=== PATIENT | female | born 1940 | race Caucasian/White ===

== ENCOUNTER → 2023-04-07 07:33 | Outpatient (REF) | payer OTHER, SELFPAY | LOC: RCS 07:33 | PROVIDERS: ATTENDING PHYSICIAN Specialist; FAMILY PHYSICIAN Family Medicine | DX: R94.01 Abnormal electroencephalogram [EEG] (principal) | CPT/HCPCS: 95816 ==

== ENCOUNTER 2023-06-08 13:21 | Emergency (ER) | payer OTHER, SELFPAY ==
[2023-06-08 13:26] VITALS: BP 196/108
--- NOTE | 2023-06-08 14:18 | ED.GENMED ---
History of Present Illness
General
Chief Complaint: Fainting/Passed Out
Source: patient and records
Exam Limitations: none
Time Seen by Provider: 06/08/23 14:00
Travel History
Have you had any contact with someone who has COVID-19?: No
Do you have any symptoms of coronavirus? Fever > 100 degrees, chills, cough, shortness of breath, sore throat, loss of taste or smell, muscle aches, or headache?: No
History of Present Illness
History of Present Illness:
82-year-old female with a past medical history of dementia, COPD, hypertension, unspecified brain lesion presenting emergency department today with dizziness preceding a syncopal episode along with head trauma. Patient reports that she was on the
phone with her friend today when she started to feel dizzy and subsequently fell. She is unsure if she lost consciousness or not. No one witnessed this fall. Patient states that she injured a small abrasion to the right side of her forehead along
with soft tissue swelling, patient denies any other injuries. Patient has any neck pain, extremity pain, abdominal pain. Patient feels well currently, denies any remaining dizziness. Denies chest pain, shortness of breath.
Past History
Past History
ED Past Medical History: Cancer (Lung), COPD and HTN
Social History
Tobacco: Former smoker
Review of Systems
Review of Systems
All Other Systems: ROS reviewed and negative except as documented in HPI and ROS
Phy Exam
Physical Exam
Physical Exam:
Vitals: Patient is hypertensive
General: Patient is well-appearing in no acute distress
Skin: There is a small abrasion to the right forehead with associated hematoma.
Head: See above. No facial ecchymosis, no bony deformities. Negative Hebert sign, negative raccoon sign.
Eyes: Extraocular eye movements intact. No entrapment.
Ears: No hemotympanum bilaterally.
Cardiac: Regular rate and rhythm, no murmurs
Pulm: Normal respiratory effort
Abdomen: No abdominal tenderness
Musculoskeletal: No tenderness palpation of cervical spine. Full range of motion cervical spine.
Neuro: AAOx3. Cranial nerves II through XII intact. No focal neurologic deficits. Heel to green, finger to nose testing intact. Patient at times will loose track of her thoughts, I called her memory care unit and they report that this is patient's
baseline.
Course
Orders/Labs/Results
Orders:
Orders
06/08/23 14:01
Electrocardiogram (*1) Urgent
Reason for Study: Syncope
EKG- Treatment ONCE
06/08/23 14:17
CT Head W/o Iv Contrast Urgent
Comment:
Reason For Exam: dizziness, head trauma
06/08/23 14:25
Complete Blood Count/With Diff Urgent
Comprehensive Metabolic Panel Urgent
06/08/23 17:50
Urinalysis Reflex To Culture Urgent
Date Specimen was Collected: 06/08/23
Time Specimen was Collected: 17:49
Abnormal Lab Results
06/08/23
14:25
WBC 14.5 H 10^3/uL
(4.8-10.8)
Abs Immat Gran (auto) 0.1 H 10^3/uL
(0-0.05)
Absolute Neuts (auto) 12.9 H 10^3/uL
(1.4-6.5)
Absolute Lymphs (auto) 0.8 L 10^3/uL
(1.2-3.4)
Absolute Monos (auto) 0.8 H 10^3/uL
(0.1-0.6)
Immature Gran % 0.6 H %
(0-0.5)
Neutrophils % 88.5 H %
(42.2-75.2)
Lymphocytes % 5.2 L %
(20.5-51.1)
Carbon Dioxide 31 H mmol/L
(22-30)
BUN 19 H mg/dl
(7-17)
Glucose 135 H mg/dl
(70-99)
AST 50 H U/L
(14-36)
ALT 51 H U/L
(0-35)
06/08/23 14:25
06/08/23 14:25
Vital Signs
Initial and Last Documented VS:
Initial Vital Signs
Temp Pulse Resp BP Pulse Ox
97.6 F 75 20 196/108 96
06/08/23 13:26 06/08/23 13:26 06/08/23 13:26 06/08/23 13:26 06/08/23 13:26
Last Documented Vital Signs
Temp Pulse Resp BP Pulse Ox
97.6 F 74 22 191/96 96
06/08/23 13:26 06/08/23 17:15 06/08/23 17:15 06/08/23 17:00 06/08/23 17:15
MDM/Problems Addressed
Differential Diagnosis Includes:
ddx vasovagal syncope, orthostatic hypotension, heart block, urinary tract infection epidural hematoma, intraparenchymal hemorrhage
MDM/Problems Addressed:
dizziness and syncope
Chronic conditions affecting care: HTN, Neurological disorder and Psychiatric illness
Acute Exacerbation and/or Progression of Chronic Illness: HTN, Neurological disorder and Psychiatric illness
*Pulse Oximetry
Patient hypoxic: no
*Critical Care Note
Total Time (30-74mins, 75-104mins- exclusive of procedures): Not Applicable
Data Reviewed
Review of Other/Old Records Reveals: Records (Reviewed ER physician documentation from 02/13/2023) and Discharge Summary (no discharge summaries in [facility] to review)
Source: patient and records
Patient Management
Escalation/DeEscalation of care consider admission/obs:
82-year-old female with a past medical history of dementia, COPD, hypertension, unspecified brain lesion presenting emergency department today with dizziness and a fall. She believes she passed out, but she is not entirely sure. I called patient's
memory care unit who reports that patient exited room to notify the nurses that she had fallen. No one witnessed the fall. Currently, she has no further dizziness and no headaches. She feels well. She denies neck pain. She denies any chest pain
or shortness of breath. Here in the emergency department, her CT of the head demonstrated chronic brain lesion but no new hemorrhages or fractures. Her CBC did demonstrate a leukocytosis likely reactive, CMP unremarkable. Considering patient's
history of dementia and her leukocytosis, urinalysis is done which was negative for infection. Patient is stable for discharge at this time. Plan was discussed with my attending Dr. Campos who is in agreement with plan.
Patient was also noted to have a high blood pressure upon arrival. Patient does have a history of hypertension, she does take metoprolol daily. No indication for acute lowering of her blood pressure at this time. I advised patient follow-up with
her primary care provider on this issue. I called her memory care unit and advised that they make sure she follows up on this issue and initiate daily blood pressure checks. Nurse at unit in agreement with this plan and will initiate. Patient
stable for discharge. All patient's questions answered.
Update Note
Update Note:
3:37 pm--I spoke to patient's nurse at her memory care facility who states that patient is confused at baseline but she is alert and oriented x 3 at baseline. Nurse reports that patient exited her room and reported to the nurses that she fell.
Patient had a small abrasion on her forehead and swelling to the right side of her forehead upon exit of the room. At this time, she was sent to the emergency department. No one witnessed the fall.
ED Attending Note
-
Portions of this chart may have been created with voice recognition software.� Occasional wrong word or��sound alike� substitutions may have occurred due to the inherent limitations of voice recognition software.
Discharge Plan
Departure
Patient Disposition: Home (Routine Discharge)
Date of Disposition: 06/08/23
Time of Disposition: 18:12
Patient with high blood pressure during this ER visit?: Yes
Condition: Good
Discharge Problem:
Syncope
Instructions: Syncope (Fainting) (DC), Dizziness, Nonvertigo, (DC), BLOOD PRESSURE
Prescriptions:
No Action
metoprolol succinate 25 mg tablet extended release 24 hr
25 mg PO DAILY Qty: 20 1RF
Referrals:
Stanislaw Alonso MD [Family Provider] -
Activity Restrictions/Additional Instructions:
Your blood pressure was elevated today. Please continue to take your blood pressure medication daily and please follow up with your primary care provider regarding this.
Please return emergency department should you experience CHEST PAIN, SHORTNESS OF BREATH, FURTHER SYNCOPAL EPISODES, PALPITATIONS, HEADACHE, DIFFICULTY SPEAKING, CONFUSION, FACIAL DROOP, OR OTHER CONCERNING SIGNS OR SYMPTOMS.
Interventions
Interventions:
*Risk Screen - Suicide Last Done: 06/08/23 15:59
*General Assessment Last Done: 06/08/23 15:59
*Neglect/Abuse Screening Last Done: 06/08/23 15:59
ED- Fall Risk Assessment Last Done: 06/08/23 15:59
*ED COVID-19 Vaccine History Last Done: 06/08/23 13:26
*Nursing Disposition Last Done: 06/08/23 18:23
ED- Cardiac Assessment Last Done: 06/08/23 15:59
ED- Neurological Assessment Last Done: 06/08/23 15:59
Discharge Date and Time
Discharge Date/Time: 06/08/23 18:23
Print Language: WOLOF
[2023-06-08 14:19] VITALS: BP 189/86
[2023-06-08 14:25] VITALS: BMI 19.9
[2023-06-08 14:44] LABS: % Basophils 0.4 % (0-2); % Eosinophils 0.1 % (0-6); % Immature Granulocytes 0.6 % (0-0.5); % Lymphocytes 5.2 % (20.5-51.1); % Monocytes 5.2 % (1.7-9.3); % Neutrophils 88.5 % (42.2-75.2); Absolute Basophils 0.1 10^3/uL (0-0.2); Absolute Immature Granulocytes 0.1 10^3/uL (0-0.05); Absolute Lymphocytes 0.8 10^3/uL (1.2-3.4); Absolute Monocytes 0.8 10^3/uL (0.1-0.6); Absolute Neutrophils 12.9 10^3/uL (1.4-6.5); Hematocrit 40.1 % (37.0-47.0); Hemoglobin 13.3 g/dL (12.0-16.0); Mean Corp Hgb Conc. 33.2 g/dL (33.0-37.0); Mean Corpuscular Hgb 30.9 pg (27.0-31.0); Mean Corpuscular Volume 93.3 fL (81.0-99.0); Mean Platelet Volume 10.1 fL (7.4-10.4); Nucleated Red Blood Cells % 0 %; Platelet Count 263 10^3/uL (130-400); Red Cell Dist. Width 14.2 % (11.5-14.5); White Blood Cell Count 14.5 10^3/uL (4.8-10.8)
[2023-06-08 15:00] LABS: ALT (SGPT) 51 U/L (0-35); AST (SGOT) 50 U/L (14-36); Alkaline Phosphatase 94 U/L (38-126); Blood Urea Nitrogen 19 mg/dl (7-17); Calcium 9.7 mg/dl (8.4-10.2); Carbon Dioxide 31 mmol/L (22-30); Chloride 100 mmol/L (98-107); Estimated Creatinine Clearance 53 ml/min; Glucose 135 mg/dl (70-99); Potassium 3.5 mmol/L (3.5-5.1); Sodium 139 mmol/L (135-145); Total Bilirubin 0.5 mg/dl (0.2-1.3); Total Protein 6.9 g/dl (6.3-8.2); eGFR > 60.00
[2023-06-08 15:44] VITALS: BP 190/86
[2023-06-08 16:00] VITALS: BP 188/105
[2023-06-08 16:34] VITALS: BP 197/103
[2023-06-08 17:00] VITALS: BP 191/96
[2023-06-08 18:01] LABS: Urine Albumin Negative (Neg - Trace); Urine Bilirubin Negative (Negative); Urine Character Clear (Clear); Urine Color Yellow; Urine Glucose Negative (Negative); Urine Ketone Negative (Negative); Urine Leukocyte Negative (Negative); Urine Nitrite Negative (Negative); Urine Occult Blood Negative (Negative); Urine Specific Gravity 1.015 (<1.030); Urine Urobilinogen Negative (Neg - 1+)
== END 2023-06-08 18:23 | disposition home or self-care (01) ==
LOC: EMR 13:21
PROVIDERS: Physician Assistant; EMERGENCY PHYSICIAN Emergency Medicine; FAMILY PHYSICIAN Family Medicine
DX: R55 Syncope and collapse (principal); S00.81XA Abrasion of other part of head, initial encounter; W19.XXXA Unspecified fall, initial encounter; I10 Essential (primary) hypertension; F03.90 Unspecified dementia, unspecified severity, without behavioral disturbance, psychotic disturbance, mood disturbance, and anxiety; Z87.891 Personal history of nicotine dependence
CPT/HCPCS: 99285; 70450; 80053; 81003; 85025; 93005

== ENCOUNTER 2023-07-14 12:55 | Emergency (ER) | payer OTHER, SELFPAY ==
[2023-07-14] VITALS (14 sets, daily range): BP systolic 143–203; BP diastolic 70–154
[2023-07-14] MEDS: ATIVAN 0.5 MG IV (13:03)
--- NOTE | 2023-07-14 13:09 | ED.GENMED ---
History of Present Illness
General
Chief Complaint: Seizure
Source: patient
Exam Limitations: none
Time Seen by Provider: 07/14/23 12:59
Nursing documentation reviewed up to this point in time: agreed with
Travel History
Have you had any contact with someone who has COVID-19?: Unable to Answer
Do you have any symptoms of coronavirus? Fever > 100 degrees, chills, cough, shortness of breath, sore throat, loss of taste or smell, muscle aches, or headache?: Unable to Answer
History of Present Illness
History of Present Illness:
Patient with history of dementia, presents to ED [facility] and [facility], secondary to witnessed seizure lasting 1 to 2 minutes, while eating lunch. Per paramedics, when initially arrived at scene, patient was not awake, but shortly
afterwards started to become more responsive. Upon arrival to ED, patient is alert and awake, but not following any commands. Unable to obtain any further information at this time.
Past History
Past History
ED Past Medical History: Cancer (Lung), COPD and HTN
Social History
Tobacco: Former smoker
Review of Systems
Review of Systems
Unable to obtain full review of systems at this time due to: dementia
All Other Systems: Not applicable
Phy Exam
Physical Exam
Physical Exam:
Physical Exam
General: no apparent distress, not acutely ill. afebrile
Head: nc/at. eomi
Neck: supple. no meningeal signs.
Heart: s1/s2 regular rate and rhythm, no murmur. equal radial pulses.
Lungs: no acute respiratory distress. clear bilaterally
Abdomen: normal bowel sounds. not tender.
Neuro: alert and awake. no focal neurological deficits. not following commands
Skin: no rash
Extremities: no edema. no calf tenderness.
Course
Orders/Labs/Results
Orders:
Orders
07/14/23 13:00
Lorazepam [Ativan] 0.5 mg IV NOW STA
07/14/23 13:07
Levetiracetam Injectable [Keppra] 1,000 mg IV NOW STA
07/14/23 13:11
Complete Blood Count/With Diff Urgent
Comprehensive Metabolic Panel Urgent
Magnesium Urgent
TSH Urgent
Urinalysis Reflex To Culture Urgent
Date Specimen was Collected: 07/14/23
Time Specimen was Collected: 13:10
Urine Microscopic Reflex Cult Urgent
07/14/23 13:17
Electrocardiogram (*1) Stat
Comment: ALREADY DONE IN ED
07/14/23 13:23
CT Head W/o Iv Contrast Urgent
Comment:
Reason For Exam: new onset seizure
07/14/23 14:08
Lorazepam [Ativan] 2 mg .ROUTE .STK-MED ONE
Abnormal Lab Results
07/14/23
13:11
MCHC 32.9 L g/dL
(33.0-37.0)
Abs Immat Gran (auto) 0.2 H 10^3/uL
(0-0.05)
Absolute Monos (auto) 0.7 H 10^3/uL
(0.1-0.6)
Immature Gran % 2.2 H %
(0-0.5)
Monocytes % 9.5 H %
(1.7-9.3)
Glucose 104 H mg/dl
(70-99)
AST 43 H U/L
(14-36)
ALT 36 H U/L
(0-35)
TSH 7.04 H uIU/ml
(0.47-4.68)
Ur Occult Blood Reflex Trace A
(Negative)
Urine Bacteria (Reflex) Few A
(Negative)
Urine Albumin (Reflex) 1+ A
(Neg - Trace)
07/14/23 13:11
07/14/23 13:11
Vital Signs
Initial and Last Documented VS:
Initial Vital Signs
BP
203/110
07/14/23 13:01
Last Documented Vital Signs
Temp Pulse Resp BP Pulse Ox
98.1 F 69 18 176/74 95
07/14/23 13:18 07/14/23 19:06 07/14/23 19:06 07/14/23 19:06 07/14/23 19:06
MDM/Problems Addressed
MDM/Problems Addressed:
History and exam concerning for new onset seizure. Discussed with on-call neurologist, Dr. Crespo. 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
Does recommend obtaining CT head, to make sure there is no bleed or any other significant changes. If unchanged, will start on Keppra 500 mg twice daily and [facility] to [facility] for [facility].
Discussed with patient's power of senior attorney at bedside, who agrees with treatment plan.
*Critical Care Note
Total Time (30-74mins, 75-104mins- exclusive of procedures): Not Applicable
ED Attending Note
-
Portions of this chart may have been created with voice recognition software.� Occasional wrong word or��sound alike� substitutions may have occurred due to the inherent limitations of voice recognition software.
Discharge Plan
Departure
Patient Disposition: [facility]
Date of Disposition: 07/14/23
Time of Disposition: 15:20
Discharge Problem:
Seizure
Instructions: Seizures, Adult (DC)
Prescriptions:
New
levetiracetam [Keppra] 500 mg tablet
500 mg PO BID Qty: 60 0RF
No Action
cetirizine 10 mg Tablet
10 mg PO DAILY
losartan 25 mg Tablet
25 mg PO DAILY
sertraline 25 mg Tablet
25 mg PO DAILY
metoprolol succinate [Toprol XL] 25 mg Tablet Extended Release 24 Hr
25 mg PO BID
fluticasone propionate [Flonase] 50 mcg/actuation [place],Suspension
1 spray INTRANASAL DAILY
memantine 10 mg Tablet
10 mg PO HS
budesonide-formoterol [Breyna] 160-4.5 mcg/actuation Hfa Aerosol Inhaler
2 inh INHALATION R BID
guaifenesin [Mucinex] 600 mg Tablet Extended Release 12hr
600 mg PO BIDPRN PRN (Reason: COUGH)
Referrals:
UNKNOWN - PT DOES,NOT KNOW [Family Provider] -
Activity Restrictions/Additional Instructions:
As discussed, [facility] are [facility] for [facility].
Interventions
Interventions:
*Risk Screen - Suicide Last Done: 07/14/23 13:18
*Neglect/Abuse Screening Last Done: 07/14/23 13:18
*ED COVID-19 Vaccine History Last Done: 07/14/23 13:18
ED- Cardiac Assessment Last Done: 07/14/23 13:18
ED- Neurological Assessment Last Done: 07/14/23 13:18
ED- Pulmonary Assessment Last Done: 07/14/23 13:18
Discharge Date and Time
Print Language: BRAZILIAN
[2023-07-14] MEDS: KEPPRA 1000 MG IV (13:17)
[2023-07-14 13:24] LABS: % Basophils 0.9 % (0-2); % Eosinophils 1.6 % (0-6); % Immature Granulocytes 2.2 % (0-0.5); % Lymphocytes 24.6 % (20.5-51.1); % Monocytes 9.5 % (1.7-9.3); % Neutrophils 61.2 % (42.2-75.2); Absolute Basophils 0.1 10^3/uL (0-0.2); Absolute Eosinophils 0.1 10^3/uL (0-0.7); Absolute Immature Granulocytes 0.2 10^3/uL (0-0.05); Absolute Lymphocytes 1.9 10^3/uL (1.2-3.4); Absolute Monocytes 0.7 10^3/uL (0.1-0.6); Absolute Neutrophils 4.7 10^3/uL (1.4-6.5); Hematocrit 40.1 % (37.0-47.0); Hemoglobin 13.2 g/dL (12.0-16.0); Mean Corp Hgb Conc. 32.9 g/dL (33.0-37.0); Mean Corpuscular Hgb 30.6 pg (27.0-31.0); Mean Platelet Volume 9.7 fL (7.4-10.4); Nucleated Red Blood Cells % 0 %; Platelet Count 229 10^3/uL (130-400); Red Blood Cell Count 4.31 10^6/uL (4.20-5.40); Red Cell Dist. Width 13.8 % (11.5-14.5); White Blood Cell Count 7.7 10^3/uL (4.8-10.8)
[2023-07-14 13:47] LABS: Urine Albumin 1+ (Neg - Trace); Urine Bilirubin Negative (Negative); Urine Character Clear (Clear); Urine Color Straw; Urine Glucose Negative (Negative); Urine Ketone Negative (Negative); Urine Leukocyte Negative (Negative); Urine Nitrite Negative (Negative); Urine Occult Blood Trace (Negative); Urine Specific Gravity 1.015 (<1.030); Urine Urobilinogen Negative (Neg - 1+)
[2023-07-14 14:06] LABS: ALT (SGPT) 36 U/L (0-35); AST (SGOT) 43 U/L (14-36); Albumin 4.2 g/dl (3.5-5.0); Alkaline Phosphatase 71 U/L (38-126); Blood Urea Nitrogen 16 mg/dl (7-17); Calcium 8.9 mg/dl (8.4-10.2); Carbon Dioxide 23 mmol/L (22-30); Chloride 106 mmol/L (98-107); Glucose 104 mg/dl (70-99); Sodium 141 mmol/L (135-145); Total Bilirubin 0.6 mg/dl (0.2-1.3); Total Protein 7.3 g/dl (6.3-8.2); eGFR > 60.00
[2023-07-14 14:09] LABS: Urine Bacteria Few (Negative); Urine Red Blood Cell 0-2 /HPF (0-2); Urine Squamous Cell 0-2 /LPF (Few); Urine White Cell 0-2 /HPF (0-5)
[2023-07-14 14:19] LABS: TSH 7.04 uIU/ml (0.47-4.68)
== END 2023-07-14 21:01 ==
LOC: EMR 12:55
PROVIDERS: EMERGENCY PHYSICIAN Emergency Medicine
DX: R56.9 Unspecified convulsions (principal); I67.89 Other cerebrovascular disease; F03.90 Unspecified dementia, unspecified severity, without behavioral disturbance, psychotic disturbance, mood disturbance, and anxiety
CPT/HCPCS: 99285; 96374; 96375; 70450; 80053; 81003; 81015; 83735; 84443; 85025; 93005

== ENCOUNTER 2023-12-09 09:28 | Emergency (ER) | payer OTHER, SELFPAY ==
[2023-12-09 09:38] VITALS: BMI 23.5
[2023-12-09 09:40] VITALS: BP 179/87
[2023-12-09 10:00] VITALS: BP 195/75
--- NOTE | 2023-12-09 10:47 | ED.GENMED ---
History of Present Illness
General
Chief Complaint: Headache
Source: patient, ambulance crew and detention
Exam Limitations: none
Time Seen by Provider: 12/09/23 09:42
Nursing documentation reviewed up to this point in time: agreed with
History of Present Illness
History of Present Illness:
82-year-old female with a past medical history of dementia, seizures, COPD, lung cancer with brain metastasis who presents to the emergency room from [facility] where she lives in personal-care; she presents via EMS for evaluation of
dizziness, headache, confusion. Patient is a very limited historian due to her dementia; she is oriented x 2, she says that she is here for dizziness and she thinks it started this morning but she is not completely confident of the timeline. She
thinks she may have had a headache earlier but again she is somewhat unreliable and inconsistent with her history. I spoke with the detention staff at [facility] directly to obtain collateral history: They report that this morning when they
were giving her her morning meds she was complaining of some lightheadedness and she appeared to be somewhat disoriented (they say that she was doing some repetitive questioning). She was complaining of a bit of a headache yesterday and they
noticed a runny nose�they attributed this to mild virus or allergy symptoms however with dizziness this morning they sent her to the ER to be evaluated. When asked the patient directly if she is having headache she denies it at present. She denies
having any chest pain or shortness of breath at present. She is not sure whether she has had a cough but does not appear to be coughing today. She denies abdominal pain or nausea.
Past History
Past History
ED Past Medical History: Cancer (Lung), COPD and HTN
Social History
Tobacco: Former smoker
Review of Systems
Review of Systems
Unable to obtain full review of systems at this time due to: dementia (Dementia somewhat limits review of systems)
Constitutional: Denies fever
EENT: Reports runny nose
Respiratory: Denies cough or trouble breathing
Cardiac: Denies chest pain
ABD/GI: Denies abdominal pain, nausea or vomiting
: Denies flank pain
Musculoskeletal: Denies neck pain or back pain
Neurological: Reports dizzy and headache
Phy Exam
Physical Exam
Physical Exam:
General: Awake, alert, oriented x2; no acute distress
Head: Normocephalic, atraumatic
Eyes: Conjunctiva normal, EOMI without nystagmus, pupils equal round and reactive to light bilaterally
Throat: Airway intact, handling secretions
Neck: Trachea midline, supple without meningismus
Lungs: Clear to auscultation bilaterally, no wheezing, rales, rhonchi
Heart: Regular rate and rhythm, faint systolic murmur
Abd: Soft, non distended, nontender
Neuro: Cranial nerves intact, following commands consistently, speech fluid no dysarthria, motor and sensory function intact upper and lower extremities, no limb ataxia
Extremities: No edema in extremities, warm and well-perfused
Scores
Heart Failure Risk
Heart Failure Risk Score: Not Applicable
Heart Score for Chest Pain Patients
STEMI patient?: Not applicable
Withdrawal Assessment of Alcohol
Withdrawal Assessment Completed?: Not applicable
Course
Orders/Labs/Results
Orders:
Orders
12/09/23 10:30
CT Head W/o Iv Contrast Urgent
Comment:
Reason For Exam: headache, confused
12/09/23 10:31
Electrocardiogram (*1) Urgent
Reason for Study: Fatigue / Weakness
EKG- Treatment ONCE
12/09/23 10:54
CR Chest - 2 Views Urgent
Comment:
Reason For Exam: weakness, confusion--eval for pna
12/09/23 10:56
COVID-19 Antigen Urgent
Source: Nasal Swab
Complete Blood Count/With Diff Urgent
Comprehensive Metabolic Panel Urgent
Urinalysis Reflex To Culture Urgent
Date Specimen was Collected: 12/09/23
Time Specimen was Collected: 10:32
Influenza A+B Rapid Molecular Urgent
NEREYDA Source: Nasal Swab
Specimen Description:
12/09/23 12:23
Dexamethasone Sod Phosphate [Decadron] 10 mg IV NOW STA
Levetiracetam Injectable [Keppra] 1,000 mg IV NOW STA
Abnormal Lab Results
12/09/23
10:56
Monocytes % 9.8 H %
(1.7-9.3)
12/09/23 10:56
12/09/23 10:56
Vital Signs
Initial and Last Documented VS:
Initial Vital Signs
Temp Pulse Resp Pulse Ox
36.7 C 62 20 95
12/09/23 09:38 12/09/23 09:38 12/09/23 09:38 12/09/23 09:38
Last Documented Vital Signs
Temp Pulse Resp BP Pulse Ox
36.7 C 58 21 195/75 96
12/09/23 09:38 12/09/23 11:00 12/09/23 11:00 12/09/23 10:00 12/09/23 11:00
MDM/Problems Addressed
Differential Diagnosis Includes:
Viral infection, stroke/hemorrhage, UTI or pneumonia, migraine headache, focal seizure
MDM/Problems Addressed:
82-year-old female with history as documented presents for evaluation of dizziness/lightheadedness and mild confusion this morning in the setting of recent mild headaches and rhinorrhea over the past 24 hours. Vitals significant for hypertension
otherwise normal. Physical exam as above. Will check labs including a CBC and a CMP. Check urinalysis. Swab for COVID and flu. Check chest x-ray. Check an EKG. Will check CT head. Monitor closely reassess after the above.
Labs reviewed: CBC and CMP unremarkable. COVID-negative. Chest x-ray no acute disease. Awaiting results of CT head.
CT head shows new severe vasogenic edema throughout the right temporal and parietal as well as the right frontal lobe, extends into the internal and external capsules with mass effect and mild medial temporal lobe uncal herniation. Significantly
progressed from June. I spoke with the patient and her sister who was at the bedside. She has been receiving care for small brain lesions (metastatic lung cancer) with radiation oncology through [facility] (Dr. Kim Quiroz). I called Dr. Quiroz to
review results�mary anne did have a MRI in September which did not show any vasogenic edema only small brain lesions. There had been discussions about whole brain radiation treatment but given that her lesions were small and that she had baseline cognitive
dysfunction there was concern about aggressive whole brain radiation significantly worsening her already significant cognitive dysfunction and so after initial treatment with radiation in August 2022 no further radiation treatments recently. Given
symptoms and significant progression today will need admission and neurosurgical consultation. Given that all of her care has been through the [facility] system, will discuss with neurosurgery team at [facility] for transfer.
Case discussed with transfer center at [facility], neurosurgery requesting ER to ER transfer they will evaluate the ER there. Patient accepted for transfer by ER physician Dr. Gardner. In the meantime we will treat with IV Keppra, IV steroid.
Monitor pending transport.
Chronic conditions affecting care:
Dementia
Acute Exacerbation and/or Progression of Chronic Illness:
Acutely hypertensive
Acute Exacerbation and/or Progression of Chronic Illness: HTN
*Radiology
Radiology exam reviewed: radiology read reviewed
*Pulse Oximetry
Patient hypoxic: no
*Critical Care Note
Total Time (30-74mins, 75-104mins- exclusive of procedures): Not Applicable
Data Reviewed
Review of Other/Old Records Reveals: Labs and Records
Source: patient, records, ambulance crew, detention and detention records
Patient Management
Discussion with other providers: PCP (Discussed with primary treating oncologist), Steeple Jack (Discussed with neurosurgery at [facility]) and shelter staff (Spoke directly with nursing staff)
Escalation/DeEscalation of care consider admission/obs:
Admission indicated�transfer
ED Attending Note
-
Portions of this chart may have been created with voice recognition software.� Occasional wrong word or��sound alike� substitutions may have occurred due to the inherent limitations of voice recognition software.
Discharge Plan
Departure
Patient Disposition: Acute Care Hospital
Date of Disposition: 12/09/23
Time of Disposition: 12:10
Discharge Problem:
Brain mass
Prescriptions:
No Action
cetirizine 10 mg Tablet
10 mg PO DAILY
losartan 25 mg Tablet
25 mg PO DAILY
sertraline 25 mg Tablet
25 mg PO DAILY
metoprolol succinate [Toprol XL] 25 mg Tablet Extended Release 24 Hr
25 mg PO BID
fluticasone propionate [Flonase] 50 mcg/actuation [place],Suspension
1 spray INTRANASAL DAILY
memantine 10 mg Tablet
10 mg PO HS
budesonide-formoterol [Breyna] 160-4.5 mcg/actuation Hfa Aerosol Inhaler
2 inh INHALATION R BID
guaifenesin [Mucinex] 600 mg Tablet Extended Release 12hr
600 mg PO BIDPRN PRN (Reason: COUGH)
levetiracetam [Keppra] 500 mg tablet
500 mg PO BID Qty: 60 0RF
Referrals:
PRIVATE,PHYSICIAN [Family Provider] -
Hospital Transfer
Other hospital: [facility]
I certify that the patient requires transfer: Yes
Discussed case with accepting physician: Kendra
Reason for transfer: specialties available and continuity of care PCP
Interventions
Interventions:
*Risk Screen - Suicide Last Done: 12/09/23 09:38
*General Assessment Last Done: 12/09/23 09:38
*Neglect/Abuse Screening Last Done: 12/09/23 09:38
ED- Neurological Assessment Last Done: 12/09/23 09:38
Discharge Date and Time
Print Language: SWAZI
[2023-12-09 11:14] LABS: % Basophils 1.1 % (0-2); % Eosinophils 2.6 % (0-6); % Immature Granulocytes 0.2 % (0-0.5); % Monocytes 9.8 % (1.7-9.3); % Neutrophils 64.3 % (42.2-75.2); Absolute Basophils 0.1 10^3/uL (0-0.2); Absolute Eosinophils 0.2 10^3/uL (0-0.7); Absolute Lymphocytes 1.3 10^3/uL (1.2-3.4); Absolute Monocytes 0.6 10^3/uL (0.1-0.6); Absolute Neutrophils 3.9 10^3/uL (1.4-6.5); Hematocrit 38.6 % (37.0-47.0); Hemoglobin 13.1 g/dL (12.0-16.0); Mean Corp Hgb Conc. 33.9 g/dL (33.0-37.0); Mean Corpuscular Hgb 29.9 pg (27.0-31.0); Mean Corpuscular Volume 88.1 fL (81.0-99.0); Nucleated Red Blood Cells % 0 %; Red Blood Cell Count 4.38 10^6/uL (4.20-5.40); Red Cell Dist. Width 13.3 % (11.5-14.5); White Blood Cell Count 6.1 10^3/uL (4.8-10.8)
[2023-12-09 11:19] LABS: ALT (SGPT) 21 U/L (0-35); AST (SGOT) 27 U/L (14-36); Albumin 3.9 g/dl (3.5-5.0); Alkaline Phosphatase 80 U/L (38-126); Blood Urea Nitrogen 14 mg/dl (7-17); Calcium 9.5 mg/dl (8.4-10.2); Carbon Dioxide 30 mmol/L (22-30); Chloride 104 mmol/L (98-107); Estimated Creatinine Clearance 42 ml/min; Glucose 91 mg/dl (70-99); Sodium 141 mmol/L (135-145); Total Bilirubin 0.8 mg/dl (0.2-1.3); Total Protein 6.7 g/dl (6.3-8.2); eGFR > 60.00
[2023-12-09 11:22] LABS: COVID-19 Antigen Negative (Negative)
[2023-12-09 11:52] LABS: Platelet Count 219 10^3/uL (130-400)
[2023-12-09] MEDS: DECADRON 10 MG IV (12:30)
[2023-12-09] MEDS: KEPPRA 1000 MG IV (12:30)
[2023-12-09 13:00] VITALS: BP 160/80
[2023-12-09 13:17] VITALS: BP 160/80
[2023-12-09 14:47] LABS: Urine Albumin Negative (Neg - Trace); Urine Bilirubin Negative (Negative); Urine Character Clear (Clear); Urine Color Yellow; Urine Glucose Negative (Negative); Urine Ketone Negative (Negative); Urine Leukocyte Negative (Negative); Urine Nitrite Negative (Negative); Urine Occult Blood Negative (Negative); Urine Specific Gravity 1.015 (<1.030); Urine Urobilinogen Negative (Neg - 1+)
== END 2023-12-09 13:55 | disposition short-term general hospital (02) ==
LOC: EMR 09:28
PROVIDERS: EMERGENCY PHYSICIAN Emergency Medicine
DX: G93.9 Disorder of brain, unspecified (principal); C34.90 Malignant neoplasm of unspecified part of unspecified bronchus or lung; C79.31 Secondary malignant neoplasm of brain; F03.90 Unspecified dementia, unspecified severity, without behavioral disturbance, psychotic disturbance, mood disturbance, and anxiety; I11.9 Hypertensive heart disease without heart failure; J44.9 Chronic obstructive pulmonary disease, unspecified; Z87.891 Personal history of nicotine dependence
CPT/HCPCS: 99284; 96374; 96375; 70450; 71046; 80053; 81003; 85025; 87502; 87811; 93005; 94640; 99283

== ENCOUNTER 2024-01-15 03:34 | Observation (INO) | payer OTHER, SELFPAY ==
[2024-01-14 21:17] VITALS: BP 161/77; BMI 20.2
[2024-01-14 21:21] VITALS: BP 161/77
[2024-01-14 22:00] VITALS: BP 176/70
--- NOTE | 2024-01-14 22:33 | ED.GENMED ---
History of Present Illness
General
Chief Complaint: Back Pain
Source: records
Exam Limitations: clinical condition
Time Seen by Provider: 01/14/24 22:03
History of Present Illness
History of Present Illness:
83-year-old female sent in for low back pain. No trauma. Appears positional in nature. No history of same. No other symptoms noted. No abdominal pain fever chills vomiting etc.
Past History
Past History
ED Past Medical History: Cancer (Lung), COPD and HTN
Social History
Tobacco: Former smoker
Review of Systems
Review of Systems
All Other Systems: Not applicable
Constitutional: Denies fever or chills
ABD/GI: Reports no symptoms
: Reports no symptoms
Phy Exam
Physical Exam
Physical Exam:
GENERAL: Alert no distress. Patient did state her pain started today.
EYE: Orbits normal.
NECK: Supple, no significant adenopathy.
ENT: Pharynx without erythema
CARDIAC: Regular rate and rhythm without any obvious murmurs.
LUNGS: Clear breath sounds,normal
ABDOMEN: Soft, without focal tenderness or distention
NEUROLOGICAL: Alert and oriented , grossly non-focal
SKIN: Warm and dry, no rash or lesion, no discoloration, skin intact.
MUSCULOSKELETAL: No edema,no deformity.Good color. Back pain appears very positional. She has some increased pain with right straight leg raising. No shooting pain down the legs. No weakness in the legs. Unable to sit up secondary to pain also
has significant pain with lateral rotation.
PSYCH: Normal and appropriate interaction.
Course
Orders/Labs/Results
Orders:
Orders
01/14/24 22:14
IV Insert/Care/Rem.- Treatment PRN
Iohexol [Omnipaque] See Protocol PO NOW STA
Ketorolac [Toradol] 15 mg IV NOW STA
01/14/24 22:45
Complete Blood Count/With Diff Urgent
Comprehensive Metabolic Panel Urgent
Lipase Urgent
01/14/24 23:29
0.9% Sodium Chloride 500 ml [Nss] 500 ml IV BOLUS
01/15/24 00:03
CT Abd/Pel (IV only)-DH only Urgent
Reason For Exam: back pain. lipase elev
Abnormal Lab Results
01/14/24
22:45
WBC 16.0 H 10^3/uL
(4.8-10.8)
Abs Immat Gran (auto) 0.2 H 10^3/uL
(0-0.05)
Absolute Neuts (auto) 13.4 H 10^3/uL
(1.4-6.5)
Absolute Monos (auto) 1.0 H 10^3/uL
(0.1-0.6)
Immature Gran % 1.5 H %
(0-0.5)
Neutrophils % 84.2 H %
(42.2-75.2)
Lymphocytes % 7.6 L %
(20.5-51.1)
Carbon Dioxide 34 H mmol/L
(22-30)
BUN 32 H mg/dl
(7-17)
AST 55 H U/L
(14-36)
ALT 219 H U/L
(0-35)
Total Protein 6.0 L g/dl
(6.3-8.2)
Lipase 3025 H* U/L
(23-300)
01/14/24 22:45
01/14/24 22:45
Vital Signs
Initial and Last Documented VS:
Initial Vital Signs
Temp Pulse Resp BP Pulse Ox
97.7 F 52 16 161/77 97
01/14/24 21:17 01/14/24 21:17 01/14/24 21:17 01/14/24 21:17 01/14/24 21:17
Last Documented Vital Signs
Temp Pulse Resp BP Pulse Ox
97.7 F 55 17 174/79 95
01/14/24 21:17 01/15/24 01:00 01/15/24 01:00 01/15/24 01:00 01/15/24 01:00
MDM/Problems Addressed
Differential Diagnosis Includes:
No trauma with back pain that clinically is very positional in nature. Will check labs. Plain CT of abdomen pelvis which should get a good view of the lumbar spine. Doubt nonorthopedic cause of patient's symptoms. Toradol for discomfort.
*Radiology
Radiology exam reviewed: radiology read reviewed (Lucency L2 larger than prior some cortical breakthrough with soft tissue expansion.)
*Pulse Oximetry
Patient hypoxic: no
*Critical Care Note
Total Time (30-74mins, 75-104mins- exclusive of procedures): Not Applicable
Data Reviewed
Review of Other/Old Records Reveals: Labs, Records and Testing
Update Note
Update Note:
Patient with a lesion at L2 with expansion. Possibly metastatic issue. Would more likely explain her pain but also has a lipase of 3000.
ED Attending Note
-
Portions of this chart may have been created with voice recognition software.� Occasional wrong word or��sound alike� substitutions may have occurred due to the inherent limitations of voice recognition software.
Discharge Plan
Departure
Patient Disposition: Admit
Date of Disposition: 01/15/24
Time of Disposition: 01:34
Presentation/result/management discussed w/ accepting MD/DO: Hospitalist
Discharge Problem:
Nontraumatic severe back pain, Suspect metastatic expansile lesion L2, Pancreatitis
Prescriptions:
No Action
cetirizine 10 mg Tablet
10 mg PO DAILY
losartan 25 mg Tablet
50 mg PO DAILY
sertraline 25 mg Tablet
50 mg PO DAILY
metoprolol succinate [Toprol XL] 25 mg Tablet Extended Release 24 Hr
25 mg PO BID
fluticasone propionate [Flonase] 50 mcg/actuation [place],Suspension
1 spray INTRANASAL DAILY
levetiracetam [Keppra] 500 mg tablet
500 mg PO BID Qty: 60 0RF
donepezil 5 mg Tablet
5 mg PO HS
amlodipine 5 mg Tablet
5 mg PO DAILY
acetaminophen 500 mg Tablet
1,000 mg PO Q6H PRN (Reason: pain)
dexamethasone 2 mg Tablet
2 mg PO BID
pantoprazole 40 mg Tablet,Delayed Release (Dr/Ec)
40 mg PO DAILY
Referrals:
Maury Mayfield MD [Family Provider] -
Interventions
Interventions:
*Risk Screen - Suicide Last Done: 01/14/24 21:17
*General Assessment Last Done: 01/14/24 21:17
*Neglect/Abuse Screening Last Done: 01/14/24 21:17
ED- Fall Risk Assessment Last Done: 01/14/24 21:28
*ED COVID-19 Vaccine History Last Done: 01/14/24 21:27
ED-Musculoskeletal Assessment Last Done: 01/14/24 21:28
Discharge Date and Time
Print Language: LATVIAN
[2024-01-14] MEDS: OMNIPAQUE 50 ML PO (22:51)
[2024-01-14] MEDS: TORADOL 15 MG IV (22:52)
[2024-01-14 22:54] LABS: % Basophils 0.1 % (0-2); % Eosinophils 0.1 % (0-6); % Immature Granulocytes 1.5 % (0-0.5); % Lymphocytes 7.6 % (20.5-51.1); % Monocytes 6.5 % (1.7-9.3); % Neutrophils 84.2 % (42.2-75.2); Absolute Immature Granulocytes 0.2 10^3/uL (0-0.05); Absolute Lymphocytes 1.2 10^3/uL (1.2-3.4); Absolute Neutrophils 13.4 10^3/uL (1.4-6.5); Hematocrit 45.2 % (37.0-47.0); Hemoglobin 15.3 g/dL (12.0-16.0); Mean Corp Hgb Conc. 33.8 g/dL (33.0-37.0); Mean Corpuscular Hgb 30.5 pg (27.0-31.0); Mean Corpuscular Volume 90.2 fL (81.0-99.0); Mean Platelet Volume 9.5 fL (7.4-10.4); Nucleated Red Blood Cells % 0 %; Platelet Count 191 10^3/uL (130-400); Red Blood Cell Count 5.01 10^6/uL (4.20-5.40); Red Cell Dist. Width 13.5 % (11.5-14.5)
[2024-01-14 23:00] VITALS: BP 181/81
[2024-01-14 23:11] LABS: ALT (SGPT) 219 U/L (0-35); AST (SGOT) 55 U/L (14-36); Albumin 3.5 g/dl (3.5-5.0); Alkaline Phosphatase 103 U/L (38-126); Blood Urea Nitrogen 32 mg/dl (7-17); Calcium 8.6 mg/dl (8.4-10.2); Carbon Dioxide 34 mmol/L (22-30); Chloride 100 mmol/L (98-107); Estimated Creatinine Clearance 52 ml/min; Glucose 94 mg/dl (70-99); Potassium 4.1 mmol/L (3.5-5.1); Sodium 140 mmol/L (135-145); Total Bilirubin 0.4 mg/dl (0.2-1.3); eGFR > 60.00
[2024-01-14 23:23] LABS: Lipase 3025 U/L (23-300)
[2024-01-14] MEDS: NSS 500 IV (23:54)
[2024-01-15] VITALS (11 sets, daily range): BP systolic 119–175; BP diastolic 56–97; BMI 18.2
--- NOTE | 2024-01-15 02:45 | HPS.HSE ---
Family Physician
-
Family Physician: Maury Mayfield
Chief Complaint
-
Back pain
History of Present Illness
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
department with episode of back pain.
When I saw the patient she was actually free of back pain. She reported that she came to the hospital because of severe back pain. No falls, no other trauma. Per staff at [facility] (dementia unit), she had just been standing with her friends she
she came back to them and complained of severe back pain. Denied any urinary symptoms. History is significantly limited due to the patient's mental status. No corroborating information available. Patient seems to be aware of her diagnosis of
malignancy but does not know any specified information and does not appear that she is under any treatment. She denies any abdominal pain. She denies any nausea or vomiting. She denies any urinary symptoms. When I saw her she was completely
comfortable and in no distress. Only next of kin on file is a sister will could not be reached.
In the emergency department she was afebrile, blood pressure was normal at 156/70 with a pulse in the 50s. She had a white count of 16,000 with normal hemoglobin and platelet counts. Electrolytes BUN/creatinine were mostly normal. She had mild
elevation in AST and ALT within normal bilirubin. Lipase was markedly elevated at over [address]
The [address] showed no fluid collection or definite fat stranding surrounding the pancreas. Lucency in the L2 vertebral body is chain saw mechanic than on prior with cortical breakthrough and some soft tissue expansion towards the right quadriceps muscle. Concern
for neoplastic metastatic process and likely etiology of back pain. Increased size of lytic lesion in the sacral radha compared to prior. Heterogeneity and additional lumbar vertebrae and the pelvis could also be metastasis. There is
diverticulosis without inflammation.
Medical History
Past Medical History
Past Medical History: Reports Cancer (Lungs Ca, brain mets), Dementia, GERD, HTN and Hypercholesterolemia
Past Surgical History: Reports Gynocological (Tubal ligation) and Tonsilectomy
Social History
Unable to obtain full social history at this time due to: Dementia
Alcohol: None
Drug: None
Personal: Single
Living: Assisted Living
Employment: Retired
Family History
Family History: Unable to Obtain
Allergies / Home Medications
Allergies reflects when Allergies were last updated in [employer].
Home Medications with original date entered in [employer]
Allergy/Medication List:
Allergies
Allergy/AdvReac Type Severity Reaction Status Date / Time
No Known Allergies Allergy Unverified 12/09/23 09:45
Home Medications
cetirizine 10 mg tablet 10 mg PO DAILY 07/14/23
fluticasone propionate 50 mcg/actuation nasal spray,suspension 1 spray intranasal DAILY 07/14/23
levetiracetam 500 mg tablet (Keppra) 500 mg PO BID #60 tabs 07/14/23
losartan 25 mg tablet 50 mg PO DAILY 07/14/23
metoprolol succinate 25 mg tablet,extended release 24 hr (Toprol XL) 25 mg PO BID 07/14/23
sertraline 25 mg tablet 50 mg PO DAILY 07/14/23
acetaminophen 500 mg tablet 1,000 mg PO Q6H PRN pain 01/14/24
amlodipine 5 mg tablet 5 mg PO DAILY 01/14/24
dexamethasone 2 mg tablet 2 mg PO BID 01/14/24
donepezil 5 mg tablet 5 mg PO HS 01/14/24
pantoprazole 40 mg tablet,delayed release 40 mg PO DAILY 01/14/24
Review of Systems
-
History Source: Patient
Constitutional: Reports No Symptoms
EENT: Reports No Symptoms
Respiratory: Reports No Symptoms
Cardiac: Reports No Symptoms
Abdomen/GI: Reports No Symptoms
: Reports No Symptoms
Musculoskeletal: Reports Other (Back pain)
Skin: Reports No Symptoms
Neurological: Reports No Symptoms
Endocrine: Reports No Symptoms
Hematologic/Lymphatic: Reports No Symptoms
Psych: Reports No Symptoms
Physical Exam
Vital Signs
Vital Signs
Temp Pulse Resp BP Pulse Ox
97.7 F 52 16 156/72 95
01/14/24 21:17 01/15/24 02:00 01/15/24 02:00 01/15/24 02:00 01/15/24 02:00
Physical Exam
General: Well Developed, Well Nourished, No Apparent Distress and Comfortable
HEENT: NormoCephalic, Anicteric, Moist mucous membranes and Atraumatic
Respiratory: Clear
Cardiac: S1/S2 and Regular Rhythm
Breast: Deferred by me
GI: Soft, Non Tender, Non Distended and Normal Bowel Sounds
Genito-urinary: Deferred by me
Musculoskeletal: No Clubbing, No Cyanosis and No Edema
Skin: Warm and Dry
Neuro: Alert and Oriented (oriented to person, place and year.)
Hematologic/Lymphatic: No Lymphadenopathy
Psych: Calm
Laboratory Results
-
01/14/24 22:45
01/14/24 22:45
Laboratory Results
Total Bilirubin 0.4 mg/dl (0.2-1.3) 01/14/24 22:45
AST 55 U/L (14-36) H 01/14/24 22:45
ALT 219 U/L (0-35) H 01/14/24 22:45
Alkaline Phosphatase 103 U/L (38-126) 01/14/24 22:45
Lipase 3025 U/L (23-300) H* 01/14/24 22:45
Data Reviewed
-
CT Scan: Report Reviewed by me
Old Records: Reviewed
Impression/Plan
-
IMPRESSION:
Patient with history of metastatic neoplasm including lung cancer and brain mets who presents to the emergency department with episode of back pain and was found to have incidentally elevated lipase over 3001. CT of the abdomen and pelvis revealed
worsening metastatic disease involving the L2 vertebral body with concern on that is the likely etiology of the back pain. Appears to have worsening lytic lesions in the sacral radha compared to prior as well. The CT scan shows no significant
abnormalities in the pancreatic and periampullary region. No fluid collection or definite fat stranding surrounding the pancreas.
1. Back pain - Currently resolved. Appears to be on dexamethasone taper and received toradol in ED. No complaint of back pain. The etiology of the pain may be related to the metastatic lesion seen in L2 and other bony mets. Unfortunately I'm
unable to ascertain the history of her malignancy, progression and future plans given her dementia.
- admit to med/surg
- pain control
- ambulate and pt
- obtain records from Dr. Maury Mayfield (pmd, ) in am
- if patient has outpatient oncologist or a terminal plan per her PMD or family she may be discharged from the [facility]
2. Elevated lipase - Pancreatitis by labs but not by history, exam or imaging. No stones in GB, no biliary or pancreatic ductal anomaly. Mild LFT anomalies without elevated bilirubin. Not sure if on chemo. Her routine meds does nto appear
contributory.
- repeat lipase and lfts in am
- check calcium, lipid panel
- GI consultation for possible mri/mrcp
- no pain, nausea or vomiting. Will advance to clear liquid diet
3. HTN
- continue norvasc and losartan
4. Brain mets (some evidence of ongoing management but oncologist is not known by me currently)
- keppra for sz ppx
- takes dexamethasone 2mg bid on 01/14 then 2mg daily from 01/15 till 01/24
- Unclear whether the patient is on any chemotherapy/XRT
- contacted [employer] and directed to contact their director of valuation Citlali Medley ([phone]) in am
DVT PPX - lovenox sq
Code status - full code presumed pending clarity. (patient unclear and POA unavailable)
[2024-01-15] MEDS: PROTONIX 40 MG PO (08:09)
[2024-01-15] MEDS: KEPPRA 500 MG PO ×2 (08:09→20:14)
[2024-01-15] MEDS: ZYRTEC 10 MG PO (08:09)
[2024-01-15] MEDS: ZOLOFT 50 MG PO (08:09)
[2024-01-15] MEDS: NORVASC 5 MG PO (08:09)
[2024-01-15] MEDS: TOPROL XL 25 MG PO ×2 (08:10→20:14)
[2024-01-15] MEDS: COZAAR 50 MG PO (08:10)
[2024-01-15] MEDS: DECADRON 2 MG PO ×2 (08:10→20:14)
--- NOTE | 2024-01-15 12:09 | CON.GI ---
Consultation
-
Date/Time Consultation Requested: 01/15/2024 607
Date/Time Consultation Performed: 01/14/25 1200
Requesting Provider: Dr Sandoval
Performing Provider: Dr Fowler
Reason for Consultation: elevated lipase
Medical History
Chief Complaint / HPI
Chief Complaint: back pain
History of Present Illness:
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 GI consulted as lipase was over 3000. She denies abd pain or prior h/o pancreatic disease. Does not
drink ETOH beverages. Denies odynophagia, dysphagia, N/V, diarrhea or constipation. Appetite was good and per friends had chicken parm yesterday. She is not on any new meds but does get an injection every 4wks through her oncologist- name is not
known. Denies CP or SOB.
Past Medical History
Past Medical History: Other (carcinoid lung ca with brain mets, dementia, GERD, HTN HL)
Past Surgical History: Other (tubal ligation tonsillectomy)
Social History
Tobacco: Non-Smoker
Alcohol: None
Drug: None
Living: Assisted Living
Employment: Retired
Family History
Family History: Unable to Obtain
Allergies / Home Medications
Allergy/AdvReac Type Severity Reaction Status Date / Time
No Known Allergies Allergy Unverified 12/09/23 09:45
�Medication �Instructions �Recorded
cetirizine 10 mg tablet 10 mg PO DAILY 07/14/23
fluticasone propionate 50 1 spray intranasal DAILY 07/14/23
mcg/actuation nasal
spray,suspension
levetiracetam 500 mg tablet 500 mg PO BID #60 tabs 07/14/23
(Keppra)
losartan 25 mg tablet 50 mg PO DAILY 07/14/23
metoprolol succinate 25 mg 25 mg PO BID 07/14/23
tablet,extended release 24 hr
(Toprol XL)
sertraline 25 mg tablet 50 mg PO DAILY 07/14/23
acetaminophen 500 mg tablet 1,000 mg PO Q6H PRN pain 01/14/24
amlodipine 5 mg tablet 5 mg PO DAILY 01/14/24
dexamethasone 2 mg tablet 2 mg PO DAILY 01/14/24
donepezil 5 mg tablet 5 mg PO HS 01/14/24
pantoprazole 40 mg tablet,delayed 40 mg PO DAILY 01/14/24
release
dexamethasone 2 mg tablet See Rx Instructions .Route .COMPLEX 01/15/24
Review of Systems
-
Unable to obtain full review of systems at this time due to: Dementia
Vital Signs
Temp Pulse Resp BP Pulse Ox
97.4 F 62 20 168/95 97
01/15/24 07:15 01/15/24 07:15 01/15/24 07:15 01/15/24 07:15 01/15/24 07:15
Physical Exam
Exam
GEN: No acute distress, conversant, pleasant forgetful
HEENT: anicteric, extraocular movements intact, clear oropharynx without exudates
GI: soft, non-distended, not tender to palpation, normal active bowel sounds, no hepatosplenomegaly
EXT: warm, well perfused, trace edema bilaterally
NEURO: AAOx3, non-focal
Results
WBC 16.0 10^3/uL (4.8-10.8) H 01/14/24 22:45
Hgb 15.3 g/dL (12.0-16.0) 01/14/24 22:45
Hct 45.2 % (37.0-47.0) 01/14/24 22:45
MCV 90.2 fL (81.0-99.0) 01/14/24 22:45
Plt Count 191 10^3/uL (130-400) 01/14/24 22:45
Absolute Neuts (auto) 13.4 10^3/uL (1.4-6.5) H 01/14/24 22:45
Sodium 140 mmol/L (135-145) 01/14/24 22:45
Potassium 4.1 mmol/L (3.5-5.1) 01/14/24 22:45
Chloride 100 mmol/L (98-107) 01/14/24 22:45
Carbon Dioxide 34 mmol/L (22-30) H 01/14/24 22:45
BUN 32 mg/dl (7-17) H 01/14/24 22:45
Creatinine 0.6 mg/dL (0.6-1.0) 01/14/24 22:45
Calcium 8.6 mg/dl (8.4-10.2) 01/14/24 22:45
Total Bilirubin 0.4 mg/dl (0.2-1.3) 01/14/24 22:45
AST 55 U/L (14-36) H 01/14/24 22:45
ALT 219 U/L (0-35) H 01/14/24 22:45
Alkaline Phosphatase 103 U/L (38-126) 01/14/24 22:45
Lipase 3025 U/L (23-300) H* 01/14/24 22:45
Diagnostic Image Results:
CTAP IV contrast 1. No significant acute abnormality identified in the abdomen or pelvis, as described above.
2. Slight interval enlargement of osseous lesions within L2 and the upper sacrum, suspicious for progression of metastases.
Prior GI Procedures:
2013 EGD: Dr Cerna gastritis. recall 5yrs
Colonoscopy: not known if ever done.
Assessment / Plan
-
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 GI consulted for elevated lipase and LFTs. She is poor historian given dementia
Impression
- Chemical pancreatitis and elevated LFTs
Suspect passed gallstone
Other consideration is drug induced--she is on injection monthly through oncologist that she does not know name
- GERD
- Back pain now resolved
- Dementia
- Metastatic carcinoid lung ca
Recommendations
- Given resolution of back pain adv to low fat diet
- Serial LFTs if rises consider MRCP/MRI tomorrow. If normalizes and given no gallstones priscilla on CT anticipate d/c tomorrow
- Friends updated bedside
- Check IGG4 and lipid panel
- C/w PPI
Will follow with
Data Reviewed
-
CT Scan: Report Reviewed by me
-
-
Thank you for consultation and allowing me to participate in the patient's care. Please call the senior education specialist GI physician during the after hours with any questions or concerns.
--- NOTE | 2024-01-15 13:32 | W.PN.UPDATE ---
Addendum entered and electronically signed by Sea Carmona MD 01/15/24 16:23:
AVOID benzodiazepines
Original Note:
Update Note
Progress Note Update
After speaking to family, friends, agreed to hold off on discharge and monitor LFTs for additional day to ensure improvement in LFTs. Back pain has resolved, abdominal exam benign. Suspect passage of gallstone. Plan�follow LFTs and if continue to
rise, can get MRCP, MRI at that time. GI consulted. Requested records from outpatient primary care office.
--- NOTE | 2024-01-15 15:34 | CM ---
Alert awake confused patient who lives in memory care at [facility]. She is assisted in all activities of daily living.She uses a cane.She has had [facility] in past.Her Her friend Anna was visiting and provided information.Requested PT OT order
for pt.LM with MARITZA Vargas at [facility] regarding pts return . No call back
Pharmacy [facility]
PCP Maury Greenwood
PLAN Return to [facility] Will need PT OT evals
[2024-01-15] MEDS: LOVENOX 30 MG SC (17:11)
[2024-01-15] MEDS: ARICEPT 5 MG PO (20:15)
[2024-01-16 03:37] VITALS: BP 141/70
[2024-01-16 06:31] LABS: Hematocrit 41.9 % (37.0-47.0); Hemoglobin 14.1 g/dL (12.0-16.0); Mean Corp Hgb Conc. 33.7 g/dL (33.0-37.0); Mean Corpuscular Hgb 30.8 pg (27.0-31.0); Mean Corpuscular Volume 91.5 fL (81.0-99.0); Mean Platelet Volume 9.4 fL (7.4-10.4); Platelet Count 178 10^3/uL (130-400); Red Blood Cell Count 4.58 10^6/uL (4.20-5.40); Red Cell Dist. Width 13.2 % (11.5-14.5); White Blood Cell Count 13.4 10^3/uL (4.8-10.8)
[2024-01-16 06:57] LABS: ALT (SGPT) 139 U/L (0-35); AST (SGOT) 38 U/L (14-36); Albumin 2.9 g/dl (3.5-5.0); Alkaline Phosphatase 92 U/L (38-126); Blood Urea Nitrogen 23 mg/dl (7-17); Calcium 8.2 mg/dl (8.4-10.2); Carbon Dioxide 35 mmol/L (22-30); Chloride 100 mmol/L (98-107); Direct Bilirubin 0.1 mg/dl (0.0-0.4); Estimated Creatinine Clearance 48 ml/min; Glucose 123 mg/dl (70-99); HDL Cholesterol 108 mg/dl; LDL Cholesterol, Calculated 112 mg/dl; Lipase 325 U/L (23-300); Potassium 4.2 mmol/L (3.5-5.1); Sodium 139 mmol/L (135-145); Total Bilirubin 0.9 mg/dl (0.2-1.3); Total Cholesterol 239 mg/dl (50-199); Total Protein 5.3 g/dl (6.3-8.2); Triglyceride 97 mg/dl (10-149); Very Low Density Lipoprotein 19 mg/dl (0-30); eGFR > 60.00
[2024-01-16 08:17] VITALS: BP 133/93
[2024-01-16] MEDS: TOPROL XL 25 MG PO (08:26)
[2024-01-16] MEDS: PROTONIX 40 MG PO (08:26)
[2024-01-16] MEDS: NORVASC 5 MG PO (08:26)
[2024-01-16] MEDS: ZYRTEC 10 MG PO (08:26)
[2024-01-16] MEDS: ZOLOFT 50 MG PO (08:27)
[2024-01-16] MEDS: KEPPRA 500 MG PO (08:27)
[2024-01-16] MEDS: COZAAR 50 MG PO (08:27)
[2024-01-16] MEDS: DECADRON 2 MG PO (08:28)
--- NOTE | 2024-01-16 10:27 | CM ---
Patient for discharge back to [facility]. CM spoke with Johnna at [facility] and she requested report to be called to [phone] and . CM spoke with Anna hinds patient friend and she will transport patient to
personal care. Anna will be here soon after 12 and patient nursing aware. 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 Nursing requested [facility] referral and CM will send referral. CM will continue
to follow for discharge planning needs.
Plan; return to personal care see above phone numbers.
--- NOTE | 2024-01-16 11:37 | W.PN.HOSP.TC ---
Today's Communication/Plan
-
dc
Assessment / Plan
Assessment / Plan
83yo F from memory care unit, with PMHx of dementia and metastatic carcinoid tumor came with sudden abd pain radiating to back, found pancreatitis, most likely as per GI due to passed gallstone vs drug induced due to monthly injections done by
oncologist. LFT and lipase improved, tolerated diet well. CT abd showed no additional gallstones. Leukocytosis improved without Abx. Calcium WNL, no significant hypertrigliceridemia.
A/P:
#Transaminitis
#Acute Pancreattiis
most likely 2/2 passed stone
LFT improving
GI followed - no ambrose for additional studies.
Advanced diet
#Diverticulosis
High fiber diet
#Carcinoid tumor with known metastasis in brain, R sacrum and L2
Slightly enlarged as compared with 2022
Cont established Oncology follow up
COnt Keppra
#Mild leukocytosis
most likely 2/2 home doses of Dexa
No signs of infection such as fever, RUQ pain, gall bladder wall distension
#Dementia, unspecified
#Anxiety
#Essential HTN
cont home meds
DVT ppx lovenox
Full code
I have spent at least 38min reviewing chart, test results, communication with consultants and direct patient care
Anticipated Discharge: Today
Subjective/Interval History
-
Date of Service: January 16, 2024
Objective Data
-
Labs:
Laboratory Results
01/16/24
05:50
WBC 13.4 H
Hgb 14.1
Hct 41.9
Plt Count 178
Sodium 139
Potassium 4.2
Chloride 100
Carbon Dioxide 35 H
BUN 23 H
Creatinine 0.6
Glucose 123 H
Calcium 8.2 L
Total Bilirubin 0.9
AST 38 H
ALT 139 H
Alkaline Phosphatase 92
Vital Signs:
Vital Signs
Temp Pulse Resp BP Pulse Ox
97.7 F 83 18 133/93 96
01/16/24 08:17 01/16/24 08:17 01/16/24 08:17 01/16/24 08:17 01/16/24 08:17
I&O
01/15/24 01/16/24 01/17/24
06:59 06:59 06:59
Intake Total 920 / 920
Balance 920 / 920
Review of Systems
-
Unable to obtain full review of systems at this time due to: Dementia
History Source: Patient
Physical Exam
-
Respiratory: Clear to Auscultation
Cardiac: Regular Rhythm
GI: Soft, Nontender and Nondistended
Neuro: Awake, Alert and Oriented (to herself)
Psych: Apparent Dementia
[2024-01-16 12:12] VITALS: BP 95/65
--- NOTE | 2024-01-16 12:12 | W.DCSUMMARY ---
Addendum entered and electronically signed by Jakob Pineda MD 01/16/24 15:16:
#Underweight with BMI 18.2
Advise to increase calorie intake
Original Note:
Discharge Summary
Discharge Data
Date of Admission: 01/15/24
Date of Discharge: 01/16/24
-
Pending Results: Yes
Additional Pending Results:
IGG4
Hospital Course
83yo F from memory care unit, with PMHx of dementia and metastatic carcinoid tumor came with sudden abd pain radiating to back, found pancreatitis, most likely as per GI due to passed gallstone vs drug induced due to monthly injections done by
oncologist. LFT and lipase improved, tolerated diet well. CT abd showed no additional gallstones. Leukocytosis improved without Abx. Calcium WNL, no significant hypertrigliceridemia. Results of CT discuassed with sister and she will follow up with
Oncologist in [place] due to increasing size of the sacral metastatic lesion. Medically stable for D/C and sister verbalized understanding of the instructions
I have spent at least 38min reviewing chart, test results, communication with consultants and direct patient care
Patient was managed for:
#Transaminitis
#Acute Pancreatitis
#Diverticulosis
#Carcinoid tumor with known metastasis in brain, R sacrum and L2
#Mild leukocytosis
#Dementia, unspecified
#Anxiety
#Essential HTN
Discharge Plan
-
Patient Disposition: Other
Discharge Diagnosis/Procedures: Memory care
Diet: Low Fat
Activity: As tolerated
Referrals:
Maury Mayfield MD [Family Provider] -
Prescriptions:
Continued
cetirizine 10 mg Tablet
10 mg PO DAILY
losartan 25 mg Tablet
50 mg PO DAILY
sertraline 25 mg Tablet
50 mg PO DAILY
metoprolol succinate [Toprol XL] 25 mg Tablet Extended Release 24 Hr
25 mg PO BID
fluticasone propionate 50 mcg/actuation [place],Suspension
1 spray INTRANASAL DAILY
levetiracetam [Keppra] 500 mg tablet
500 mg PO BID Qty: 60 0RF
donepezil 5 mg Tablet
5 mg PO HS
amlodipine 5 mg Tablet
5 mg PO DAILY
acetaminophen 500 mg Tablet
1,000 mg PO Q6H PRN (Reason: pain)
dexamethasone 2 mg Tablet
2 mg PO DAILY
Rx Instructions:
until 01/25/2024
pantoprazole 40 mg Tablet,Delayed Release (Dr/Ec)
40 mg PO DAILY
dexamethasone 2 mg Tablet
See Rx Instructions .ROUTE .COMPLEX
Rx Instructions:
2 mg orally. q2 days until 02/04/2024
Discharge Orders:
Discharge Patient (As Directed); Ordered 01/16/24
Ordered By: aJkob Pineda
Discharge Date and Time
Print Language: SPANISH
--- NOTE | 2024-01-16 14:40 | PN.CDI ---
CDI
- -
CDI:
Physician Documentation Request
Admit Date: 01/15/24 03:34
Dear Doctor Edwin,
Please review the following and provide your response in the progress notes.
Clinical Indicators:
Height: 5'
Weight: 93lbs
BMI: 18.2
If possible, please provide an associated diagnosis related to the abnormal BMI, such as:
Underweight
Cachectic
Other (please specify)
Use of terms such as suspected, likely, concern for, or probable (associated with a specific diagnosis that is being evaluated, monitored, or treated as if it exists) are acceptable and can be coded in the inpatient setting, when documented at the
time of discharge.
Thank you,
Violeta Cruz RN
CDI Specialist
Please use your independent medical judgment in providing your response.
[2024-01-18 03:50] LABS: IgG Subclass 4 8 mg/dL (1-123)
== END 2024-01-16 13:31 | disposition home health service (06) ==
LOC: 4 EAST ACU 03:34
PROVIDERS: Internal Medicine; ADMITTING PHYSICIAN Internal Medicine; ATTENDING PHYSICIAN Internal Medicine; CONSULT PHYSICIAN Internal Medicine Gastroenterology; EMERGENCY PHYSICIAN Emergency Medicine; FAMILY PHYSICIAN Family Medicine
DX: K85.90 Acute pancreatitis without necrosis or infection, unspecified (principal); M54.50 Low back pain, unspecified; J44.9 Chronic obstructive pulmonary disease, unspecified; I10 Essential (primary) hypertension; G30.9 Alzheimer's disease, unspecified; R74.8 Abnormal levels of other serum enzymes; R63.6 Underweight; F32.A Depression, unspecified; F02.83 Dementia in other diseases classified elsewhere, unspecified severity, with mood disturbance; F02.84 Dementia in other diseases classified elsewhere, unspecified severity, with anxiety; K21.9 Gastro-esophageal reflux disease without esophagitis; R79.89 Other specified abnormal findings of blood chemistry; M53.3 Sacrococcygeal disorders, not elsewhere classified; R74.01 Elevation of levels of liver transaminase levels; K57.30 Diverticulosis of large intestine without perforation or abscess without bleeding; C79.51 Secondary malignant neoplasm of bone; C79.31 Secondary malignant neoplasm of brain; Z87.891 Personal history of nicotine dependence; Z85.118 Personal history of other malignant neoplasm of bronchus and lung; Z79.52 Long term (current) use of systemic steroids; Z68.1 Body mass index [BMI] 19.9 or less, adult
CPT/HCPCS: 74177; 80053; 80061; 82248; 82787; 83690; 85025; 85027; 87070; 87147; 96374; 99285; G0378; Q9967

== ENCOUNTER 2024-01-24 04:15 | Inpatient (IN) | payer OTHER, SELFPAY ==
[2024-01-23 21:08] VITALS: BMI 19.6
[2024-01-23 21:10] VITALS: BP 156/80
--- NOTE | 2024-01-23 21:10 | ED.GENMED ---
ED Provider Triage
<Fly Moreau PA-C - Last Filed: 01/23/24 21:12>
-
Patient seen by provider in Triage?: Seen in Triage
Attestation: A medical screening examination has been initiated by a qualified medical provider. Based on the assessment performed at this time, it has been determined that an emergent medical condition may exist and the patient has been informed
that further medical evaluation and possible additional diagnostic testing may be needed.
HPI: Patient presenting the ER via EMS from [facility] for evaluation of right-sided lower back pain. States she did not fall but does have a history of dementia. History is otherwise somewhat limited.
GENERAL: Alert , appears uncomfortable
EYE: No visual abnormalities.
NECK: Trachea midline
ENT: No visible abnormalities.
LUNGS: No acute respiratory distress
NEUROLOGICAL: Alert and oriented
SKIN: Skin intact. No visible changes.
MUSCULOSKELETAL: Moving extremities normally
PSYCH: Normal and appropriate interaction.
This is a medical evaluation conducted in person to initiate diagnostic evaluation and provide initial therapeutics. Please see further documentation by the treating clinician.
History of Present Illness
<Fly Moreau PA-C - Last Filed: 01/23/24 21:12>
General
Chief Complaint: Back Pain
Time Seen by Provider: 01/23/24 23:28
<Betzaida Marcial DO - Last Filed: 01/24/24 07:19>
General
Source: patient, family (Family friend who is at bedside.) and previous hospital records (Recent hospitalization January 14 to January 15 for very similar complaints/presentation. Found to have acute pancreatitis thought to be related to recent
gallstone passage versus chemotherapy related.)
Exam Limitations: dementia
Nursing documentation reviewed up to this point in time: agreed with
History of Present Illness
History of Present Illness:
This is an 83-year-old woman who has history of dementia, resides in a memory care facility. 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
She follows with oncologist at [facility] and was recently resumed on monthly chemotherapy injection 1 month ago. She is due for her second infusion January 30.
She was acutely hospitalized overnight here last week when she presented with similar complaints of acute right-sided atraumatic back pain. Found to have elevated LFTs and elevated lipase as well as mildly elevated white blood cell count. Pain
promptly resolved without return and LFTs normalized. She was evaluated by GI who thought that patient may had passed a gallstone versus mild pancreatitis related to chemotherapy.
She had been feeling well since discharge January 15 and had unremarkable follow-up with her primary care physician this morning.
This evening however she returns to the ED via EMS with complaints of somewhat abrupt onset of severe right-sided back pain, similar complaint noted last week. She denies fall or injury. Back pain was mildly improved with lying supine on the floor.
Upon my initial evaluation she now notes some right upper quadrant pain as well as right upper back/scapular pain. She denies nausea nor vomiting, no diarrhea or constipation. No dysuria and urgency and or hematuria.
She has not had a fever nor chills.
Past History
<Fly Moreau PA-C - Last Filed: 01/23/24 21:12>
Past History
ED Past Medical History: Cancer (Lung), COPD and HTN
Social History
Tobacco: Former smoker
<DO Sylvia Jones Last Filed: 01/24/24 07:19>
Past History
ED Past Medical History: Cancer (Malignant carcinoid of lung with mets to brain, sacrum, lumbar spine), Psychiatric (Depression, anxiety) and Other (Dementia)
Social History
Personal:
Living: assisted living (Memory care unit)
Family History
Family History: Other (Noncontributory)
Phy Exam
<Betzaida Marcial DO - Last Filed: 01/24/24 07:19>
Physical Exam
Physical Exam:
GENERAL: 83-year-old woman appears her stated age, awake and alert, mildly anxious, mildly confused, cooperative, overall appears in no acute distress. Family friend is accompanying.
EYE: anicteric
NECK: Supple, nontender, no meningismus, no significant adenopathy.
ENT: oral mucosa is moist. No rhinorrhea.
CARDIAC: Regular rate and rhythm. no murmur.
LUNGS: Clear breath sounds bilaterally, no acute respiratory distress, no wheezes/rales/rhonchi
ABDOMEN: Soft, nondistended, mild tenderness right upper quadrant as well as mild tenderness epigastric region, no r/g, no cvat. normoactive BS.
BACK: No midline bony tenderness. Mild tenderness right lower lumbar region. Straight leg raising is negative bilaterally.
NEUROLOGICAL: Alert and oriented x2, no focal neuro deficits. Gait is steady.
SKIN: Warm and dry, normal color, skin intact. No rash.
MUSCULOSKELETAL: No C/C/E. peripheral pulses are full and equal b/l. No palpable tenderness.
PSYCH: Mildly anxious. Mildly confused. Easily communicative and cooperative.
Course
<Fly Moreau PA-C - Last Filed: 01/23/24 21:12>
Orders/Labs/Results
Orders:
Orders
01/23/24 21:11
Urinalysis Reflex To Culture Urgent
Date Specimen was Collected: 01/24/24
Time Specimen was Collected: 01:37
CR Lumbar Spine Comp Min 4 Vw* Urgent
Comment:
Reason For Exam: right lower back pain
01/23/24 21:19
Complete Blood Count/With Diff Urgent
Comprehensive Metabolic Panel Urgent
Erythrocyte Sed Rate Urgent
Comment: ADD ON
Lipase Urgent
01/23/24 23:30
Add On- LAB Urgent
Tests Added?: LFT's, lipase
01/23/24 23:53
EKG- Treatment ONCE
Troponin I Urgent
0.9% Sodium Chloride 1000 ml [Nss] 1,000 ml IV BOLUS
Ketorolac [Toradol] 15 mg IV NOW STA
01/23/24 23:54
Lactic Acid Urgent
01/24/24 00:00
US Abdomen Complete/Upper Urgent
Reason For Exam: acute RUQ, R flank pain
01/24/24 00:45
Add On- LAB Urgent
Tests Added?: sed rate
01/24/24 02:08
CT Abd/pelvis W Iv Cont Urgent
Comment:
Reason For Exam: acute R back pain, RUQ pain, elevated LFT's
01/24/24 04:06
Admit/Transfer Patient As Directed
Co-Sign Provider:
Level of Care: Inpatient admission
Assign to:: Telemetry
Physician / Group: Naveed
Diagnosis: Pancreatitis
Reason for Telemetry: Chest Pain syndromes
Date to Stop Telemetry: 01/26/24
Time to Stop Telemetry: 11:00
Reason for Hospitalization: Pancreatitis
Expected length of stay greater than two midnights?: Yes
ELOS- Estimated Length of Stay in days: 3
I certify the patient meets the requirements for IP care: Yes
PRN Pain Medication Management As Directed
May give lesser potent ordered pain med per pt: Yes
preference::
Protocol:: Medication orders for pain may be administered in a
manner that supports deferring to patient preference
when the pt is:
- Requesting an ordered lesser potent pain medication.
Least to most potent pain medications are defined
as: acetaminophen < NSAID < tramadol < opioids
(morphine, oxycodone, hydromorphone).
- Requesting a lesser dose of the same medication IF
ORDERED.
- Requesting a less intrusive route of administration
if both routes are prescribed by the provider (PO <
IV).
01/24/24 04:08
Code Status As Directed
Resuscitation Status: Full Code
01/24/24 05:12
Troponin I Q6H
Acetaminophen [Tylenol] 650 mg PO Q4HPRN PRN
Dexamethasone [Decadron] 2 mg PO Q48H
HYDROmorphone [Dilaudid] 0.5 mg IV Q4HPRN PRN
Lactated Ringers [Lr] 1,000 ml IV 100 mls/hr
Ondansetron Injectable [Zofran] 4 mg IV Q6HPRN PRN
01/24/24 05:12
Consult Notification Routine
Specialty to Notify: Gastroenterology
GASTROINTESTINAL CONSULT Routine
Consulting Provider: Teofilo Mei
Was physician already notified: No
Reason for consult: Pancreatitis
Activity As Directed
Activity Level: Ambulate
With Assistance
EKG with chest pain [ECG as needed] As Directed
ECG as needed for:: Chest Pain
I/O [Intake/ Output] As Directed
Frequency: Per unit guidelines
Pneumatic Compression Sleeves As Directed
Type: Knee high
Vital Signs As Directed
Frequency: Per unit guidelines
Oxygen Therapy [O2 Therapy] [RESP] Routine
Titrate/Wean O2 to maintain O2 sat greater than (%): 94
Ot Eval And Treat Routine
PT Consult [Pt Eval And Treat] Routine
Activity Level: Ambulate
With Assistance
DX Deep Vein Thrombosis Video Routine
01/24/24 06:00
EKG [Electrocardiogram (*1)] IN AM
Reason for Study: Chest Pain
NPO
Allow oral meds: Yes
Allow clear liquids: Sips of Clears
Basic Metabolic Panel IN AM
Complete Blood Count/No Diff IN AM
LFT [Aymrq-Lmxp-Psarprs] IN AM
MRI Abdomen [MR Abdomen W/o & W Contrast] IN AM
Comment: MRCP
Reason For Exam: Abd Pain / pancreatitis
Recent pill cam endoscopy?: No
01/24/24 08:00
Amlodipine [Norvasc] 5 mg PO DAILY
Aspirin Chewable [Low Strength Aspirin] 81 mg PO DAILY
Dexamethasone [Decadron] 2 mg PO DAILY
Levetiracetam [Keppra] 500 mg PO BID
Losartan [Cozaar] 50 mg PO DAILY
Metoprolol Xl [Toprol Xl] 25 mg PO BID
Pantoprazole [Protonix] 40 mg PO DAILY
Sertraline HCl [Zoloft] 50 mg PO DAILY
01/24/24 11:12
Troponin I Q6H
01/24/24 17:12
Troponin I Q6H
01/24/24 22:00
Donepezil [Aricept] 5 mg PO HS
01/26/24 11:00
DC Protocol for Telemetry ONCE
Abnormal Lab Results
01/23/24 01/24/24
21:19 00:30
WBC 19.0 H 10^3/uL
(4.8-10.8)
MCH 31.3 H pg
(27.0-31.0)
Abs Immat Gran (auto) 0.5 H 10^3/uL
(0-0.05)
Absolute Neuts (auto) 16.3 H 10^3/uL
(1.4-6.5)
Absolute Lymphs (auto) 1.1 L 10^3/uL
(1.2-3.4)
Absolute Monos (auto) 1.1 H 10^3/uL
(0.1-0.6)
Immature Gran % 2.4 H %
(0-0.5)
Neutrophils % 85.7 H %
(42.2-75.2)
Lymphocytes % 6.0 L %
(20.5-51.1)
Potassium 3.4 L mmol/L
(3.5-5.1)
Carbon Dioxide 32 H mmol/L
(22-30)
BUN 26 H mg/dl
(7-17)
Glucose 169 H mg/dl
(70-99)
AST 143 H U/L
(14-36)
ALT 662 H* U/L
(0-35)
Alkaline Phosphatase 194 H U/L
(38-126)
Troponin I 0.184 H* ng/ml
Total Protein 5.8 L g/dl
(6.3-8.2)
Albumin 3.4 L g/dl
(3.5-5.0)
Lipase 1627 H* U/L
(23-300)
01/23/24 21:19
01/23/24 21:19
Vital Signs
Initial and Last Documented VS:
Initial Vital Signs
Temp Pulse Resp BP Pulse Ox
97.8 F 76 17 156/80 97
01/23/24 21:10 01/23/24 21:10 01/23/24 21:10 01/23/24 21:10 01/23/24 21:10
Last Documented Vital Signs
Temp Pulse Resp BP Pulse Ox
98.0 F 61 16 163/91 95
01/24/24 05:44 01/24/24 00:19 01/24/24 00:19 01/24/24 04:04 01/24/24 04:15
<Betzaida aMrcial, DO - Last Filed: 01/24/24 07:19>
Orders/Labs/Results
Orders:
Orders
01/23/24 21:11
Urinalysis Reflex To Culture Urgent
Date Specimen was Collected: 01/24/24
Time Specimen was Collected: 01:37
CR Lumbar Spine Comp Min 4 Vw* Urgent
Comment:
Reason For Exam: right lower back pain
01/23/24 21:19
Complete Blood Count/With Diff Urgent
Comprehensive Metabolic Panel Urgent
Erythrocyte Sed Rate Urgent
Comment: ADD ON
Lipase Urgent
01/23/24 23:30
Add On- LAB Urgent
Tests Added?: LFT's, lipase
01/23/24 23:53
EKG- Treatment ONCE
Troponin I Urgent
0.9% Sodium Chloride 1000 ml [Nss] 1,000 ml IV BOLUS
Ketorolac [Toradol] 15 mg IV NOW STA
01/23/24 23:54
Lactic Acid Urgent
01/24/24 00:00
US Abdomen Complete/Upper Urgent
Reason For Exam: acute RUQ, R flank pain
01/24/24 00:45
Add On- LAB Urgent
Tests Added?: sed rate
01/24/24 02:08
CT Abd/pelvis W Iv Cont Urgent
Comment:
Reason For Exam: acute R back pain, RUQ pain, elevated LFT's
01/24/24 04:06
Admit/Transfer Patient As Directed
Co-Sign Provider:
Level of Care: Inpatient admission
Assign to:: Telemetry
Physician / Group: Naveed
Diagnosis: Pancreatitis
Reason for Telemetry: Chest Pain syndromes
Date to Stop Telemetry: 01/26/24
Time to Stop Telemetry: 11:00
Reason for Hospitalization: Pancreatitis
Expected length of stay greater than two midnights?: Yes
ELOS- Estimated Length of Stay in days: 3
I certify the patient meets the requirements for IP care: Yes
PRN Pain Medication Management As Directed
May give lesser potent ordered pain med per pt: Yes
preference::
Protocol:: Medication orders for pain may be administered in a
manner that supports deferring to patient preference
when the pt is:
- Requesting an ordered lesser potent pain medication.
Least to most potent pain medications are defined
as: acetaminophen < NSAID < tramadol < opioids
(morphine, oxycodone, hydromorphone).
- Requesting a lesser dose of the same medication IF
ORDERED.
- Requesting a less intrusive route of administration
if both routes are prescribed by the provider (PO <
IV).
01/24/24 04:08
Code Status As Directed
Resuscitation Status: Full Code
01/24/24 05:12
Troponin I Q6H
Acetaminophen [Tylenol] 650 mg PO Q4HPRN PRN
Dexamethasone [Decadron] 2 mg PO Q48H
HYDROmorphone [Dilaudid] 0.5 mg IV Q4HPRN PRN
Lactated Ringers [Lr] 1,000 ml IV 100 mls/hr
Ondansetron Injectable [Zofran] 4 mg IV Q6HPRN PRN
01/24/24 05:12
Consult Notification Routine
Specialty to Notify: Gastroenterology
GASTROINTESTINAL CONSULT Routine
Consulting Provider: Teofilo Mei
Was physician already notified: No
Reason for consult: Pancreatitis
Activity As Directed
Activity Level: Ambulate
With Assistance
EKG with chest pain [ECG as needed] As Directed
ECG as needed for:: Chest Pain
I/O [Intake/ Output] As Directed
Frequency: Per unit guidelines
Pneumatic Compression Sleeves As Directed
Type: Knee high
Vital Signs As Directed
Frequency: Per unit guidelines
Oxygen Therapy [O2 Therapy] [RESP] Routine
Titrate/Wean O2 to maintain O2 sat greater than (%): 94
Ot Eval And Treat Routine
PT Consult [Pt Eval And Treat] Routine
Activity Level: Ambulate
With Assistance
DX Deep Vein Thrombosis Video Routine
01/24/24 06:00
EKG [Electrocardiogram (*1)] IN AM
Reason for Study: Chest Pain
NPO
Allow oral meds: Yes
Allow clear liquids: Sips of Clears
Basic Metabolic Panel IN AM
Complete Blood Count/No Diff IN AM
LFT [Wmsli-Vmcl-Vtmpnyn] IN AM
MRI Abdomen [MR Abdomen W/o & W Contrast] IN AM
Comment: MRCP
Reason For Exam: Abd Pain / pancreatitis
Recent pill cam endoscopy?: No
01/24/24 08:00
Amlodipine [Norvasc] 5 mg PO DAILY
Aspirin Chewable [Low Strength Aspirin] 81 mg PO DAILY
Dexamethasone [Decadron] 2 mg PO DAILY
Levetiracetam [Keppra] 500 mg PO BID
Losartan [Cozaar] 50 mg PO DAILY
Metoprolol Xl [Toprol Xl] 25 mg PO BID
Pantoprazole [Protonix] 40 mg PO DAILY
Sertraline HCl [Zoloft] 50 mg PO DAILY
01/24/24 11:12
Troponin I Q6H
01/24/24 17:12
Troponin I Q6H
01/24/24 22:00
Donepezil [Aricept] 5 mg PO HS
01/26/24 11:00
DC Protocol for Telemetry ONCE
Abnormal Lab Results
01/23/24 01/24/24
21:19 00:30
WBC 19.0 H 10^3/uL
(4.8-10.8)
MCH 31.3 H pg
(27.0-31.0)
Abs Immat Gran (auto) 0.5 H 10^3/uL
(0-0.05)
Absolute Neuts (auto) 16.3 H 10^3/uL
(1.4-6.5)
Absolute Lymphs (auto) 1.1 L 10^3/uL
(1.2-3.4)
Absolute Monos (auto) 1.1 H 10^3/uL
(0.1-0.6)
Immature Gran % 2.4 H %
(0-0.5)
Neutrophils % 85.7 H %
(42.2-75.2)
Lymphocytes % 6.0 L %
(20.5-51.1)
Potassium 3.4 L mmol/L
(3.5-5.1)
Carbon Dioxide 32 H mmol/L
(22-30)
BUN 26 H mg/dl
(7-17)
Glucose 169 H mg/dl
(70-99)
AST 143 H U/L
(14-36)
ALT 662 H* U/L
(0-35)
Alkaline Phosphatase 194 H U/L
(38-126)
Troponin I 0.184 H* ng/ml
Total Protein 5.8 L g/dl
(6.3-8.2)
Albumin 3.4 L g/dl
(3.5-5.0)
Lipase 1627 H* U/L
(23-300)
01/23/24 21:19
01/23/24 21:19
Vital Signs
Initial and Last Documented VS:
Initial Vital Signs
Temp Pulse Resp BP Pulse Ox
97.8 F 76 17 156/80 97
01/23/24 21:10 01/23/24 21:10 01/23/24 21:10 01/23/24 21:10 01/23/24 21:10
Last Documented Vital Signs
Temp Pulse Resp BP Pulse Ox
98.0 F 61 16 163/91 95
01/24/24 05:44 01/24/24 00:19 01/24/24 00:19 01/24/24 04:04 01/24/24 04:15
Joeylt;Betzaida Marcial, DO - Last Filed: 01/24/24 07:19>
MDM/Problems Addressed
Differential Diagnosis Includes:
Concern for cholecystitis, recurrent pancreatitis, ureteric stone, pyelonephritis, exacerbation of bony metastatic disease.
With complaints of right upper quadrant pain, right scapular pain must consider ACS as well as progression of carcinoid malignancy.
Will check LFTs, lipase, EKG, troponin. Will give an IV dose of Toradol and will check abdominal ultrasound.
Chronic conditions affecting care: COPD, Psychiatric illness and Cancer
<Betzaida Marcial DO - Last Filed: 01/24/24 07:19>
*Radiology
Radiology exam reviewed: radiology read reviewed (Abdominal ultrasound shows no evidence of cholelithiasis nor acute cholecystitis. Common bile duct measuring 5 mm. Unremarkable kidney and unremarkable visualized pancreas.)
*Pulse Oximetry
Patient hypoxic: no
*Critical Care Note
Total Time (30-74mins, 75-104mins- exclusive of procedures): Not Applicable
ED Attending Note
<Fly Moreau PA-C - Last Filed: 01/23/24 21:12>
-
Portions of this chart may have been created with voice recognition software.� Occasional wrong word or��sound alike� substitutions may have occurred due to the inherent limitations of voice recognition software.
Discharge Plan
Departure
Patient Disposition: Admit
Date of Disposition: 01/24/24
Time of Disposition: 03:25
Admit to: Telemetry
Admit to doctor: Naveed
Presentation/result/management discussed w/ accepting MD/DO: Hospitalist
Condition: Serious
Discharge Problem:
Acute recurrent pancreatitis, Elevated troponin, Closed compression fracture of first lumbar vertebra
Interventions
Interventions:
*Risk Screen - Suicide Last Done: 01/23/24 21:10
*General Assessment Last Done: 01/23/24 21:10
*Neglect/Abuse Screening Last Done: 01/23/24 21:10
ED- Fall Risk Assessment Last Done: 01/24/24 00:30
*ED COVID-19 Vaccine History Last Done: 01/24/24 01:50
ED-Musculoskeletal Assessment Last Done: 01/24/24 00:30
[2024-01-23 21:36] LABS: % Basophils 0.3 % (0-2); % Eosinophils 0.1 % (0-6); % Immature Granulocytes 2.4 % (0-0.5); % Monocytes 5.5 % (1.7-9.3); % Neutrophils 85.7 % (42.2-75.2); Absolute Basophils 0.1 10^3/uL (0-0.2); Absolute Immature Granulocytes 0.5 10^3/uL (0-0.05); Absolute Lymphocytes 1.1 10^3/uL (1.2-3.4); Absolute Monocytes 1.1 10^3/uL (0.1-0.6); Absolute Neutrophils 16.3 10^3/uL (1.4-6.5); Hematocrit 43.1 % (37.0-47.0); Mean Corp Hgb Conc. 34.8 g/dL (33.0-37.0); Mean Corpuscular Hgb 31.3 pg (27.0-31.0); Mean Corpuscular Volume 89.8 fL (81.0-99.0); Mean Platelet Volume 9.3 fL (7.4-10.4); Nucleated Red Blood Cells % 0 %; Platelet Count 197 10^3/uL (130-400); Red Cell Dist. Width 13.5 % (11.5-14.5)
[2024-01-23 21:50] LABS: Blood Urea Nitrogen 26 mg/dl (7-17); Calcium 8.4 mg/dl (8.4-10.2); Carbon Dioxide 32 mmol/L (22-30); Chloride 100 mmol/L (98-107); Glucose 169 mg/dl (70-99); Potassium 3.4 mmol/L (3.5-5.1); Sodium 139 mmol/L (135-145); eGFR > 60.00
[2024-01-24] VITALS (21 sets, daily range): BP systolic 118–172; BP diastolic 60–94; PULSE 74; O2SAT 96; BMI 17.8
[2024-01-24] MEDS: NSS 1000 IV (00:19)
[2024-01-24] MEDS: TORADOL 15 MG IV (00:20)
[2024-01-24 00:33] LABS: ALT (SGPT) 662 U/L (0-35); AST (SGOT) 143 U/L (14-36); Albumin 3.4 g/dl (3.5-5.0); Alkaline Phosphatase 194 U/L (38-126); Lipase 1627 U/L (23-300); Total Bilirubin 0.4 mg/dl (0.2-1.3); Total Protein 5.8 g/dl (6.3-8.2)
[2024-01-24 01:07] LABS: Troponin I 0.184 ng/ml
[2024-01-24 01:17] LABS: Lactic Acid 1.5 mmol/L (0.7-2.0)
[2024-01-24 01:32] LABS: Erythrocyte Sed Rate 12 mm/hour (0-20)
[2024-01-24 02:06] LABS: Urine Albumin Negative (Neg - Trace); Urine Bilirubin Negative (Negative); Urine Character Clear (Clear); Urine Color Yellow; Urine Glucose Negative (Negative); Urine Ketone Negative (Negative); Urine Leukocyte Negative (Negative); Urine Nitrite Negative (Negative); Urine Occult Blood Negative (Negative); Urine Urobilinogen Negative (Neg - 1+)
--- NOTE | 2024-01-24 04:11 | HPS.HSE ---
Family Physician
-
Family Physician: Stanislaw Alonso
Chief Complaint
-
Abd Pain / Back Pain
History of Present Illness
Patient is an 83y F with PMH significant for metastatic carcinoid tumor, hypertension and dementia who presents to ED complaining of back pain and abdominal pain. Patient was admitted to from 01/14 - 01/15 with similar symptoms. She was
treated for pancreatitis at that time - presumed passed gallstone v medication induced. Patient returns with recurrent symptoms this evening of severe R flank pain. This time accompanied by RUQ pain and R scapula pain as well.
Patient with no N/V, fevers / chills, etc.
Medical History
Past Medical History
Past Medical History: Reports Cancer (Lungs Ca, brain mets), Dementia, GERD, HTN and Hypercholesterolemia
Past Surgical History: Reports Gynocological (Tubal ligation) and Tonsilectomy
Social History
Unable to obtain full social history at this time due to: Dementia
Alcohol: None
Drug: None
Personal: Single
Living: Assisted Living
Employment: Retired
Family History
Family History: Unable to Obtain
Allergies / Home Medications
Allergies reflects when Allergies were last updated in [facility].
Home Medications with original date entered in [facility]
Allergy/Medication List:
Allergies
Allergy/AdvReac Type Severity Reaction Status Date / Time
No Known Allergies Allergy Unverified 12/09/23 09:45
Home Medications
cetirizine 10 mg tablet 10 mg PO DAILY Allergies 07/14/23
fluticasone propionate 50 mcg/actuation nasal spray,suspension 1 spray intranasal DAILY Allergies 07/14/23
levetiracetam 500 mg tablet (Keppra) 500 mg PO BID #60 tabs 07/14/23
losartan 25 mg tablet 50 mg PO DAILY Blood Pressure 07/14/23
metoprolol succinate 25 mg tablet,extended release 24 hr (Toprol XL) 25 mg PO BID Blood Pressure 07/14/23
sertraline 25 mg tablet 50 mg PO DAILY Depression 07/14/23
acetaminophen 500 mg tablet 1,000 mg PO Q6H PRN pain 01/14/24
amlodipine 5 mg tablet 5 mg PO DAILY Blood Pressure 01/14/24
dexamethasone 2 mg tablet 2 mg PO DAILY Anti-Inflammatory 01/14/24
donepezil 5 mg tablet 5 mg PO HS Alzheimer's 01/14/24
pantoprazole 40 mg tablet,delayed release 40 mg PO DAILY Gastrointestinal Issue 01/14/24
dexamethasone 2 mg tablet 2 mg PO Q48H Anti-Inflammatory 01/15/24
OR record also lists 'Patient own med. Bascvellia 1.2g capsules. Take two capsules twice daily.'
Review of Systems
-
History Source: Patient
A 12 point ROS was completed and negative except as noted: Yes
Constitutional: Reports Fatigue; Denies Fever or Chills
Respiratory: Denies Cough or Trouble Breathing
Cardiac: Denies Chest Pain
Abdomen/GI: Reports Abdominal Pain; Denies Nausea or Vomiting
: Denies Dysuria or Frequency
Musculoskeletal: Reports Other (Back pain / R shoulder blade pain.)
Neurological: Denies Dizzy or Headache
Psych: Reports Anxiety; Denies Depression
Physical Exam
Vital Signs
Vital Signs
Temp Pulse Resp BP Pulse Ox
97.8 F 61 16 157/83 97
01/23/24 21:10 01/24/24 00:19 01/24/24 00:19 01/24/24 02:00 01/24/24 02:01
Physical Exam
General: Other (83y F in mild distress due to discomfort and anxiety.)
HEENT: Moist mucous membranes and PERRLA
Respiratory: Clear; No Wheezes, Rales or Rhonchi
Cardiac: S1/S2 and Regular Rhythm
GI: Soft, Non Distended, Normal Bowel Sounds and Other (RUQ / epigastric tenderness without rebound / guarding.)
Musculoskeletal: No Clubbing, No Cyanosis and No Edema
Neuro: Awake, Alert and Oriented
Laboratory Results
-
01/23/24 21:19
01/23/24 21:19
Laboratory Results
Lactic Acid 1.5 mmol/L (0.7-2.0) 01/24/24 00:30
Total Bilirubin 0.4 mg/dl (0.2-1.3) 01/23/24 21:19
AST 143 U/L (14-36) H 01/23/24 21:19
ALT 662 U/L (0-35) H* 01/23/24 21:19
Alkaline Phosphatase 194 U/L (38-126) H 01/23/24 21:19
Troponin I 0.184 ng/ml H* 01/24/24 00:30
Lipase 1627 U/L (23-300) H* 01/23/24 21:19
Impression/Plan
-
A/P: Patient is an 83y F with PMH significant for metastatic carcinoid tumor on chemo, hypertension and mild dementia who presents to ED complaining of recurrent R flank / back pain.
Pancreatitis
- Admit for further evaluation and treatment.
- Patient now with recurrent / increased symptoms, more significant LFT abnormalities and recurrent lipase elevation c/w pancreatitis.
- Will check MRI / MRCP in the AM.
- ? med induced symptoms and note that patient is on 'Bascvellia' at the OR - which was obviously held during her hospital stay here.
- I can find no information on this med / supplement. Based on dose - ? if this is a branded Fish Oil or similar?
- Would hold / discontinue.
- Also possible pancreatitis / LFT abnormalities are secondary to chemo regimen - though she has received no additional chemo since her last visit here.
- GI evaluation for additional recommendations.
Abnormal Troponin
- Suspect non-ischemic myocardial injury.
- Follow troponin to peak. Monitor for changes in symptoms.
- Consider Cardiology evaluation if new chest pain, dyspnea or rising troponin.
Metastatic Carcinoid Tumor
- Absent her lipase and LFT elevations, patient does have evidence of bony metastases which may be contributing to her pain.
- Also with reported brain mets and on dexamethasone and Keppra. Continue.
- Follow-up with Oncologist at [place] after discharge.
Benign Hypertension
- Stable. Continue outpatient med regimen with holding parameters.
Anxiety / Depression
- Some acute anxiety regarding her current symptoms / pain.
- Continue current medications.
DVT Prophylaxis: SCDs
Code Status: Full
[2024-01-24] MEDS: DILAUDID 0.5 MG IV (05:27)
[2024-01-24] MEDS: LR 1000 IV ×2 (05:31→17:33)
[2024-01-24] MEDS: DECADRON 2 MG PO ×2 (06:34→07:48)
--- NOTE | 2024-01-24 07:10 | CON.GI ---
Addendum entered and electronically signed by Teofilo Mei MD 01/24/24 12:36:
Patient seen and examined, agree with nurse practitioner note. The patient is an 83-year-old female past medical history as noted who presents with recurrent abdominal pain. She was recently here with pancreatitis given labs and symptoms. At that
point workup was essentially markable including ultrasound and CT scan. She now represents with recurrent symptoms, which she describes as pain with radiation to the back and associated nausea. She is currently feeling much better and denies any
pain now. She has been receiving octreotide for her carcinoid. Her ultrasound did not show gallstones or dilated CBD. She has been on chronic steroids given history of brain metastasis. On exam she has minimal epigastric tenderness, no rebound.
CT scan report is currently pending. At this point again she has symptoms consistent with pancreatitis given pain and elevated lipase. Workup was negative for cholelithiasis CBD stone in the past, though will await repeat CT scan and MRI results.
Will continue IV fluids, antiemetics as needed and supportive care for now. While octreotide has rare incidence of pancreatitis, this would be considered much less likely source of her recurrent symptoms.
Original Note:
Consultation
-
Date/Time Consultation Requested: 01/24/24 0515
Date/Time Consultation Performed: 01/24/24 1000
Requesting Provider: Marek Lucio DO
Performing Provider: LASHANDA Nguyen, Dre Mei MD
Reason for Consultation: increased LFT's and lipase, abdominal pain
Medical History
Chief Complaint / HPI
Chief Complaint: back pain
History of Present Illness:
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
pancreatitis due to passed gallstone vs drug related with hx with monthly injection with oncology at [facility] . She now returns with similar right sided pain. On admission she is noted with WBC 19,000, bili 0.6, AST 96, ALT 476, and alk phos 149.
Troponin mild elevation with 0.184 on admission. In review with family carcinoid was first noted in Lung around August 2022. She then was noted with mets with injections through [facility] with Dr. Quiroz and Dr. Dawit Rm. She recently
received further injection but family was unaware of name of medication.
Pt currently with some confusion but states improved pain. In review with nursing staff improved with recent medication. Pt denies odynophagia, dysphagia, GERD, nausea, vomiting, diarrhea, constipation, blood or black in stools. CT completed
01/14 with no acute abdominal abnormlity and enlarging osseous lesions with progression of mets. US abdomen completed on admission with no cholelithiasis , GBWT or biliary dilatation. repeat CT from today along with MRI pending. Pt has also been
in chronic steroids with hx brain mets.
Past Medical History
Past Medical History: Other (carcinoid lung ca with brain mets, dementia, GERD, HTN HL, depression, anxiety )
Past Surgical History: Other (tubal ligation tonsillectomy)
Social History
Tobacco: Non-Smoker
Alcohol: None
Drug: None
Living: Assisted Living (memory care )
Employment: Retired
Family History
Family History: Unable to Obtain
Allergies / Home Medications
Allergy/AdvReac Type Severity Reaction Status Date / Time
No Known Allergies Allergy Unverified 12/09/23 09:45
�Medication �Instructions �Recorded
cetirizine 10 mg tablet 10 mg PO DAILY Allergies 07/14/23
fluticasone propionate 50 1 spray intranasal DAILY Allergies 07/14/23
mcg/actuation nasal
spray,suspension
levetiracetam 500 mg tablet 500 mg PO BID #60 tabs 07/14/23
(Keppra)
losartan 25 mg tablet 50 mg PO DAILY Blood Pressure 07/14/23
metoprolol succinate 25 mg 25 mg PO BID Blood Pressure 07/14/23
tablet,extended release 24 hr
(Toprol XL)
sertraline 25 mg tablet 50 mg PO DAILY Depression 07/14/23
acetaminophen 500 mg tablet 1,000 mg PO Q6H PRN pain 01/14/24
amlodipine 5 mg tablet 5 mg PO DAILY Blood Pressure 01/14/24
dexamethasone 2 mg tablet 2 mg PO DAILY Anti-Inflammatory 01/14/24
donepezil 5 mg tablet 5 mg PO HS Alzheimer's 01/14/24
pantoprazole 40 mg tablet,delayed 40 mg PO DAILY Gastrointestinal 01/14/24
release Issue
dexamethasone 2 mg tablet 2 mg PO Q48H Anti-Inflammatory 01/15/24
Review of Systems
-
Unable to obtain full review of systems at this time due to: Dementia and Other (confused)
History Source: Patient and Family
Constitutional: Reports No Symptoms
EENT: Reports No Symptoms
Respiratory: Reports No Symptoms
Abdomen/GI: Reports Abdominal Pain
: Reports No Symptoms
Musculoskeletal: Reports No Symptoms
Skin: Reports No Symptoms
Neurological: Reports Other (forgetful, confusion)
Endocrine: Reports No Symptoms
Hematologic/Lymphatic: Reports No Symptoms
Vital Signs
Temp Pulse Resp BP Pulse Ox
98.0 F 61 16 163/91 95
01/24/24 05:44 01/24/24 00:19 01/24/24 00:19 01/24/24 04:04 01/24/24 04:15
Physical Exam
Exam
General: Well Developed, Well Nourished and No Apparent Distress
HEENT: Normocephalic
Respiratory: Clear
Cardiac: Regular Rhythm and Peripheral Edema
GI: Soft, Non Distended and Tender (epigastric )
Musculoskeletal: No Clubbing and No Cyanosis
Skin: Warm and Dry
Neuro: Awake, Alert and AO x 3
Psych: Calm
Results
WBC 19.0 10^3/uL (4.8-10.8) H 01/23/24 21:19
Hgb 15.0 g/dL (12.0-16.0) 01/23/24 21:
Hct 43.1 % (37.0-47.0) 01/23/24 21:
MCV 89.8 fL (81.0-99.0) 01/23/24 21:19
Plt Count 197 10^3/uL (130-400) 01/23/24 21:
Absolute Neuts (auto) 16.3 10^3/uL (1.4-6.5) H 01/23/24 21:19
Sodium 139 mmol/L (135-145) 01/23/24 21:
Potassium 3.4 mmol/L (3.5-5.1) L 01/23/24 21:
Chloride 100 mmol/L (98-107) 01/23/24 21:
Carbon Dioxide 32 mmol/L (22-30) H 01/23/24 21:19
BUN 26 mg/dl (7-17) H 01/23/24 21:19
Creatinine 0.7 mg/dL (0.6-1.0) 01/23/24 21:
Calcium 8.4 mg/dl (8.4-10.2) 01/23/24 21:19
Total Bilirubin 0.4 mg/dl (0.2-1.3) 01/23/24 21:
AST 143 U/L (14-36) H 01/23/24 21:19
ALT 662 U/L (0-35) H* 01/23/24 21:19
Alkaline Phosphatase 194 U/L (38-126) H 01/23/24 21:
Lipase 1627 U/L (23-300) H* 01/23/24 21:19
Diagnostic Image Results:
01/15/24- CT A/p IV only
1. No significant acute abnormality identified in the abdomen or pelvis, as described above.
2. Slight interval enlargement of osseous lesions within L2 and the upper sacrum, suspicious for progression of metastases.
01/24/24 US abdomen
IMPRESSION: No evidence of cholelithiasis, gallbladder wall thickening or biliary tract dilatation.
Pancreas and spleen difficult to visualize.
01/24/24 CT A/p pending
01/24/24 MRI pending
Prior GI Procedures:
EGD: unknown
Colonoscopy: unknown
Assessment / Plan
-
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
pancreatitis due to passed gallstone vs drug related with hx with monthly injection with oncology at [facility]. She now returns with similar right sided pain. On admission she is noted with WBC 19,000, bili 0.6, AST 96, ALT 476, and alk phos 149.
Troponin mild elevation with 0.184 on admission. In review with family carcinoid was first noted in Lung around August 2022. She then was noted with mets with injections through [facility] with [facility] with Dr. Quiroz and Dr. Dawit Rm. She recently
received further injection but family was unaware of name of medication.
-epigastric abdominal pain
-increased LFT's and lipase
-leukocytosis
-elevated troponin
-hx metastatic carcinoid lung with mets to brain, sacrum and lumbar spine
other med problems:
-dementia
-anxiety/depression
-HTN
PLAN:
etiology of LFT and lipase elevation related to biliary source, recent oncologic treatment vs other
US with No evidence of cholelithiasis, gallbladder wall thickening or biliary tract dilatation
await repeat CT and MRI
I requested records from pt oncologist to confirm current treatment
cont pain management per hospitalist which is improving
Cont LR at 100ml/hr
NPO
trend labs
cont PPI with steroid use
I updated sister who was able to assist with history
-
-
Thank you for consultation and allowing me to participate in the patient's care. Please call the global compensation manager GI physician during the after hours with any questions or concerns.
[2024-01-24] MEDS: LOW STRENGTH ASPIRIN 81 MG PO (07:46)
[2024-01-24] MEDS: TOPROL XL 25 MG PO ×2 (07:46→20:58)
[2024-01-24] MEDS: PROTONIX 40 MG PO (07:46)
[2024-01-24] MEDS: KEPPRA 500 MG PO ×2 (07:46→20:58)
[2024-01-24] MEDS: NORVASC 5 MG PO (07:47)
[2024-01-24] MEDS: ZOLOFT 50 MG PO (07:47)
[2024-01-24 08:03] LABS: Troponin I 0.176 ng/ml
[2024-01-24 08:08] LABS: ALT (SGPT) 476 U/L (0-35); AST (SGOT) 96 U/L (14-36); Alkaline Phosphatase 149 U/L (38-126); Blood Urea Nitrogen 18 mg/dl (7-17); Calcium 7.9 mg/dl (8.4-10.2); Carbon Dioxide 36 mmol/L (22-30); Chloride 102 mmol/L (98-107); Direct Bilirubin 0.2 mg/dl (0.0-0.4); Estimated Creatinine Clearance 52 ml/min; Glucose 110 mg/dl (70-99); Sodium 141 mmol/L (135-145); Total Bilirubin 0.6 mg/dl (0.2-1.3); Total Protein 5.3 g/dl (6.3-8.2); eGFR > 60.00
[2024-01-24] MEDS: COZAAR 50 MG PO (08:25)
[2024-01-24 08:28] LABS: Hematocrit 41.6 % (37.0-47.0); Hemoglobin 13.7 g/dL (12.0-16.0); Mean Corp Hgb Conc. 32.9 g/dL (33.0-37.0); Mean Corpuscular Hgb 30.6 pg (27.0-31.0); Mean Corpuscular Volume 92.9 fL (81.0-99.0); Mean Platelet Volume 9.3 fL (7.4-10.4); Platelet Count 156 10^3/uL (130-400); Red Blood Cell Count 4.48 10^6/uL (4.20-5.40); Red Cell Dist. Width 13.6 % (11.5-14.5); White Blood Cell Count 7.2 10^3/uL (4.8-10.8)
--- NOTE | 2024-01-24 11:34 | CM ---
Addendum entered by Angie Francis 01/24/24 13:54:
Patient sister confirmed that [facility]; Patient has had multiple changes in last 8 months different facilities and needs.
Original Note:
Patient seen at bedside in ED. Patient documentation states that she is from [facility], Patient unable to clearly identify supports at [facility]. CM called to [facility] x2 attempting to reach nursing about patient care. CM called to patient
Sister and left message. Patient stated that her sister is the person to call but she could not recall where she was at this time. Per review of prior admission patient was assisted in all activities of daily living as of 01/15/24. Patient also had
[facility] in the past. CM will attempt to reach Alicia at [facility] again about patient needs. Patient PCP is Dr. Mayfield and Patient Pharmacy is [facility]. Patient did return to Memory Care on 01/15 with referral to [facility] and CM called to [facility] at
[phone], left. CM will continue to follow for discharge planning needs.
Plan; return to Personal care; Pending medical treatment plan, patient may benefit from PT/OT assessment.
Please call referral to [phone] and fax [phone].
--- NOTE | 2024-01-24 11:40 | W.PN.HOSP.TC ---
Today's Communication/Plan
-
cont IVF/NPO/PT/OT
Assessment / Plan
Assessment / Plan
pt is an 83 year old female
acute Pancreatitis--recurrent symptoms--cont NPO/IVF--await MRI/MRCP-- ? med induced symptoms and note that patient is on 'Bascvellia' at the [place] - which was obviously held during her hospital stay here--would stop at d/c--no chemo since last
visit--apprec GI
Abnormal Troponin-- Suspect non-ischemic myocardial injury-- Follow troponin to [facility]. Monitor for changes in symptoms-- Consider Cardiology evaluation if new chest pain, dyspnea or rising troponin.
Metastatic Carcinoid Tumor-- Absent her lipase and LFT elevations, patient does have evidence of bony metastases which may be contributing to her pain-- Also with reported brain mets and on dexamethasone and Keppra. Continue--- Follow-up with
Oncologist at [facility] after discharge.
Essential Hypertension - Stable. Continue outpatient med regimen with holding parameters.
Anxiety / Depression- Some acute anxiety regarding her current symptoms / pain - Continue current medications.
DVT Prophylaxis: SCDs
Code Status: Full
Anticipated Discharge: > 48 hours
Subjective/Interval History
-
Date of Service: January 24, 2024
pt with obvious dementia--does say she is feeling better
Objective Data
-
Labs:
Laboratory Results
01/23/24 01/24/24
21:19 07:25
WBC 7.2
Hgb 13.7
Hct 41.6
Plt Count 156 D
Sodium 139 141
Potassium 3.4 L 4.0
Chloride 100 102
Carbon Dioxide 32 H 36 H
BUN 26 H 18 H
Creatinine 0.7 0.5 L
Glucose 169 H 110 H
Calcium 8.4 7.9 L
Total Bilirubin 0.4 0.6
AST 143 H 96 H
ALT 662 H* 476 H
Alkaline Phosphatase 194 H 149 H
Vital Signs:
max temp for 24 hours
01/24/24
05:44
Temp 98.0 F
Vital Signs
Temp Pulse Resp BP Pulse Ox
98.0 F 70 16 160/78 93
01/24/24 05:44 01/24/24 09:45 01/24/24 09:45 01/24/24 09:00 01/24/24 09:45
Review of Systems
-
Unable to obtain full review of systems at this time due to: Dementia
All other systems: Reviewed and negative
Physical Exam
-
General: Well Developed, Well Nourished and No Apparent Distress
HEENT: Normocephalic and Atraumatic
Respiratory: Clear to Auscultation; Negative Wheezes or Rhonchi
Cardiac: Regular Rhythm and S1/S2; Negative Murmur
GI: Soft, Nondistended, Normal Bowel Sounds and Tender (mildly midepigastric--no guarding or rebound)
Musculoskeletal: No Clubbing, No Cyanosis and No Edema
Neuro: Awake
Psych: Calm
--- NOTE | 2024-01-24 20:34 | PTCARENOTE ---
Pt came up to unit via stretcher and was pulled over to bed with assistance from PCT. Pt assessed and VSS. Pt very tearful and anxious. Pt disoriented to time. This RN consoled pt and reoriented and repositioned her in bed to be comfortable. Care
ongoing.
[2024-01-24] MEDS: ARICEPT 5 MG PO (21:41)
[2024-01-24 21:47] LABS: Troponin I 0.101 ng/ml
[2024-01-25] VITALS (7 sets, daily range): BP systolic 101–145; BP diastolic 55–74; PULSE 67; O2SAT 95; BMI 17.8
--- NOTE | 2024-01-25 05:33 | PTCARENOTE ---
Pt placed on med sitter due to getting out of bed without ringing call [place]. Pt unsteady on her feet and needs at minimum a X1 assist to the commode.
[2024-01-25] MEDS: LR 1000 IV (05:56)
[2024-01-25 06:46] LABS: Hematocrit 38.4 % (37.0-47.0); Hemoglobin 13.1 g/dL (12.0-16.0); Mean Corp Hgb Conc. 34.1 g/dL (33.0-37.0); Mean Corpuscular Hgb 30.9 pg (27.0-31.0); Mean Corpuscular Volume 90.6 fL (81.0-99.0); Mean Platelet Volume 9.2 fL (7.4-10.4); Platelet Count 126 10^3/uL (130-400); Red Blood Cell Count 4.24 10^6/uL (4.20-5.40); Red Cell Dist. Width 13.8 % (11.5-14.5); White Blood Cell Count 14.3 10^3/uL (4.8-10.8)
[2024-01-25 07:04] LABS: ALT (SGPT) 298 U/L (0-35); AST (SGOT) 48 U/L (14-36); Albumin 2.6 g/dl (3.5-5.0); Alkaline Phosphatase 130 U/L (38-126); Blood Urea Nitrogen 14 mg/dl (7-17); Carbon Dioxide 30 mmol/L (22-30); Chloride 102 mmol/L (98-107); Estimated Creatinine Clearance 47 ml/min; Glucose 93 mg/dl (70-99); Lipase 111 U/L (23-300); Potassium 3.8 mmol/L (3.5-5.1); Sodium 134 mmol/L (135-145); Total Bilirubin 1.2 mg/dl (0.2-1.3); Total Protein 4.7 g/dl (6.3-8.2); eGFR > 60.00
[2024-01-25] MEDS: DECADRON 2 MG PO (07:39)
[2024-01-25] MEDS: PROTONIX 40 MG PO (07:40)
[2024-01-25] MEDS: ZOLOFT 50 MG PO (07:40)
[2024-01-25] MEDS: LOW STRENGTH ASPIRIN 81 MG PO (07:40)
[2024-01-25] MEDS: KEPPRA 500 MG PO ×2 (07:40→20:42)
[2024-01-25] MEDS: TOPROL XL 25 MG PO ×2 (07:40→20:42)
[2024-01-25] MEDS: NORVASC 5 MG PO (07:42)
[2024-01-25] MEDS: COZAAR 50 MG PO (07:42)
--- NOTE | 2024-01-25 09:31 | CM ---
Addendum entered by Angie Francis 01/25/24 14:11:
CM sent OT/PT therapy report faxed to Alicia at [facility]. Patient in memory care with closer supervision per Alicia SM[facility] at [facility].
Addendum entered by Angie Francis 01/25/24 10:45:
PT/OT to confirm recommendation of discharge. CM will continue to follow for discharge planning needs.
Original Note:
Patient seen at bedside with physician. Patient pleasant and on O2. CM will continue to reach out to [facility] for update regarding ability to return to personal care. CM will continue to follow for discharge planning needs.
Plan; return to [facility] vs SNF
--- NOTE | 2024-01-25 09:55 | W.PN.HOSP.TC ---
Today's Communication/Plan
-
advance diet
d/c planning
Assessment / Plan
Assessment / Plan
pt is an 83 year old female
acute Pancreatitis--recurrent symptoms--suspect due to chemo/medication related--low fat diet-- MRI/MRCP without evidence of pancreatitis-- ? med induced symptoms and note that patient is on 'Bascvellia' at the [place] - which was obviously held during
her hospital stay here--would stop at d/c--no chemo since last visit--apprec GI
Abnormal Troponin-- Suspect non-ischemic myocardial injury-- Follow troponin to [facility]. Monitor for changes in symptoms-- Consider Cardiology evaluation if new chest pain, dyspnea or rising troponin.
Metastatic Carcinoid Tumor-- Absent her lipase and LFT elevations, patient does have evidence of bony metastases which may be contributing to her pain-- Also with reported brain mets and on dexamethasone and Keppra. Continue--- Follow-up with
Oncologist at [facility] after discharge.
Essential Hypertension - Stable. Continue outpatient med regimen with holding parameters.
Anxiety / Depression- Some acute anxiety regarding her current symptoms / pain - Continue current medications.
DVT Prophylaxis: SCDs
Code Status: Full
Anticipated Discharge: Within 24 hours
Subjective/Interval History
-
Date of Service: January 25, 2024
pt hungry
Objective Data
-
Labs:
Laboratory Results
01/25/24
06:21
WBC 14.3 H
Hgb 13.1
Hct 38.4
Plt Count 126 L
Sodium 134 L
Potassium 3.8
Chloride 102
Carbon Dioxide 30
BUN 14
Creatinine 0.5 L
Glucose 93
Calcium 8.0 L
Total Bilirubin 1.2
AST 48 H
ALT 298 H
Alkaline Phosphatase 130 H
Vital Signs:
max temp for 24 hours
01/24/24
23:45
Temp 98.5 F
Vital Signs
Temp Pulse Resp BP Pulse Ox
97.7 F 66 16 131/62 94
01/25/24 07:49 01/25/24 07:49 01/25/24 07:49 01/25/24 07:49 01/25/24 07:49
Review of Systems
-
All other systems: Reviewed and negative
Physical Exam
-
General: Well Developed, Well Nourished and No Apparent Distress
HEENT: Normocephalic and Atraumatic
Respiratory: Clear to Auscultation; Negative Wheezes or Rhonchi
Cardiac: Regular Rhythm and S1/S2; Negative Murmur
GI: Soft, Nontender, Nondistended and Normal Bowel Sounds
Musculoskeletal: No Clubbing, No Cyanosis and No Edema
Neuro: Awake and Alert
Psych: Calm
--- NOTE | 2024-01-25 13:48 | W.PN.GI.CBS2 ---
Addendum entered and electronically signed by Teofilo Mei MD 01/25/24 15:50:
Patient seen and examined, agree with nurse practitioner note. Patient doing well today, no sign of abdominal pain, exam is benign, MRI without any significant pathology, labs overall improved including lipase that is markedly improved quickly. It
is hard to come up with a unifying diagnosis, still more consistent with a CBD stone that passed spontaneously, though would not account for her repeated symptoms. Is hard to blame all of her symptoms also on octreotide. At this point she is
tolerating diet, labs improved and exam is benign. Will hold on further GI workup for now. We will sign off for now, please go back with any further questions.
Original Note:
Today's Communication / Plan
-
etiology of LFT and lipase elevation related to biliary source ? passed stone, recent oncologic treatment vs other
US with No evidence of cholelithiasis, gallbladder wall thickening or biliary tract dilatation and MRI similar without GB pathology, stones or duct dilation
abd pain resolved
agree with low fat diet
trend labs
cont PPI with steroid use
I reviewed [facility] records-- pt receiving Lenreotide every 4 weeks
per up to date : side effects Gastrointestinal: Abdominal pain (7% to 34%), cholelithiasis (2% to 27%), diarrhea (31%), gallbladder sludge (<=0%), vomiting (5% to 19%)
I left message for Dr. Rm with update on [address] Chapman
I updated friend as per staff sister currently unable to reach as flying home from [place].
Assessment / Plan
-
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
pancreatitis due to passed gallstone vs drug related with hx with monthly injection with oncology at [facility]. She now returns with similar right sided pain. On admission she is noted with WBC 19,000, bili 0.6, AST 96, ALT 476, and alk phos 149.
Troponin mild elevation with 0.184 on admission. In review with family carcinoid was first noted in Lung around August 2022. She then was noted with mets with injections through [facility] with [facility] with Dr. Quiroz and Dr. Dawit Rm.
01/25/24 MR Abdomen W/o & W Contrast
Nodular focus of intermediate T2-weighted signal within the right lower lung, which appears stable from CT of the chest abdomen and pelvis of July 09, 2022. Patient has a reported history of carcinoid neoplasm.
No focal abnormality of the gallbladder. No evidence for biliary ductal dilation. No evidence for bile duct calculus.
Correlating with CT examination, 2 small foci of fat density within the superior pancreatic head, likely small lipomas.
There is no MR evidence for significant pancreatitis. No evidence for peripancreatic collection.
Bony metastatic lesions involving the right side of L2, the upper sacrum, and the right acetabulum.
-epigastric abdominal pain now resolved
-increased LFT's and lipase
-leukocytosis
-elevated troponin
-hx metastatic carcinoid lung with mets to brain, sacrum and lumbar spine
-small pancreatic lipoma per MRI
other med problems:
-dementia
-anxiety/depression
-HTN
PLAN:
etiology of LFT and lipase elevation related to biliary source ? passed stone, recent oncologic treatment vs other
US with No evidence of cholelithiasis, gallbladder wall thickening or biliary tract dilatation and MRI similar without GB pathology, stones or duct dilation
abd pain resolved
agree with low fat diet
trend labs
cont PPI with steroid use
I reviewed [facility] records-- pt receiving Lenreotide every 4 weeks
per up to date : side effects Gastrointestinal: Abdominal pain (7% to 34%), cholelithiasis (2% to 27%), diarrhea (31%), gallbladder sludge (<=0%), vomiting (5% to 19%)
I left message for Dr. Rm with update on [address] Chapman
I updated friend as per staff sister currently unable to reach as flying home from [place].
Subjective
Subjective
Date of Service: January 25, 2024
low fat diet, currently denies abdominal pain
Objective
Data Reviewed
Laboratory Data:
Laboratory Results
01/25/24 06:21
01/25/24 06:21
Laboratory Results
Total Bilirubin 1.2 mg/dl (0.2-1.3) 01/25/24 06:21
AST 48 U/L (14-36) H 01/25/24 06:21
ALT 298 U/L (0-35) H 01/25/24 06:21
Alkaline Phosphatase 130 U/L (38-126) H 01/25/24 06:21
Lipase 111 U/L (23-300) 01/25/24 06:21
Vital Signs and I&O:
Vital Signs
Temp Pulse Resp BP Pulse Ox
98.0 F 74 17 125/70 95
01/25/24 11:22 01/25/24 11:22 01/25/24 11:22 01/25/24 11:22 01/25/24 11:22
Physical Exam
Physical Exam
HEENT: Anicteric and Moist mucous membranes
Cardiology: Normal Sinus Rhythm
Pulmonary: Clear
GI: Soft, Non Distended and Non Tender
Extremities: No Edema
Neuro: Other (forgetful but awake and alert )
[2024-01-25] MEDS: ARICEPT 5 MG PO (21:55)
[2024-01-26 00:01] VITALS: BP 117/56
[2024-01-26 03:25] VITALS: BP 141/73
[2024-01-26] MEDS: DECADRON 2 MG PO ×2 (05:35→10:05)
[2024-01-26 07:23] VITALS: BP 147/83
[2024-01-26 07:44] LABS: Hemoglobin 12.5 g/dL (12.0-16.0); Mean Corp Hgb Conc. 32.9 g/dL (33.0-37.0); Mean Corpuscular Hgb 30.3 pg (27.0-31.0); Mean Platelet Volume 9.6 fL (7.4-10.4); Platelet Count 138 10^3/uL (130-400); Red Blood Cell Count 4.13 10^6/uL (4.20-5.40); Red Cell Dist. Width 13.8 % (11.5-14.5); White Blood Cell Count 13.4 10^3/uL (4.8-10.8)
[2024-01-26 08:06] LABS: ALT (SGPT) 227 U/L (0-35); AST (SGOT) 38 U/L (14-36); Albumin 2.6 g/dl (3.5-5.0); Alkaline Phosphatase 136 U/L (38-126); Blood Urea Nitrogen 15 mg/dl (7-17); Calcium 8.2 mg/dl (8.4-10.2); Carbon Dioxide 30 mmol/L (22-30); Chloride 102 mmol/L (98-107); Estimated Creatinine Clearance 47 ml/min; Glucose 130 mg/dl (70-99); Lipase 476 U/L (23-300); Potassium 3.7 mmol/L (3.5-5.1); Sodium 138 mmol/L (135-145); Total Bilirubin 0.7 mg/dl (0.2-1.3); Total Protein 4.8 g/dl (6.3-8.2); eGFR > 60.00
[2024-01-26] MEDS: COZAAR 50 MG PO (10:05)
[2024-01-26] MEDS: PROTONIX 40 MG PO (10:05)
[2024-01-26] MEDS: KEPPRA 500 MG PO (10:06)
[2024-01-26] MEDS: NORVASC 5 MG PO (10:06)
[2024-01-26] MEDS: TOPROL XL 25 MG PO (10:06)
[2024-01-26] MEDS: ZOLOFT 50 MG PO (10:07)
[2024-01-26] MEDS: LOW STRENGTH ASPIRIN 81 MG PO (10:07)
[2024-01-26 11:00] VITALS: BP 136/62
--- NOTE | 2024-01-26 11:44 | W.PN.HOSP.TC ---
Today's Communication/Plan
-
d/c
Assessment / Plan
Assessment / Plan
pt is an 83 year old female
acute Pancreatitis--recurrent symptoms--suspect due to chemo/medication related--low fat diet-- MRI/MRCP without evidence of pancreatitis, could have passed a stone I guess-- ? med induced symptoms and note that patient is on 'Bascvellia' at the [place]
- which was obviously held during her hospital stay here--would stop at d/c--no chemo since last visit--apprec GI
Abnormal Troponin-- Suspect non-ischemic myocardial injury-- Follow troponin to [facility]. Monitor for changes in symptoms-- Consider Cardiology evaluation if new chest pain, dyspnea or rising troponin.
Metastatic Carcinoid Tumor-- Absent her lipase and LFT elevations, patient does have evidence of bony metastases which may be contributing to her pain-- Also with reported brain mets and on dexamethasone and Keppra. Continue--- Follow-up with
Oncologist at [facility] after discharge.
Essential Hypertension - Stable. Continue outpatient med regimen with holding parameters.
Anxiety / Depression- Some acute anxiety regarding her current symptoms / pain - Continue current medications.
DVT Prophylaxis: SCDs
Code Status: Full
Anticipated Discharge: Today
Subjective/Interval History
-
Date of Service: January 26, 2024
pt is sitting in the chair saying she is scared
Objective Data
-
Labs:
Laboratory Results
01/26/24
07:19
WBC 13.4 H
Hgb 12.5
Hct 38.0
Plt Count 138
Sodium 138
Potassium 3.7
Chloride 102
Carbon Dioxide 30
BUN 15
Creatinine 0.5 L
Glucose 130 H
Calcium 8.2 L
Total Bilirubin 0.7
AST 38 H
ALT 227 H
Alkaline Phosphatase 136 H
Vital Signs:
max temp for 24 hours
01/26/24
03:25
Temp 98.1 F
Vital Signs
Temp Pulse Resp BP Pulse Ox
97.8 F 79 17 136/62 96
01/26/24 11:00 01/26/24 11:00 01/26/24 11:00 01/26/24 11:00 01/26/24 11:00
I&O
01/25/24 01/26/24 01/27/24
06:59 06:59 06:59
Intake Total 1680 / 1680
Balance 1680 / 1680
Review of Systems
-
All other systems: Reviewed and negative
Psych: Reports Other (scared)
Physical Exam
-
General: Well Developed, Well Nourished and No Apparent Distress
HEENT: Normocephalic and Atraumatic; Negative Oxygen
Respiratory: Clear to Auscultation; Negative Wheezes or Rhonchi
Cardiac: Regular Rhythm and S1/S2; Negative Murmur
GI: Soft, Nontender, Nondistended and Normal Bowel Sounds
Musculoskeletal: No Clubbing, No Cyanosis and No Edema
Neuro: Awake
Psych: Anxious (scared, tearful)
--- NOTE | 2024-01-26 11:58 | CM ---
Patient for discharge back to memory care. CM spoke with Taina from Memory care at [facility] and she requested patient return as soon as possible. CM spoke with patient sister Brielle who will cone picker patient to transport to Personal care. Please
call [phone]/fax [phone]. CM sent referral to [facility] via [facility] they requested CM call back in 12 hours. CM will update [facility] nursing to update [facility] referral. CM reviewed IMM with patient sister and she agreed to sign when she
arrives to transport. CM will continue to follow for discharge planning needs.
Plan; return to [facility] with [facility] rehab.
[2024-01-26 14:33] VITALS: BP 111/71
--- NOTE | 2024-01-26 16:06 | W.DCSUMMARY ---
Discharge Summary
Discharge Data
Date of Admission: 01/24/24
Date of Discharge: 01/26/24
-
Pending Results: No
Hospital Course
Primary care physician : Stanislaw Alonso
Principal Discharge diagnosis : Acute pancreatitis, abnormal troponin
Chronic Discharge diagnosis : Metastatic carcinoid tumor, essential hypertension, anxiety/depression, dementia
Hospital Course : Patient is an 83-year-old female with a history of metastatic carcinoid tumor and dementia who presented complaining of back pain and abdominal pain. Patient was admitted from 01 14-01 15 with similar symptoms. At that time, she
was treated with for pancreatitis. It was presumed that she passed a gallstone versus medication induced. Patient returned with same symptoms this time accompanied by right upper quadrant pain and right scapular pain. She was found to have
pancreatitis again and admitted.
Problem #1: Acute pancreatitis. Patient was made n.p.o. with IV fluids. She was seen in consultation by GI. MRI/MRCP was done which did not show any evidence of pancreatitis. Etiology still include a passed stone versus medication related.
Patient is on a medication which is a supplement at home ('Bascvellia') which was held the last admission and again this admission. Unfortunately, it was started at discharge from the last admission. It is unclear whether this is what is causing
the issue and I recommend stopping it altogether permanently as an outpatient. She is tolerating a low-fat diet and is stable for discharge.
Problem #2: Abnormal troponin. This was suspected to be nonischemic myocardial injury. No further workup was necessary.
Problem #3: All other medical issues. These include Metastatic carcinoid tumor, essential hypertension, anxiety/depression, dementia. These medical issues were stable during her hospitalization. Medications were continued as able.
Patient is stable for discharge at this time to return back to [facility]. If there are any questions regarding this dictation or her hospital stay, please and hesitate to call. Our office number is [phone].
Important imaging findings :
MRI/MRCP IMPRESSION: Nodular focus of intermediate T2-weighted signal within the right lower lung, which appears stable from CT of the chest abdomen and pelvis of July 09, 2022. Patient has a reported history of carcinoid neoplasm.
No focal abnormality of the gallbladder. No evidence for biliary ductal dilation. No evidence for bile duct calculus.
Correlating with CT examination, 2 small foci of fat density within the superior pancreatic head, likely small lipomas.
There is no MR evidence for significant pancreatitis. No evidence for peripancreatic collection.
Bony metastatic lesions involving the right side of L2, the upper sacrum, and the right acetabulum.
Discharge Plan
-
Patient Disposition: Assisted Living
Discharge Diagnosis/Procedures: Acute pancreatitis, nonischemic myocardial injury, metastatic carcinoid tumor, essential hypertension, anxiety/depression
Condition: Good
Diet: Low Fat
Activity: No restrictions
Driving Restrictions: No driving
Bathing Restrictions: None
Other Services: VN
Referrals:
Stanislaw Alonso MD [Family Provider] - in less than 1 week
Prescriptions:
New
dexamethasone 2 mg Tablet
2 mg PO Q48H Qty: 0 0RF
aspirin 81 mg Tablet,Chewable
81 mg PO DAILY Qty: 0 0RF
Continued
cetirizine 10 mg Tablet
10 mg PO DAILY
metoprolol succinate [Toprol XL] 25 mg Tablet Extended Release 24 Hr
25 mg PO BID
fluticasone propionate 50 mcg/actuation [place],Suspension
2 spray INTRANASAL DAILY
donepezil 5 mg Tablet
5 mg PO HS
amlodipine 5 mg Tablet
5 mg PO DAILY
acetaminophen 500 mg Tablet
1,000 mg PO Q6H PRN (Reason: mild pain)
dexamethasone 2 mg Tablet
2 mg PO UD
Rx Instructions:
take one tab po once daily in the morning for 10 days starting 01/15/24 then take one tablet po every other day until 02/04/24 then stop
pantoprazole 40 mg Tablet,Delayed Release (Dr/Ec)
40 mg PO DAILY
albuterol sulfate 90 mcg/actuation Hfa Aerosol Inhaler
2 puff INHALATION R Q4HPRN PRN (Reason: copd)
losartan 50 mg Tablet
50 mg PO DAILY
sertraline 50 mg Tablet
50 mg PO DAILY
Anti-Itch (menthol-camphor) 0.5-0.5 % Lotion
1 applic TOPICAL BID
levetiracetam [Keppra] 500 mg tablet
500 mg PO BID Qty: 60 0RF
Discontinued
Bascvellia
2.4 g PO BID
Discharge Orders:
Discharge Patient (As Directed); Ordered 01/26/24
Ordered By: Ani Chapman
Discharge Date and Time
Print Language: SURINAMESE
== END 2024-01-26 16:44 | disposition home or self-care (01) | DRG 439 ==
LOC: 3 WEST ACU 04:15
PROVIDERS: Nurse Practitioner Adult Health; Physician Assistant Medical; ADMITTING PHYSICIAN Hospitalist; ATTENDING PHYSICIAN Internal Medicine; CONSULT PHYSICIAN Internal Medicine Gastroenterology; EMERGENCY PHYSICIAN Emergency Medicine; FAMILY PHYSICIAN Family Medicine
DX: K85.90 Acute pancreatitis without necrosis or infection, unspecified (principal); C79.31 Secondary malignant neoplasm of brain; C79.51 Secondary malignant neoplasm of bone; C7A.090 Malignant carcinoid tumor of the bronchus and lung; I5A Non-ischemic myocardial injury (non-traumatic); F02.A3 Dementia in other diseases classified elsewhere, mild, with mood disturbance; F02.A4 Dementia in other diseases classified elsewhere, mild, with anxiety; M48.56XA Collapsed vertebra, not elsewhere classified, lumbar region, initial encounter for fracture; I10 Essential (primary) hypertension; K21.9 Gastro-esophageal reflux disease without esophagitis; E78.00 Pure hypercholesterolemia, unspecified; J44.9 Chronic obstructive pulmonary disease, unspecified; T45.1X5A Adverse effect of antineoplastic and immunosuppressive drugs, initial encounter; Z79.52 Long term (current) use of systemic steroids; Z79.82 Long term (current) use of aspirin; Z79.899 Other long term (current) drug therapy; Z87.891 Personal history of nicotine dependence
CPT/HCPCS: 72110; 74177; 74183; 76700; 80048; 80053; 80076; 81003; 83605; 83690; 84484; 85025; 85027; 85652; 93005; 96361; 96374; 97167; 97530; 97535; 99285; A9575; Q9967

== ENCOUNTER 2024-02-25 12:37 | Inpatient (IN) | payer OTHER, SELFPAY ==
[2024-02-25] VITALS (9 sets, daily range): BP systolic 109–151; BP diastolic 53–77; BMI 18.3; BMI 17.6
[2024-02-25 10:03] LABS: % Basophils 0.4 % (0-2); % Eosinophils 0.6 % (0-6); % Immature Granulocytes 1.2 % (0-0.5); % Lymphocytes 12.1 % (20.5-51.1); % Monocytes 4.6 % (1.7-9.3); % Neutrophils 81.1 % (42.2-75.2); Absolute Eosinophils 0.1 10^3/uL (0-0.7); Absolute Immature Granulocytes 0.1 10^3/uL (0-0.05); Absolute Lymphocytes 1.2 10^3/uL (1.2-3.4); Absolute Monocytes 0.4 10^3/uL (0.1-0.6); Absolute Neutrophils 7.7 10^3/uL (1.4-6.5); Hematocrit 36.1 % (37.0-47.0); Hemoglobin 11.8 g/dL (12.0-16.0); Mean Corp Hgb Conc. 32.7 g/dL (33.0-37.0); Mean Corpuscular Hgb 30.6 pg (27.0-31.0); Mean Corpuscular Volume 93.5 fL (81.0-99.0); Mean Platelet Volume 8.8 fL (7.4-10.4); Nucleated Red Blood Cells % 0 %; Platelet Count 290 10^3/uL (130-400); Red Blood Cell Count 3.86 10^6/uL (4.20-5.40); Red Cell Dist. Width 15.5 % (11.5-14.5); White Blood Cell Count 9.5 10^3/uL (4.8-10.8)
[2024-02-25 10:28] LABS: Lactic Acid 2.7 mmol/L (0.7-2.0)
[2024-02-25 10:29] LABS: ALT (SGPT) 18 U/L (0-35); AST (SGOT) 21 U/L (14-36); Albumin 2.7 g/dl (3.5-5.0); Alkaline Phosphatase 153 U/L (38-126); Blood Urea Nitrogen 17 mg/dl (7-17); Calcium 8.3 mg/dl (8.4-10.2); Carbon Dioxide 33 mmol/L (22-30); Chloride 101 mmol/L (98-107); Estimated Creatinine Clearance 48 ml/min; Glucose 199 mg/dl (70-99); Potassium 3.1 mmol/L (3.5-5.1); Sodium 140 mmol/L (135-145); Total Bilirubin 0.8 mg/dl (0.2-1.3); Total Protein 5.2 g/dl (6.3-8.2); eGFR > 60.00
[2024-02-25] MEDS: TYLENOL 650 MG PO (11:01)
[2024-02-25] MEDS: KCL 40 MEQ PO (11:01)
--- NOTE | 2024-02-25 11:17 | ED.GENMED ---
History of Present Illness
General
Chief Complaint: Skin Surface Trauma
Source: patient and ambulance crew
Exam Limitations: none
Time Seen by Provider: 02/25/24 09:52
History of Present Illness
History of Present Illness:
83yoF with a history of dementia, metastatic carcinoid tumor, COPD, hypertension, and epilepsy presenting via EMS from [facility] for evaluation of right ankle redness and swelling. Patient has a history of dementia and she is unsure how long her
wound has been there. She was started on Keflex twice daily 3 days ago without improvement. Per EMS reports, the nursing facility stated that her redness and swelling were worsening which prompted ER visit today. Patient denies any fevers or
chills. She denies any known trauma to the area.
Past History
Past History
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
Social History
Tobacco: Former smoker
Personal:
Living: assisted living (Memory care unit)
Family History
Family History: Other (Noncontributory)
Phy Exam
General Physical Exam
General Presentation: well appearing and no apparent distress
General age: appears stated age
General Skin: warm and dry
General Habitus: normal
General Mental: alert
ENT Exam
ENT Exam: normocephalic
Pulmonary Exam
Pulmonary Exam: no respiratory distress
Neurological Exam
Neurological Exam: alert
Skin Exam
Skin Exam: warm/dry and other (Erythema, warmth, and tenderness noted to the lateral R ankle. There is a large localized area of swelling noted that appears to be fluid-filled. There is also a small area of swelling superior to this which is
fluctuant. No crepitus or pain out of proportion. 2+ DP pulse.)
Psychiatric Exam
Psychiatric Exam: normal mood/affect
Course
Orders/Labs/Results
Orders:
Orders
02/25/24 Breakfast
Cholesterol Lowering
At Your Request: Limited Participation
Does patient need a safe tray?: No
Cholesterol Lowering: Sodium, 2 Gram
02/25/24 09:53
Complete Blood Count/With Diff Urgent
Comprehensive Metabolic Panel Urgent
Lactate Level [Lactic Acid] Urgent
02/25/24 10:00
Ankle, Right 3 view CR [CR Ankle - Right Min 3 Views *] Urgent
Comment:
Reason For Exam: wound
02/25/24 10:42
Acetaminophen [Tylenol] 650 mg PO NOW STA
Potassium Chloride [KCl] 40 meq PO NOW STA
02/25/24 10:50
Wound Culture [Wound/Abscess/Other Culture] Urgent
NEREYDA Source: Abscess
Specimen Description:
Date Specimen was Collected: 02/25/24
Time Specimen was Collected: 10:49
Comment: R ankle
02/25/24 11:18
Vancomycin 1 Gram/200 ml [Vancocin] 1 gram in 200 ml IV NOW
02/25/24 11:20
0.9% Sodium Chloride 500 ml [Nss] 500 ml IV BOLUS
02/25/24 11:22
Wound Culture [Wound/Abscess/Other Culture] Urgent
NEREYDA Source: Abscess
Specimen Description:
Date Specimen was Collected: 02/25/24
Time Specimen was Collected: 11:20
Comment: Superior R ankle abscess
02/25/24 12:17
Admit/Transfer Patient As Directed
Co-Sign Provider:
Level of Care: Inpatient admission
Assign to:: Medical/Surgical
Physician / Group: [email or web address]
Diagnosis: Rt distal Gomez cellulitis
Reason for Hospitalization: Rt ankle cellulitis
Expected length of stay greater than two midnights?: Yes
ELOS- Estimated Length of Stay in days: 2
I certify the patient meets the requirements for IP care: Yes
02/25/24 12:20
Code Status As Directed
Resuscitation Status: Full Code
02/25/24 14:00
Lactate Level [Lactic Acid] Routine
02/25/24 14:55
Acetaminophen [Tylenol] 1,000 mg PO Q6H PRN
Albuterol [ProAIR HFA INHALER] 2 puff INH R Q4HPRN PRN
Bisacodyl [Dulcolax] 10 mg RECTAL [id number] PRN
Docusate W/Senna [Senokot-S] 1 tablet PO BIDPRN PRN
Polyethylene Glycol Powder [Miralax] 17 grams PO DAILYPRN PRN
VANCOMYCIN Pharmacy to Dose [VANCOCIN Pharmacy to Dose] 1 each Pharmacy To Prepare [Call Pharmacy To Prepare] 0 ml IV PER PROTOCOL
02/25/24 14:55
DIETARY CONSULT Routine
Reason for Consult: hypaoalbuminemia , BMI 18
Activity As Directed
Activity Level: With Assistance
Vital Signs As Directed
Frequency: Per unit guidelines
DX Deep Vein Thrombosis Video Routine
02/25/24 18:00
Enoxaparin Sodium [Lovenox] 40 mg SC QPM
02/25/24 20:00
Levetiracetam [Keppra] 500 mg PO BID
Metoprolol Xl [Toprol Xl] 25 mg PO BID
Quetiapine Fumarate [Seroquel] 25 mg PO BID
02/25/24 22:00
Donepezil [Aricept] 5 mg PO HS
02/26/24 06:00
Basic Metabolic Panel IN AM
Complete Blood Count/No Diff IN AM
02/26/24 08:00
Amlodipine [Norvasc] 5 mg PO DAILY
Cetirizine HCl [Zyrtec] 10 mg PO DAILY
Losartan [Cozaar] 50 mg PO DAILY
Pantoprazole [Protonix] 40 mg PO DAILY
Sertraline HCl [Zoloft] 100 mg PO DAILY
fluticasone propionate 2 spray NASAL DAILY
Abnormal Lab Results
02/25/24
09:53
RBC 3.86 L 10^6/uL
(4.20-5.40)
Hgb 11.8 L g/dL
(12.0-16.0)
Hct 36.1 L %
(37.0-47.0)
MCHC 32.7 L g/dL
(33.0-37.0)
RDW 15.5 H %
(11.5-14.5)
Abs Immat Gran (auto) 0.1 H 10^3/uL
(0-0.05)
Absolute Neuts (auto) 7.7 H 10^3/uL
(1.4-6.5)
Immature Gran % 1.2 H %
(0-0.5)
Neutrophils % 81.1 H %
(42.2-75.2)
Lymphocytes % 12.1 L %
(20.5-51.1)
Potassium 3.1 L mmol/L
(3.5-5.1)
Carbon Dioxide 33 H mmol/L
(22-30)
Glucose 199 H mg/dl
(70-99)
Lactic Acid 2.7 H mmol/L
(0.7-2.0)
Calcium 8.3 L mg/dl
(8.4-10.2)
Alkaline Phosphatase 153 H U/L
(38-126)
Total Protein 5.2 L g/dl
(6.3-8.2)
Albumin 2.7 L g/dl
(3.5-5.0)
02/25/24 09:53
02/25/24 09:53
Vital Signs
Initial and Last Documented VS:
Initial Vital Signs
Temp Pulse Resp BP Pulse Ox
97.4 F 75 17 121/74 96
02/25/24 09:44 02/25/24 09:44 02/25/24 09:44 02/25/24 09:44 02/25/24 09:44
Last Documented Vital Signs
Temp Pulse Resp BP Pulse Ox
98.1 F 70 16 151/71 97
02/25/24 14:53 02/25/24 15:08 02/25/24 15:08 02/25/24 14:53 02/25/24 15:08
Procedures
Incision/Drainage/Joint Aspiration
Right Lateral Ankle:
Anethesia: 1% Lidocaine with Epi
Preparation: cleaned with Betadine
Type of procedure: incise and drain
Nature of site: abscess
Description of abscess: greater than 3cm
Loculations broken up: Yes
How much fluid was obtained?: large amount
Fluid description: purulent
Treatment: left open for drainage
MDM/Problems Addressed
Differential Diagnosis Includes:
83yoF here with R ankle redness/swelling that is not improving on Keflex. Hx of dementia and history is limited. She denies fevers and is afebrile on arrival. Remainder of vitals stable. She is non-toxic appearing. On exam, there is evidence of
cellulitis to the lateral ankle. There are also 2 areas of swelling and fluctuance consistent with abscesses. No crepitus or pain out of proportion. Differential diagnosis includes but is not limited to: Cellulitis, abscess, sepsis, no clinical
evidence of NSTI
Initial ED plan: Check CBC, CMP, lactate, and right ankle x-rays. Will perform I&D.
*Critical Care Note
Total Time (30-74mins, 75-104mins- exclusive of procedures): Not Applicable
Update Note
Update Note:
White count is normal although lactate is elevated at 2.7. X-rays are negative for acute osseous abnormality and there is no soft tissue gas. Both areas of fluctuance were incised with return of a large amount of purulence. Drainage from both of
the abscesses were sent for wound culture. Clinical concern for MRSA. IV vancomycin ordered and she was admitted for further management.
ED Attending Note
-
Portions of this chart may have been created with voice recognition software.� Occasional wrong word or��sound alike� substitutions may have occurred due to the inherent limitations of voice recognition software.
Discharge Plan
Departure
Patient Disposition: Admit
Date of Disposition: 02/25/24
Time of Disposition: 11:22
Presentation/result/management discussed w/ accepting MD/DO: Hospitalist
Discharge Problem:
Abscess or cellulitis of ankle
Interventions
Interventions:
*Risk Screen - Suicide Last Done: 02/25/24 14:54
*General Assessment Last Done: 02/25/24 09:48
*Neglect/Abuse Screening Last Done: 02/25/24 09:50
ED- Fall Risk Assessment Last Done: 02/25/24 09:49
*ED COVID-19 Vaccine History Last Done: 02/25/24 14:54
*Nursing Disposition Last Done: 02/25/24 14:36
ED-Skin Assessment Last Done: 02/25/24 09:49
Discharge Date and Time
Discharge Date/Time: 02/25/24 14:36
[2024-02-25] MEDS: VANCOCIN 200 IV (11:41)
[2024-02-25] MEDS: NSS 500 IV (11:41)
--- NOTE | 2024-02-25 12:13 | HPS.HSE ---
Family Physician
-
Family Physician: Stanislaw Alonso
Chief Complaint
-
right ankle redness and swelling.
History of Present Illness
I could not get any information from the patient has dementia
Information gathered by chart review and speaking with the ER staff.
HPI
83F with Dementia, Res of [facility] with HX metastatic carcinoid tumor, essential hypertension, anxiety/depression seen at ER;
- evaluation of right ankle redness and swelling.
- she is unsure how long her wound has been there.
- Per note, she was started on Keflex twice daily 3 days ago without improvement.
- Per EMS reports, the nursing facility stated that her redness and swelling were worsening which prompted ER visit today.
Medical History
Past Medical History
Past Medical History: Reports Cancer (Lungs Ca, brain mets), Dementia, GERD, HTN and Hypercholesterolemia
Past Surgical History: Reports Gynocological (Tubal ligation) and Tonsilectomy
Social History
Unable to obtain full social history at this time due to: Dementia
Alcohol: None
Drug: None
Personal: Single
Living: Assisted Living
Employment: Retired
Family History
Family History: Not pertinent and Unable to Obtain
Allergies / Home Medications
Allergies reflects when Allergies were last updated in [employer].
Home Medications with original date entered in [employer]
Allergy/Medication List:
Allergies
Allergy/AdvReac Type Severity Reaction Status Date / Time
No Known Allergies Allergy Unverified 12/09/23 09:45
Home Medications
cetirizine 10 mg tablet 10 mg PO DAILY Allergies 07/14/23
fluticasone propionate 50 mcg/actuation nasal spray,suspension 1 spray intranasal DAILY Allergies 07/14/23
levetiracetam 500 mg tablet (Keppra) 500 mg PO BID #60 tabs 07/14/23
losartan 25 mg tablet 50 mg PO DAILY Blood Pressure 07/14/23
metoprolol succinate 25 mg tablet,extended release 24 hr (Toprol XL) 25 mg PO BID Blood Pressure 07/14/23
sertraline 25 mg tablet 50 mg PO DAILY Depression 07/14/23
acetaminophen 500 mg tablet 1,000 mg PO Q6H PRN pain 01/14/24
amlodipine 5 mg tablet 5 mg PO DAILY Blood Pressure 01/14/24
dexamethasone 2 mg tablet 2 mg PO DAILY Anti-Inflammatory 01/14/24
donepezil 5 mg tablet 5 mg PO HS Alzheimer's 01/14/24
pantoprazole 40 mg tablet,delayed release 40 mg PO DAILY Gastrointestinal Issue 01/14/24
dexamethasone 2 mg tablet 2 mg PO Q48H Anti-Inflammatory 01/15/24
MD record also lists 'Patient own med. Bascvellia 1.2g capsules. Take two capsules twice daily.'
Review of Systems
-
Unable to obtain full review of systems at this time due to: Dementia
Physical Exam
Vital Signs
Vital Signs
Temp Pulse Resp BP Pulse Ox
97.4 F 57 16 122/62 96
02/25/24 09:44 02/25/24 12:00 02/25/24 12:00 02/25/24 12:00 02/25/24 12:00
Physical Exam
General: Well Developed, Well Nourished and No Apparent Distress
HEENT: NormoCephalic, Moist mucous membranes and Atraumatic
Respiratory: Clear
Cardiac: S1/S2 and Regular Rhythm; No Murmur or Rub
GI: Soft, Non Tender, Non Distended and Normal Bowel Sounds; No Organomegaly
Rectal: Deferred by Provider
Skin: Other (distal Rt ankle redness and swelling in are uncovered by bandage dressing )
Neuro: Nonfocal/grossly intact
Laboratory Results
-
02/25/24 09:53
02/25/24 09:53
Laboratory Results
Lactic Acid 2.7 mmol/L (0.7-2.0) H 02/25/24 09:53
Total Bilirubin 0.8 mg/dl (0.2-1.3) 02/25/24 09:53
AST 21 U/L (14-36) 02/25/24 09:53
ALT 18 U/L (0-35) 02/25/24 09:53
Alkaline Phosphatase 153 U/L (38-126) H 02/25/24 09:53
Data Reviewed
-
Diagnostic Radiology: Report Reviewed by me
Lab Data: Labs Reviewed by me
Old Records: Reviewed
Impression/Plan
-
Vital Signs
Temp Pulse Resp BP Pulse Ox
97.4 F 57 16 122/62 96
02/25/24 09:44 02/25/24 12:00 02/25/24 12:00 02/25/24 12:00 02/25/24 12:00
Laboratory Tests
01/26/24 02/25/24
07:19 09:53
WBC 9.5
Hgb 12.5 11.8 L
Potassium 3.1 L
Carbon Dioxide 30 33 H
Creatinine 0.6
eGFR > 60.00
Glucose 199 H
Lactic Acid 2.7 H
Calcium 8.3 L
Albumin 2.7 L
WD Cx sent
XR Rt Ankle
Soft tissue: There is moderate soft tissue swelling about the lateral malleolus. There is mild soft tissue swelling about the medial malleolus. No radiopaque foreign bodies are noted. There is lucency in the soft tissues about the distal fibula and
distal medial malleolus probably due to edematous soft tissue change. Subcutaneous emphysema cannot be completely excluded.
Last hospitalist admission: Date of Admission: 01/24/24 - Date of Discharge: 01/26/24
Principal Discharge diagnosis : Acute pancreatitis, abnormal troponin
Chronic Discharge diagnosis : Metastatic carcinoid tumor, essential hypertension, anxiety/depression, dementia
ASSESSMENT & PLAN
Rt distal Gomez cellulitis; inadequate response to OP Tx with Keflex
- Hi LA of uncertain clinical significance , afebrile, nl WCC
- 12/09/23 POS MRSA screen per micro data
- NEG XR for FB, just soft tissue swelling
- Agree with IV vanco and observe clinical rsaponse
- f/u WD cx
Hypokalemia s/p PO KCL 40 x1
- f/u K in AM
Under weight suspect protein carolee malnutrition ; tea and toast diet ?
Hypoalbuminemia suspect Nutritional
Corrected Ca 9.3 for Albumin 2.7
BMI 18
- certified low vision therapist consult
Metastatic Carcinoid Tumor HX
HX evidence of bony , brain mets
- on MAINTENANCE SPECIALIST Keppra
- Follow-up with Oncologist at [place] after discharge.
Benign Hypertension
- Stable.
- Continue outpatient med regimen; Losartan, metoprolol, amlodipine
Anxiety / Depression
- stable
- Continue current medications; Quetiapine, sertraline
Dementia
- cont. Donepezil
DVT Prophylaxis: SCDs
Code Status: Full
IP MS
--- NOTE | 2024-02-25 16:39 | PHA.VAN.IN ---
Assessment
- Assessment
Renal Function: Appears similar to baseline
Historical Micro: History of MRSA infection (01/17/24 08 Nose- MRSA confirmed)
AUC Dosing Plan
- Dosing Variables
Dosing Weight (kg): 45.5
Dosing CrCl (ml/min): 48
Vd coefficient (L/kg): 0.7
Patient weighs 39.5kg BMI<18.5, used IBW 45.5kg for dosing
- Empiric Dosing
Initial / Loading Dose: Vanco loading 1000mg at 02/25/24 1141
Maintenance Regimen: Vanco 750mg Q24H starting at 02/26/24 0600
Estimated AUC (mcg*h/mL): 544
Estimated Peak (mcg*h/mL): 36
Estimated Trough (mcg/ml): 13
Estimated Half Life (H): 15.67
- Monitoring
No levels ordered at this time: Consider in the next few days
Pharmacokinetics Vancomycin I
- -
Patient Age: 83
Patient Sex: Female
Vancomycin Day #: 1
Indication: Skin And Soft Tissue
Requesting Provider: Brittanie Osborne
Pertinent Antimicrobial Allergies:
No known abx allergies
Height / Weight:
Height 4 ft 11 in
Actual Weight 39.463 kg
IBW in k.5
Pertinent Past Medical History: Cancer
- Vital Signs / Lab Results
Temp Pulse Resp BP Pulse Ox
98.1 F 70 16 151/71 97
02/25/24 14:53 02/25/24 15:08 02/25/24 15:08 02/25/24 14:53 02/25/24 15:08
Lab Results - Hematology
02/25/24
09:53
WBC 9.5
Lab Results - Chemistry
02/25/24
09:53
BUN 17
Creatinine 0.6
Estimated Creat Clear 48
Albumin 2.7 L
02/25/24
09:53
Lactic Acid 2.7 H
Microbiology Results
02/25/24 11:22 Gram Stain - Preliminary
Abscess
02/25/24 10:50 Gram Stain - Preliminary
Abscess
[2024-02-25] MEDS: LOVENOX 30 MG SC (17:47)
[2024-02-25] MEDS: SEROQUEL 37.5 MG PO (19:25)
[2024-02-25] MEDS: KEPPRA 500 MG PO (19:25)
[2024-02-25] MEDS: TOPROL XL 25 MG PO (19:27)
[2024-02-25 20:47] LABS: Lactic Acid 2.1 mmol/L (0.7-2.0)
[2024-02-25] MEDS: ARICEPT 5 MG PO (21:15)
[2024-02-25] MEDS: TYLENOL 1000 MG PO (21:23)
[2024-02-26] MEDS: TYLENOL 1000 MG PO ×3 (04:17→20:23)
[2024-02-26 04:19] LABS: Hemoglobin 10.4 g/dL (12.0-16.0); Mean Corp Hgb Conc. 33.5 g/dL (33.0-37.0); Mean Corpuscular Volume 92.3 fL (81.0-99.0); Mean Platelet Volume 8.7 fL (7.4-10.4); Platelet Count 261 10^3/uL (130-400); Red Blood Cell Count 3.36 10^6/uL (4.20-5.40); Red Cell Dist. Width 15.6 % (11.5-14.5); White Blood Cell Count 9.4 10^3/uL (4.8-10.8)
[2024-02-26 04:38] LABS: Blood Urea Nitrogen 15 mg/dl (7-17); Calcium 8.1 mg/dl (8.4-10.2); Carbon Dioxide 31 mmol/L (22-30); Chloride 105 mmol/L (98-107); Estimated Creatinine Clearance 45 ml/min; Glucose 93 mg/dl (70-99); Lactic Acid 1.1 mmol/L (0.7-2.0); Potassium 3.5 mmol/L (3.5-5.1); Sodium 139 mmol/L (135-145); eGFR > 60.00
[2024-02-26] MEDS: VANCOCIN 150 IV (05:24)
[2024-02-26] MEDS: FLUSH (NSS) 2 FLUSH IV (05:25)
[2024-02-26 07:15] VITALS: BP 131/63
[2024-02-26] MEDS: ZYRTEC 10 MG PO (08:42)
[2024-02-26] MEDS: TOPROL XL 25 MG PO ×2 (08:42→20:21)
[2024-02-26] MEDS: SEROQUEL 37.5 MG PO ×2 (08:42→20:21)
[2024-02-26] MEDS: KEPPRA 500 MG PO ×2 (08:42→20:23)
[2024-02-26] MEDS: COZAAR 50 MG PO (08:42)
[2024-02-26] MEDS: PROTONIX 40 MG PO (08:42)
[2024-02-26] MEDS: ZOLOFT 100 MG PO (08:42)
[2024-02-26] MEDS: NORVASC 5 MG PO (08:44)
--- NOTE | 2024-02-26 10:09 | PHA.VAN.FU ---
Vancomycin Assessment / Plan
- Assessment
Renal Function: SCR Decreasing
WBC's are: Stable
In the past 24 hrs, patient has been: Afebrile
- Dosing Plan
Continue: Vanc 750mg IV q24H
- Monitoring Plan
No level(s) ordered at this time: Consider levels after 1/7 dose.
- Follow Up
Pharmacy will continue to follow.
Vancomycin Follow UP
- -
Patient Age: 83
Patient Sex: Female
Vancomycin Day #: 2
Indication: Skin And Soft Tissue
Requesting Provider: Brittanie Osborne
Pertinent Antimicrobial Allergies:
No known abx allergies
Height / Weight:
Height 4 ft 11 in
Actual Weight 39.463 kg
IBW in k.5
Pertinent Past Medical History: Cancer
- Vital Signs / Lab Results
Temp Pulse Resp BP Pulse Ox
98.2 F 62 22 131/63 96
02/26/24 07:15 02/26/24 07:15 02/26/24 07:15 02/26/24 07:15 02/26/24 07:15
Lab Results - Hematology
02/25/24 02/26/24
09:53 04:05
WBC 9.5 9.4
Lab Results - Chemistry
02/25/24 02/26/24
09:53 04:05
BUN 17 15
Creatinine 0.6 0.5 L
Estimated Creat Clear 48 45
Albumin 2.7 L
02/25/24 02/25/24 02/26/24
09:53 20:22 04:05
Lactic Acid 2.7 H 2.1 H 1.1
Microbiology Results
02/25/24 11:22 Wound Culture - Preliminary
Abscess Staphylococcus aureus
Gram Stain - Preliminary
02/25/24 10:50 Wound Culture - Preliminary
Abscess Staphylococcus aureus
Gram Stain - Preliminary
--- NOTE | 2024-02-26 12:08 | W.PN.HOSP.TC ---
Today's Communication/Plan
-
Monitor vital signs see plan
Continue with IV antibiotics
PT/OT
Dementia, monitor for behavioral changes
Wound care
Assessment / Plan
Assessment / Plan
General: Well Developed, Well Nourished and No Apparent Distress
HEENT: NormoCephalic, Moist mucous membranes and Atraumatic
Respiratory: Clear
Cardiac: S1/S2 and Regular Rhythm; No Murmur or Rub
GI: Soft, Non Tender, Non Distended and Normal Bowel Sounds; No Organomegaly
Rectal: Deferred by Provider
Skin: Other (distal Rt ankle redness and swelling in are uncovered by bandage dressing )
Neuro: Nonfocal/grossly intact
Rt distal Gomez cellulitis; inadequate response to OP Tx with Keflex
- Hi LA of uncertain clinical significance , afebrile, nl WCC
- 12/09/23 POS MRSA screen per micro data
ED did wound culture on admission growing staph
- NEG XR for FB, just soft tissue swelling
Continue with IV vanc
- f/u WD cx
Hypokalemia
Resolved
Under weight suspect protein carolee malnutrition
Hypoalbuminemia suspect Nutritional
Corrected Ca 9.3 for Albumin 2.7
BMI 18
- rubber compounder consult
Lactic acidosis
Resolved
Metastatic Carcinoid Tumor HX
HX evidence of bony , brain mets
- on PLUCK TRIMMER Keppra
- Follow-up with Oncologist at [place] after discharge.
Benign Hypertension
- Stable.
- Continue outpatient med regimen; Losartan, metoprolol, amlodipine
Anxiety / Depression
- stable
- Continue current medications; Quetiapine, sertraline
Dementia
Monitor for behavioral changes
- cont. Donepezil
DVT Prophylaxis: SCDs,heparin
Code Status: Full
Anticipated Discharge: 24 - 48 hours
Subjective/Interval History
-
Date of Service: February 26, 2024
Denies pain
Objective Data
-
Labs:
Laboratory Results
02/26/24
04:05
WBC 9.4
Hgb 10.4 L
Hct 31.0 L
Plt Count 261
Sodium 139
Potassium 3.5
Chloride 105
Carbon Dioxide 31 H
BUN 15
Creatinine 0.5 L
Glucose 93
Calcium 8.1 L
Vital Signs:
Vital Signs
Temp Pulse Resp BP Pulse Ox
98.2 F 62 22 131/63 96
02/26/24 07:15 02/26/24 07:15 02/26/24 07:15 02/26/24 07:15 02/26/24 08:00
I&O
02/25/24 02/26/24 02/27/24
06:59 06:59 06:59
Intake Total 150 / 150
Balance 150 / 150
[2024-02-26 15:00] VITALS: BP 117/68; PULSE 66
[2024-02-26 15:20] VITALS: BP 118/61
[2024-02-26] MEDS: HEPARIN 5000 UNITS SC ×2 (17:31→23:11)
[2024-02-26] MEDS: ARICEPT 5 MG PO (20:23)
[2024-02-26 23:23] VITALS: BP 108/51
[2024-02-27] MEDS: TYLENOL 1000 MG PO ×3 (03:43→19:54)
[2024-02-27] MEDS: VANCOCIN 150 IV (05:49)
[2024-02-27 07:22] LABS: % Basophils 0.9 % (0-2); % Eosinophils 1.9 % (0-6); % Immature Granulocytes 2.2 % (0-0.5); % Lymphocytes 23.2 % (20.5-51.1); % Monocytes 6.6 % (1.7-9.3); % Neutrophils 65.2 % (42.2-75.2); Absolute Basophils 0.1 10^3/uL (0-0.2); Absolute Eosinophils 0.1 10^3/uL (0-0.7); Absolute Immature Granulocytes 0.2 10^3/uL (0-0.05); Absolute Lymphocytes 1.6 10^3/uL (1.2-3.4); Absolute Monocytes 0.5 10^3/uL (0.1-0.6); Absolute Neutrophils 4.5 10^3/uL (1.4-6.5); Hematocrit 31.3 % (37.0-47.0); Hemoglobin 10.6 g/dL (12.0-16.0); Mean Corp Hgb Conc. 33.9 g/dL (33.0-37.0); Mean Corpuscular Hgb 31.2 pg (27.0-31.0); Mean Corpuscular Volume 92.1 fL (81.0-99.0); Mean Platelet Volume 9.2 fL (7.4-10.4); Nucleated Red Blood Cells % 0 %; Platelet Count 279 10^3/uL (130-400); Red Cell Dist. Width 15.2 % (11.5-14.5)
[2024-02-27 07:29] VITALS: BP 126/71
[2024-02-27 07:29] LABS: Blood Urea Nitrogen 12 mg/dl (7-17); Carbon Dioxide 33 mmol/L (22-30); Chloride 102 mmol/L (98-107); Estimated Creatinine Clearance 45 ml/min; Glucose 98 mg/dl (70-99); Potassium 3.6 mmol/L (3.5-5.1); Sodium 137 mmol/L (135-145); eGFR > 60.00
[2024-02-27] MEDS: ZYRTEC 10 MG PO (08:04)
[2024-02-27] MEDS: ZOLOFT 100 MG PO (08:04)
[2024-02-27] MEDS: HEPARIN 5000 UNITS SC ×2 (08:05→15:53)
[2024-02-27] MEDS: NORVASC 5 MG PO (08:05)
[2024-02-27] MEDS: PROTONIX 40 MG PO (08:05)
[2024-02-27] MEDS: KEPPRA 500 MG PO ×2 (08:05→19:54)
[2024-02-27] MEDS: SEROQUEL 37.5 MG PO ×2 (08:06→19:54)
[2024-02-27] MEDS: TOPROL XL 25 MG PO ×2 (08:06→19:51)
[2024-02-27] MEDS: COZAAR 50 MG PO (08:06)
[2024-02-27 09:35] VITALS: BP 125/61; PULSE 73; O2SAT 95
--- NOTE | 2024-02-27 10:53 | WOUNDNOTE ---
RIGHT LATERAL ANKLE
--- NOTE | 2024-02-27 10:54 | WOUNDNOTE ---
[facility] RN note: Patient admitted with right lateral wound infection.
See H&P for complete history.
PMH: Patient resides in [place]. Dementia, MRSA, ex-smoker, HTN, lung cancer with brain mets.
Wound Location and type/assessment: Patient admitted with right lateral ankle wound. Incision and drainage completed in ER and cultures sent. Wound with some purulent drainage, tender to touch. Per RN, sacrum intact. Heels intact bilaterally.
Appetite: appears fair, low BMI 17
Pressure redistribution devices in place: Versa [employer]
Plan: Wound cleaned and local wound care as ordered. SALVATORE Pittman updated. Will follow as needed. Will confirm orders with hospitalist and update RN. Updated care plan and will follow as needed.
Note to case management of equipment requested for discharge:
Recommend follow up at wound care center upon discharge.
--- NOTE | 2024-02-27 11:07 | PHA.VAN.FU ---
Vancomycin Assessment / Plan
- Assessment
Renal Function: Stable
WBC's are: WNL
In the past 24 hrs, patient has been: Afebrile
- Dosing Plan
Continue: vancomycin 750 mg q24h
- Monitoring Plan
Peak Level: 02/27 2030 - after 4th total dose
Trough Level: 02/28 0530
- Follow Up
Pharmacy will continue to follow.
Vancomycin Follow UP
- -
Patient Age: 83
Patient Sex: Female
Vancomycin Day #: 3
Indication: Skin And Soft Tissue
Requesting Provider: Brittanie Osborne
Pertinent Antimicrobial Allergies:
No known abx allergies
Height / Weight:
Height 4 ft 11 in
Actual Weight 39.463 kg
IBW in k.5
Pertinent Past Medical History: Cancer
- Vital Signs / Lab Results
Temp Pulse Resp BP Pulse Ox
98.1 F 70 15 126/71 97
02/27/24 07:29 02/27/24 08:05 02/27/24 07:29 02/27/24 08:05 02/27/24 08:30
Lab Results - Hematology
02/25/24 02/26/24 02/27/24
09:53 04:05 05:46
WBC 9.5 9.4 7.0
Lab Results - Chemistry
02/25/24 02/26/24 02/27/24
09:53 04:05 05:46
BUN 17 15 12
Creatinine 0.6 0.5 L 0.6
Estimated Creat Clear 48 45 45
Albumin 2.7 L
02/25/24 02/25/24 02/26/24
09:53 20:22 04:05
Lactic Acid 2.7 H 2.1 H 1.1
Microbiology Results
02/25/24 11:22 Wound Culture - Final
Abscess Staph aureus MRSA
Gram Stain - Final
02/25/24 10:50 Wound Culture - Final
Abscess Staph aureus MRSA
Gram Stain - Final
--- NOTE | 2024-02-27 13:53 | W.PN.HOSP.TC ---
Today's Communication/Plan
-
Continue IV vancomycin
Follow CBC and temperature curve
Monitor leg clinically
Assessment / Plan
Assessment / Plan
#Purulent cellulitis of the RLE
-Failed outpatient treatment with Keflex; noted purulence at the wound today
-Has a positive MRSA screen on 12/09/2023; started on IV vancomycin here
-Does seem to be clinically improving, no fevers or leukocytosis, no systemic symptoms
-Wound culture in the ED growing MRSA, some purulence still noted on exam
-No signs of osteomyelitis on x-ray
-Continue IV vancomycin, plan for oral Bactrim at discharge
-Continue to trend CBC and temperature curve
-Will need 10+ days of antibiotic
#Underweight
#Hypoalbuminemia
-suspect protein carolee malnutrition, likely chronically malnourished with dementia
-BMI 18 here, 17.6 per most recent reading
-Dietitian consulted
#Metastatic Carcinoid Tumor
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
-Home medications include Keppra for seizure prophylaxis
-Follows with oncologist at [facility]
-No signs of carcinoid syndrome or right heart failure
#Benign Hypertension
-Home medications include losartan, metoprolol, amlodipine
-No known history of hypertensive systemic disease
-Blood pressure currently adequate
#Dementia
#Anxiety / Depression
-stable on Quetiapine, sertraline
-Monitor for worsening behavioral change
DVT prophylaxis: Sub Q heparin
Diet: No added salt
Code Status: Full
Anticipated Discharge: 24 - 48 hours
Subjective/Interval History
-
Date of Service: February 27, 2024
Seen and examined at the bedside. No acute events reported overnight. AFVSS this morning
Patient seems confused on why she is in the hospital. Mentions pain in her leg at the site of cellulitis
ROS otherwise limited from her dementia
Objective Data
-
Labs:
Laboratory Results
02/27/24
05:46
WBC 7.0
Hgb 10.6 L
Hct 31.3 L
Plt Count 279
Sodium 137
Potassium 3.6
Chloride 102
Carbon Dioxide 33 H
BUN 12
Creatinine 0.6
Glucose 98
Calcium 8.0 L
Vital Signs:
Vital Signs
Temp Pulse Resp BP Pulse Ox
98.1 F 70 15 126/71 97
02/27/24 07:29 02/27/24 08:05 02/27/24 07:29 02/27/24 08:05 02/27/24 08:30
I&O
02/26/24 02/27/24 02/28/24
06:59 06:59 06:59
Intake Total 150 / 150 240 / 240
Balance 150 / 150 240 / 240
Review of Systems
-
Unable to obtain full review of systems at this time due to: Dementia
Physical Exam
-
General: Well Developed, Well Nourished, No Apparent Distress and Pain
HEENT: Normocephalic, Atraumatic, Moist Mucous Membranes and Anicteric
Respiratory: Clear to Auscultation and Non Labored Respirations
Cardiac: Regular Rhythm and S1/S2; Negative Murmur, Rub or Gallop
GI: Soft, Nontender, Nondistended and Normal Bowel Sounds
Musculoskeletal: No Clubbing, No Cyanosis and No Edema
Skin: Warm, Dry, Normal Turgor and Other (Warm and erythematous patch of the right pretibial and lateral malleolus, with purulence from wound)
Neuro: Awake, Alert, Oriented and Nonfocal/Grossly Intact; Negative Tremors
Psych: Anxious
Data Reviewed
-
Labs: Labs Reviewed by me
[2024-02-27] MEDS: TORADOL 15 MG IV (14:15)
[2024-02-27 15:10] VITALS: BP 136/58
[2024-02-27] MEDS: ATARAX 10 MG PO (15:53)
[2024-02-27 17:04] VITALS: BP 120/63; PULSE 86; O2SAT 94
--- NOTE | 2024-02-27 17:27 | CM ---
Patient seen at bedside.
Dx: Rt distal LE cellulitis
PMH: dementia, essential htn, metastatic carcinoid tumor
On medsitter - IA completed
Spoke with Jemima at [facility] - Patient resides in [facility] (dementia unit)
PLOF: wheelchair - self propels
PT rec HH
Will review options
PCP: Stanislaw Alonso
Pharmacy: [facility]
PLAN: Discharge when stable, Mirela Ojeda, anticipate HH
[facility]
Report #: [phone]
Fax #: [phone]
[2024-02-27] MEDS: ARICEPT 5 MG PO (21:15)
[2024-02-27 23:39] VITALS: BP 114/50
[2024-02-28] MEDS: HEPARIN 5000 UNITS SC ×2 (01:00→09:02)
[2024-02-28] MEDS: TYLENOL 1000 MG PO (03:46)
[2024-02-28] MEDS: ATARAX 10 MG PO (03:47)
[2024-02-28] MEDS: VANCOCIN 150 IV (05:40)
[2024-02-28 05:48] LABS: % Basophils 0.6 % (0-2); % Eosinophils 1.1 % (0-6); % Immature Granulocytes 1.5 % (0-0.5); % Lymphocytes 17.4 % (20.5-51.1); % Monocytes 5.1 % (1.7-9.3); % Neutrophils 74.3 % (42.2-75.2); Absolute Basophils 0.1 10^3/uL (0-0.2); Absolute Eosinophils 0.1 10^3/uL (0-0.7); Absolute Immature Granulocytes 0.1 10^3/uL (0-0.05); Absolute Lymphocytes 1.6 10^3/uL (1.2-3.4); Absolute Monocytes 0.5 10^3/uL (0.1-0.6); Absolute Neutrophils 6.9 10^3/uL (1.4-6.5); Hematocrit 31.6 % (37.0-47.0); Hemoglobin 10.6 g/dL (12.0-16.0); Mean Corp Hgb Conc. 33.5 g/dL (33.0-37.0); Mean Corpuscular Volume 92.4 fL (81.0-99.0); Mean Platelet Volume 8.6 fL (7.4-10.4); Nucleated Red Blood Cells % 0 %; Platelet Count 267 10^3/uL (130-400); Red Blood Cell Count 3.42 10^6/uL (4.20-5.40); Red Cell Dist. Width 15.3 % (11.5-14.5); White Blood Cell Count 9.3 10^3/uL (4.8-10.8)
[2024-02-28 06:08] LABS: Blood Urea Nitrogen 18 mg/dl (7-17); Carbon Dioxide 30 mmol/L (22-30); Chloride 103 mmol/L (98-107); Estimated Creatinine Clearance 45 ml/min; Glucose 79 mg/dl (70-99); Potassium 3.5 mmol/L (3.5-5.1); Sodium 135 mmol/L (135-145); eGFR > 60.00
[2024-02-28 08:05] VITALS: BP 138/75
[2024-02-28 09:02] LABS: Vancomycin Peak 23.7 ug/ml (18-26)
[2024-02-28] MEDS: ZYRTEC 10 MG PO (09:03)
[2024-02-28] MEDS: COZAAR 50 MG PO (09:03)
[2024-02-28] MEDS: NORVASC 5 MG PO (09:04)
[2024-02-28] MEDS: TOPROL XL 25 MG PO (09:04)
[2024-02-28] MEDS: ZOLOFT 100 MG PO (09:04)
[2024-02-28] MEDS: PROTONIX 40 MG PO (09:04)
[2024-02-28] MEDS: KEPPRA 500 MG PO (09:05)
[2024-02-28] MEDS: SEROQUEL 37.5 MG PO (09:05)
--- NOTE | 2024-02-28 10:11 | PHA.VAN.FU ---
Vancomycin Assessment / Plan
- Assessment
Renal Function: Stable
WBC's are: WNL
In the past 24 hrs, patient has been: Afebrile
- Dosing Plan
Continue: Vanc 750mg Q24H
- Monitoring Plan
Peak Level: peak = 23.7 - will assess with trough in AM
Trough Level: 02/28 05:30
Monitoring Comments: levels drawn after 3rd maintenance dose
- Follow Up
Pharmacy will continue to follow.
Vancomycin Follow UP
- -
Patient Age: 83
Patient Sex: Female
Vancomycin Day #: 4
Indication: Skin And Soft Tissue
Requesting Provider: Brittanie Osborne
Pertinent Antimicrobial Allergies:
No pertinent antibiotic allergies
Height / Weight:
Height 4 ft 11 in
Actual Weight 39.463 kg
IBW in k.5
Pertinent Past Medical History: BMI ~17.6, Metastatic Carcinoid Tumor
- Vital Signs / Lab Results
Temp Pulse Resp BP Pulse Ox
97.8 F 75 16 138/75 96
02/28/24 08:05 02/28/24 09:04 02/28/24 08:05 02/28/24 09:04 02/28/24 08:05
Lab Results - Hematology
02/26/24 02/27/24 02/28/24
04:05 05:46 05:29
WBC 9.4 7.0 9.3
Lab Results - Chemistry
02/25/24 02/26/24 02/27/24
09:53 04:05 05:46
BUN 17 15 12
Creatinine 0.6 0.5 L 0.6
Estimated Creat Clear 48 45 45
Albumin 2.7 L
02/28/24
05:29
BUN 18 H
Creatinine 0.5 L
Estimated Creat Clear 45
Albumin
02/25/24 02/25/24 02/26/24
09:53 20:22 04:05
Lactic Acid 2.7 H 2.1 H 1.1
Microbiology Results
02/25/24 11:22 Wound Culture - Final
Abscess Staph aureus MRSA
Gram Stain - Final
02/25/24 10:50 Wound Culture - Final
Abscess Staph aureus MRSA
Gram Stain - Final
Therapeutic Drug Monitoring
Vancomycin Peak 23.7 ug/ml () 02/28/24 08:12
--- NOTE | 2024-02-28 11:30 | CM ---
Addendum entered by Siobhan Chambers 02/28/24 12:20:
1415 transport - updated Jemima at [facility]
Original Note:
tt from hospitalist regarding d/c
Called Jemima at [facility]. Will accept back in the [facility] (dementia unit)
PT rec HH - Jemima states the patient was with [facility] prior to hospital.
[facility] to [facility]. Called liaison Taina - [facility] accepted
Left message with patient sister PROMISE Hannah explained
PLAN: [facility] Unit with [facility]
Report #: [phone]
Fax #: [phone]
[facility] FAX #: [phone]
--- NOTE | 2024-02-28 11:55 | W.PN.HOSP.TC ---
Addendum entered and electronically signed by Teofilo Rincon DO 02/28/24 14:22:
CDI: Moderate protein calorie malnutrition secondary to dementia and chronically reduced oral intake
Original Note:
Today's Communication/Plan
-
Transition to oral Bactrim to complete 10-day course
Discharge to home health
Follow-up with PCP as OP
Assessment / Plan
Assessment / Plan
#Purulent cellulitis of the RLE
-Failed outpatient treatment with Keflex; noted purulence at the wound today
-Has a positive MRSA screen on 12/09/2023; started on IV vancomycin here
-Does seem to be clinically improving, no fevers or leukocytosis, no systemic symptoms
-Wound culture in the ED growing MRSA, some purulence still noted on exam
-No signs of osteomyelitis on x-ray; no signs of underlying abscess clinically
-Transition vancomycin to oral Bactrim to complete 10-day course of antibiotic
#Underweight
#Hypoalbuminemia
-suspect protein carolee malnutrition, likely chronically malnourished with dementia
-BMI 18 here, 17.6 per most recent reading
-Dietitian consulted
#Metastatic Carcinoid Tumor
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
-Home medications include Keppra for seizure prophylaxis
-Follows with oncologist at [facility]
-No signs of carcinoid syndrome or right heart failure
#Benign Hypertension
-Home medications include losartan, metoprolol, amlodipine
-No known history of hypertensive systemic disease
-Blood pressure currently adequate
#Dementia
#Anxiety / Depression
-stable on Quetiapine, sertraline
-Monitor for worsening behavioral change
DVT prophylaxis: Sub Q heparin
Diet: No added salt
Code Status: Full
Anticipated Discharge: Today
Subjective/Interval History
-
Date of Service: February 28, 2024
Seen and examined at the bedside. No acute events reported overnight. AFVSS this
Remains without leukocytosis or fevers. Right ankle appears clinically improved, trace purulence
History limited due to her advanced dementia
Objective Data
-
Labs:
Laboratory Results
02/28/24
05:29
WBC 9.3
Hgb 10.6 L
Hct 31.6 L
Plt Count 267
Sodium 135
Potassium 3.5
Chloride 103
Carbon Dioxide 30
BUN 18 H
Creatinine 0.5 L
Glucose 79
Calcium 8.0 L
Vital Signs:
Vital Signs
Temp Pulse Resp BP Pulse Ox
97.8 F 75 16 138/75 96
02/28/24 08:05 02/28/24 09:04 02/28/24 08:05 02/28/24 09:04 02/28/24 10:52
I&O
02/27/24 02/28/24 02/29/24
06:59 06:59 06:59
Intake Total 240 / 240 810 / 810
Balance 240 / 240 810 / 810
Review of Systems
-
Unable to obtain full review of systems at this time due to: Dementia
Physical Exam
-
General: Well Developed, No Apparent Distress, Comfortable and Other (Thin and frail)
HEENT: Normocephalic, Atraumatic, Moist Mucous Membranes and Anicteric
Respiratory: Clear to Auscultation and Non Labored Respirations
Cardiac: Regular Rhythm and S1/S2; Negative Murmur, Rub or Gallop
GI: Soft, Nontender, Nondistended and Normal Bowel Sounds
Skin: Warm, Dry, Normal Turgor and Other (Improved erythema, trace purulence to the skin overlying right lateral malleolus. No signs of fluctuance underlying abscess)
Neuro: Awake, Alert and Nonfocal/Grossly Intact; Negative Tremors
Psych: Calm
Data Reviewed
-
Labs: Labs Reviewed by me and Discussed with Nurse
--- NOTE | 2024-02-28 13:04 | PN.CDI ---
CDI
- -
CDI:
Physician Documentation Request
Admit Date: 02/25/24 12:37
Dear Doctor Sergey,
02/26 Cot Assembler Assessment: 'Per current clinical data pt with 2-13 lb weight loss; review of records shows wt of 94 lbs from 01-23-24 external medical summary; 87 lbs on 02-25-24 (pt appears to have lost 7 lbs, 7.4% wt change, ~1
month)-significant...With pt reproductive healthcare assistant assistance, RD able to observe appearance of mild orbital, some depression at temples (moderate), clavicle (moderate), visible ribs (moderate); calves (moderate). Due to these observations, pt meeting criteria
for moderate protein/calorie malnutrion (ASPEN/AND guidelines, chronic illness).'
02/27 Hospitalist PN: '#Underweight #Hypoalbuminemia
-suspect protein carolee malnutrition, likely chronically malnourished with dementia
-BMI 18 here, 17.6 per most recent reading'
Based on the above information and your assessment, which of the following most accurately represents the patient's nutritional status?
Moderate protein calorie malnutrition
Other (please specify)
Herman Criteria ([facility] Hospitalist 2017)
2 or more criteria must be present for either
non severe or severe malnutrition
Note that the criteria differs related to the
presence of an acute or chronic illness
Acute Illness Chronic Illness
Energy Intake Non Severe: <75% for >7 days Non Severe: <75% for >1 month
Severe: <50% for >5 days Severe: <75% for >1 month
Weight Loss Non Severe: 1-2% over 1 week Non Severe: 5% over 1 month
5% over 1 month 7.5% over 3 months
7.5% over 3 months 10% over 6 months
1 year N/A 20% over 1 year
Severe: >2% over 1 week Severe: >5% over 1 month
>5% over 1 month >7.5% over 3 months
>7.5% over 3 months >10% over 6 months
1 year N/A >20% over 1 year
Body Fat Non Severe: Mild Decrease Non Severe: Mild Loss
Severe: Moderate Decrease Severe: Severe Loss
Muscle Mass Non Severe: Mild Decrease Non Severe: Mild Loss
Severe: Moderate Decrease Severe: Severe Loss
Fluid Accumulation Non Severe: Mild Accumulation Non Severe: Mild Accumulation
Severe: Moderate to severe Severe: Moderate to severe
accumulation accumulation
Reduced It Assistant Strength Non Severe: N/A Non Severe: N/A
Severe: Measurably reduced Severe: Measurably reduced
Additional criteria that can be used to Determine if Mild or Moderate Malnutrition (Merck Manual 2018)
Mild Moderate Severe
Albumin gm/dl <3.0 gm/dl <2.5 gm/dl <2.0 gm/dl
Pre Albumin mg/dl <15 gm/dl <10 mg/dl <5.0 mg/dl
BMI <18.5 <17 <16
Use of terms such as suspected, likely, concern for, or probable (associated with a specific diagnosis that is being evaluated, monitored, or treated as if it exists) are acceptable and can be coded in the inpatient setting, when documented at the
time of discharge.
Thank you,
Marge Bosch RN, BSN
CDI Specialist
Available via [place] text
Please use your independent medical judgment in providing your response.
[2024-02-28 14:06] VITALS: BP 131/66
--- NOTE | 2024-02-28 15:30 | W.DCSUMMARY ---
Discharge Summary
Discharge Data
Date of Admission: 02/25/24
Date of Discharge: 02/28/24
-
Pending Results: No
Hospital Course
83-year-old female with advanced dementia, metastatic carcinoid tumor with brain mets on seizure prophylaxis, GERD, HTN, HLD that presented to the hospital with pain and redness to the right lower extremity that increased while on Keflex. Did
receive 2 to 3 days of Keflex prior to coming to the hospital. Exam on arrival consistent with purulent cellulitis. Wound cultures taken came back positive for MRSA. Was treated with IV vancomycin in the hospital with clinical improvement. Did
not have any leukocytosis nor fever throughout hospitalization. Did not have any underlying signs of abscess nor systemic infection. She was transitioned from IV vancomycin to oral Bactrim DS to complete 10-day course of antibiotics. Was provided
follow-up with wound care center for management of her distal right lower extremity wound at the site of her cellulitis.
Discharge Plan
-
Patient Disposition: Home with Home Care
Discharge Diagnosis/Procedures: MRSA cellulitis
Condition: Fair
Diet: No restrictions
Activity: As tolerated
Driving Restrictions: No driving
Bathing Restrictions: None
Blood Work: None
Other Services: PT and OT
Activity Restrictions/Additional Instructions:
Wound Care Instructions Right Lateral Ankle- Clean with normal saline or soap and water. Apply alginate and silicone border foam. Change daily and PRN drainage.
Encourage protein rich foods
Follow up at wound care center call for an appointment.
Posthospital follow-up
Should have follow-up appointment with family physician/primary care doctor within 1 to 2 weeks of discharge from the hospital to follow-up.
Instructions: Cellulitis (skin infection) in adults - Discharge instructions
Referrals:
Stanislaw Alonso MD [Family Provider] -
Additional Discharge Medication Instructions: Take Bactrim DS every 12 hours for 7 days after discharge to complete 10 days total of antibiotic
Prescriptions:
New
sulfamethoxazole-trimethoprim [Bactrim DS] 800-160 mg tablet
1 tab PO Q12H 7 Days Qty: 14 0RF
Continued
cetirizine 10 mg Tablet
10 mg PO DAILY
metoprolol succinate [Toprol XL] 25 mg Tablet Extended Release 24 Hr
25 mg PO BID
fluticasone propionate 50 mcg/actuation [place],Suspension
2 spray INTRANASAL DAILY
donepezil 5 mg Tablet
5 mg PO HS
amlodipine 5 mg Tablet
5 mg PO DAILY
acetaminophen 500 mg Tablet
1,000 mg PO Q6HPRN PRN (Reason: mild pain)
pantoprazole 40 mg Tablet,Delayed Release (Dr/Ec)
40 mg PO DAILY
albuterol sulfate 90 mcg/actuation Hfa Aerosol Inhaler
2 puff INHALATION R Q4HPRN PRN (Reason: copd)
losartan 50 mg Tablet
50 mg PO DAILY
Anti-Itch (menthol-camphor) 0.5-0.5 % Lotion
1 applic TOPICAL BID
Rx Instructions:
apply to affected areas
levetiracetam [Keppra] 500 mg tablet
500 mg PO BID Qty: 60 0RF
quetiapine 25 mg Tablet
37.5 mg PO BID
sertraline 100 mg Tablet
100 mg PO DAILY
Discharge Orders:
Discharge Patient (As Directed); Ordered 02/28/24
Ordered By: Teofilo Rincon
Discharge Date and Time
Discharge Date/Time: 02/28/24 14:42
Print Language: UGANDAN
== END 2024-02-28 14:42 | disposition home health service (06) | DRG 603 ==
LOC: 2 NORTH 12:37
PROVIDERS: Internal Medicine; Physician Assistant; ADMITTING PHYSICIAN Internal Medicine; ATTENDING PHYSICIAN Internal Medicine; EMERGENCY PHYSICIAN Emergency Medicine; FAMILY PHYSICIAN Family Medicine
DX: L03.115 Cellulitis of right lower limb (principal); F03.93 Unspecified dementia, unspecified severity, with mood disturbance; F03.94 Unspecified dementia, unspecified severity, with anxiety; C79.31 Secondary malignant neoplasm of brain; C79.51 Secondary malignant neoplasm of bone; E44.0 Moderate protein-calorie malnutrition; Z68.1 Body mass index [BMI] 19.9 or less, adult; C7A.090 Malignant carcinoid tumor of the bronchus and lung; K21.9 Gastro-esophageal reflux disease without esophagitis; J44.9 Chronic obstructive pulmonary disease, unspecified; I10 Essential (primary) hypertension; E87.6 Hypokalemia; E88.09 Other disorders of plasma-protein metabolism, not elsewhere classified; Z79.899 Other long term (current) drug therapy; Z87.891 Personal history of nicotine dependence; B95.62 Methicillin resistant Staphylococcus aureus infection as the cause of diseases classified elsewhere; E78.00 Pure hypercholesterolemia, unspecified
CPT/HCPCS: 10060; 73610; 80048; 80053; 80202; 83605; 85025; 85027; 87070; 87147; 87186; 87205; 96365; 97161; 97166; 97530; 99284

== ENCOUNTER → 2024-07-26 09:28 | Outpatient (REF) | payer OTHER, SELFPAY ==
[2024-07-26 10:55] LABS: % Basophils 1.2 % (0-2); % Eosinophils 4.6 % (0-6); % Immature Granulocytes 0.2 % (0-0.5); % Lymphocytes 30.7 % (20.5-51.1); % Monocytes 8.4 % (1.7-9.3); % Neutrophils 54.9 % (42.2-75.2); Absolute Basophils 0.1 10^3/uL (0-0.2); Absolute Eosinophils 0.2 10^3/uL (0-0.7); Absolute Lymphocytes 1.6 10^3/uL (1.2-3.4); Absolute Monocytes 0.4 10^3/uL (0.1-0.6); Absolute Neutrophils 2.9 10^3/uL (1.4-6.5); Hematocrit 38.7 % (37.0-47.0); Hemoglobin 12.5 g/dL (12.0-16.0); Mean Corp Hgb Conc. 32.3 g/dL (33.0-37.0); Mean Corpuscular Hgb 28.8 pg (27.0-31.0); Mean Corpuscular Volume 89.2 fL (81.0-99.0); Mean Platelet Volume 10.3 fL (7.4-10.4); Nucleated Red Blood Cells % 0 %; Platelet Count 272 10^3/uL (130-400); Red Blood Cell Count 4.34 10^6/uL (4.20-5.40); Red Cell Dist. Width 13.3 % (11.5-14.5); White Blood Cell Count 5.2 10^3/uL (4.8-10.8)
[2024-07-26 11:10] LABS: ALT (SGPT) < 10 U/L (0-35); AST (SGOT) 19 U/L (14-36); Albumin 3.9 g/dl (3.5-5.0); Alkaline Phosphatase 87 U/L (38-126); Blood Urea Nitrogen 14 mg/dl (7-17); Calcium 9.6 mg/dl (8.4-10.2); Carbon Dioxide 30 mmol/L (22-30); Chloride 107 mmol/L (98-107); Glucose 104 mg/dl (70-99); Potassium 3.7 mmol/L (3.5-5.1); Sodium 143 mmol/L (135-145); Total Bilirubin 0.7 mg/dl (0.2-1.3); Total Protein 6.7 g/dl (6.3-8.2); eGFR > 60.00
[2024-07-26 16:40] LABS: Urine Albumin Negative (Neg - Trace); Urine Bilirubin Negative (Negative); Urine Character Clear (Clear); Urine Color Yellow; Urine Glucose Negative (Negative); Urine Ketone Negative (Negative); Urine Leukocyte 1+ (Negative); Urine Nitrite Negative (Negative); Urine Occult Blood Negative (Negative); Urine Urobilinogen Negative (Neg - 1+)
[2024-07-26 16:50] LABS: Urine Red Blood Cell 0-2 /HPF (0-2)
[2024-07-26 16:51] LABS: Urine Bacteria Many (Negative); Urine Calcium Oxalate Crystals Seen
== END ==
LOC: OLABMERCHI 09:28
PROVIDERS: ATTENDING PHYSICIAN Hospitalist
DX: N39.0 Urinary tract infection, site not specified (principal); R30.0 Dysuria; I10 Essential (primary) hypertension; J44.9 Chronic obstructive pulmonary disease, unspecified; F03.90 Unspecified dementia, unspecified severity, without behavioral disturbance, psychotic disturbance, mood disturbance, and anxiety
CPT/HCPCS: 36415; 80053; 81003; 81015; 85025; 87077; 87086; 87088; 87186

== ENCOUNTER 2024-11-03 17:14 | Emergency (ER) | payer OTHER, SELFPAY ==
[2024-11-03 17:17] VITALS: BP 195/94
[2024-11-03 17:44] LABS: Hematocrit 37.7 % (37.0-47.0); Hemoglobin 12.1 g/dL (12.0-16.0); Mean Corp Hgb Conc. 32.1 g/dL (33.0-37.0); Mean Corpuscular Volume 91.1 fL (81.0-99.0); Nucleated Red Blood Cells % 0 %; Platelet Count 247 10^3/uL (130-400); Red Cell Dist. Width 13.5 % (11.5-14.5)
[2024-11-03 18:12] LABS: ALT (SGPT) 12 U/L (0-35); AST (SGOT) 20 U/L (14-36); Albumin 4.0 g/dl (3.5-5.0); Alkaline Phosphatase 84 U/L (38-126); Blood Urea Nitrogen 16 mg/dl (7-17); Calcium 9.0 mg/dl (8.4-10.2); Carbon Dioxide 29 mmol/L (22-30); Chloride 107 mmol/L (98-107); Glucose 150 mg/dl (70-99); Potassium 3.9 mmol/L (3.5-5.1); Sodium 140 mmol/L (135-145); Total Protein 6.9 g/dl (6.3-8.2); eGFR > 60.00
[2024-11-03 18:14] LABS: Troponin I < 0.012 ng/ml
[2024-11-03 19:05] LABS: Glucose - Point of Care 94 mg/dl (70-99)
[2024-11-03 21:29] VITALS: BP 188/82
--- NOTE | 2024-11-03 23:32 | ED.GENMED ---
History of Present Illness
General
Chief Complaint: Breathing Problem
Source: patient and family (sister)
Exam Limitations: none
Time Seen by Provider: 11/03/24 18:26
Nursing documentation reviewed up to this point in time: agreed with
History of Present Illness
History of Present Illness:
Patient to ED accompanied by sister for report of SOB. Patient resides at [facility] but spent the past few days at her sisters home. SIster reports patient seems more SOB with activity than is typical for her. SHe has a history of COPD and
'slow growing' Lung CA. SHe is not prescribed home O2. No fever/chills, recent illness. Denies any cough, cp/pressure.
Past History
Past History
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
Social History
Tobacco: Former smoker
Personal:
Living: assisted living (Memory care unit)
Family History
Family History: Other (Noncontributory)
Review of Systems
Review of Systems
Allergies reviewed?: Yes
All Other Systems: ROS reviewed and negative except as documented in HPI and ROS
Constitutional: Reports no symptoms
EENT: Reports no symptoms
Respiratory: Reports trouble breathing
Cardiac: Reports no symptoms
ABD/GI: Reports no symptoms
: Reports no symptoms
Musculoskeletal: Reports no symptoms
Skin: Reports no symptoms
Neurological: Reports no symptoms
Psychiatric: Reports no symptoms
Phy Exam
General Physical Exam
General Presentation: well appearing and no apparent distress
General age: appears stated age
General Skin: warm and dry
General Habitus: normal
General Mental: alert
Cardiovascular Exam
Cardiovascular Exam: regular rate/rhythm
Pulmonary Exam
Pulmonary Exam: lungs clear, no respiratory distress (Pulse ox 96% RA) and chest non tender
Oxygen Status: room air
Gastrointestinal Exam
Gastrointestinal Exam: normal bowel sounds, non tender and soft
Musculoskeletal Exam
Musculoskeletal Exam: full ROM
Skin Exam
Skin Exam: normal color, warm/dry and no rash
Psychiatric Exam
Psychiatric Exam: normal mood/affect
Scores
Heart Failure Risk
Heart Failure Risk Score: Not Applicable
Course
Orders/Labs/Results
Orders:
Orders
11/03/24 17:15
Electrocardiogram (*1) Urgent
Reason for Study: Shortness of Breath
EKG- Treatment ONCE
11/03/24 17:30
Complete Blood Count/With Diff Urgent
Comprehensive Metabolic Panel Urgent
NT-proBNP Urgent
Troponin I Urgent
11/03/24 18:26
CR Chest - 2 Views Urgent
Comment:
Reason For Exam: sob
Abnormal Lab Results
11/03/24
17:30
RBC 4.14 L 10^6/uL
(4.20-5.40)
MCHC 32.1 L g/dL
(33.0-37.0)
Absolute Neuts (auto) 7.5 H 10^3/uL
(1.4-6.5)
Absolute Monos (auto) 0.8 H 10^3/uL
(0.1-0.6)
Neutrophils % 77.7 H %
(42.2-75.2)
Lymphocytes % 12.1 L %
(20.5-51.1)
Glucose 150 H mg/dl
(70-99)
11/03/24 17:30
11/03/24 17:30
Vital Signs
Initial and Last Documented VS:
Initial Vital Signs
Temp Pulse Resp BP Pulse Ox
98.6 F 78 20 195/94 94
11/03/24 17:17 11/03/24 17:17 11/03/24 17:17 11/03/24 17:17 11/03/24 17:17
Last Documented Vital Signs
Temp Pulse Resp BP Pulse Ox
98.6 F 77 14 188/82 97
11/03/24 17:17 11/03/24 21:29 11/03/24 21:29 11/03/24 21:29 11/03/24 23:36
*Radiology
Radiology exam reviewed: radiology read reviewed
*Pulse Oximetry
SaO2: 97
Oxygen Mode of Delivery: Room air
Patient hypoxic: no
*Critical Care Note
Total Time (30-74mins, 75-104mins- exclusive of procedures): Not Applicable
Update Note
Update Note:
Patient brought to ED by sister who is concerned about increasing LAUREANO. Known history of COPD and lung CA. VSS, she remains afebrile. CXR report with acute findings. Pulse ox stable at 95%. Patient in no visible distress. Labs stable, no
concerning findings. WIll discharge back to [place]. She will followupw ith her glass tube bender on Tuesday.
ED Attending Note
-
Portions of this chart may have been created with voice recognition software.� Occasional wrong word or��sound alike� substitutions may have occurred due to the inherent limitations of voice recognition software.
Discharge Plan
Departure
Patient Disposition: Home (Routine Discharge)
Date of Disposition: 11/03/24
Time of Disposition: 21:12
Patient with high blood pressure during this ER visit?: No
Condition: Good
Covid-19: Not Applicable
Discharge Problem:
LAUREANO (dyspnea on exertion)
Instructions: Shortness of Breath (Dyspnea) (DC)
Prescriptions:
No Action
cetirizine 10 mg Tablet
10 mg PO DAILY
metoprolol succinate [Toprol XL] 25 mg Tablet Extended Release 24 Hr
25 mg PO BID
fluticasone propionate 50 mcg/actuation [place],Suspension
2 spray INTRANASAL DAILY
donepezil 5 mg Tablet
5 mg PO HS
acetaminophen 500 mg Tablet
1,000 mg PO Q6HPRN PRN (Reason: mild pain)
pantoprazole 40 mg Tablet,Delayed Release (Dr/Ec)
40 mg PO DAILY
albuterol sulfate 90 mcg/actuation Hfa Aerosol Inhaler
2 puff INHALATION R Q4HPRN PRN (Reason: copd)
losartan 50 mg Tablet
50 mg PO DAILY
Anti-Itch (menthol-camphor) 0.5-0.5 % Lotion
1 applic TOPICAL BID
Rx Instructions:
apply to affected areas
levetiracetam [Keppra] 500 mg tablet
500 mg PO BID Qty: 60 0RF
quetiapine 25 mg Tablet
37.5 mg PO BID
sertraline 100 mg Tablet
100 mg PO DAILY
Referrals:
Yaneli Ambriz, [Family Provider, General]
Activity Restrictions/Additional Instructions:
Follow up with your glass tube bender on Tuesday Return to the emergency department immediately for any changes in/worsening of your symptoms.
Interventions
Interventions:
*Nursing Disposition Last Done: 11/03/24 21:29
ED- Cardiac Assessment Last Done: 11/03/24 19:57
ED- Pulmonary Assessment Last Done: 11/03/24 19:57
Discharge Date and Time
Discharge Date/Time: 11/03/24 21:29
Print Language: TAIWANESE
== END 2024-11-03 21:29 | disposition home or self-care (01) ==
LOC: EMR 17:14
PROVIDERS: EMERGENCY PHYSICIAN Emergency Medicine; FAMILY PHYSICIAN Hospitalist
DX: R06.09 Other forms of dyspnea (principal); C34.90 Malignant neoplasm of unspecified part of unspecified bronchus or lung; C79.31 Secondary malignant neoplasm of brain; J44.9 Chronic obstructive pulmonary disease, unspecified; I10 Essential (primary) hypertension; F03.93 Unspecified dementia, unspecified severity, with mood disturbance; Z87.891 Personal history of nicotine dependence
CPT/HCPCS: 99285; 71046; 80053; 82962; 83880; 84484; 85025; 93005

== ENCOUNTER 2024-12-22 02:29 | Inpatient (IN) | payer OTHER, SELFPAY ==
[2024-12-21] VITALS (12 sets, daily range): BP systolic 160–211; BP diastolic 84–163
--- NOTE | 2024-12-21 19:27 | ED.GENMED ---
History of Present Illness
<Isabela Gonzalez MD, Resident - Last Filed: 12/22/24 14:56>
General
Chief Complaint: Anxiety
Source: patient and family
Time Seen by Provider: 12/21/24 18:39
History of Present Illness
History of Present Illness:
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 She is a resident of
[facility] and today she while she was at the [facility] she stated something really upset her. She does not remember what it was. She started feeling incredibly anxious, SOB and like she was going to pass out. She endorses some chest tightness, but
no pain or pressure. She denies any, heart palpitations, blurry vision, weakness prior to the episode. She alerted one of the [facility] staff, they took her blood pressure and noted her to be hypertensive and sent her to the ER via EMS. She has been
satting well on room air the entire duration of her trip to the ER and while in the ER. She denies any cough, fevers, chills, nausea, vomiting, diarrhea, constipation, burning with urination, weakness. She wants to speak to her sister or her
friend Anna.
Upon speaking to her sister Anna, she has a history of panic attacks and the last time they sent her to the ER, she was told that they should evaluate her at [facility] first and have her oxygen saturation is good, breath sounds are clear, and
blood pressure is okay, to take a specific medication. She does not recall the name of the medication. She states they are not pursing any treatment for her carcinoid lung tumor as she was told by her oncologist she could not tolerate chemo and was
not a candidate for surgery. She did state she gets like this with UTIs.
Past History
<Isabela Gonzalez MD, Resident - Last Filed: 12/22/24 14:56>
Past History
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
Social History
Tobacco: Former smoker
Alcohol: None
Personal:
Living: assisted living (Memory care unit)
Family History
Family History: Other (Noncontributory)
Review of Systems
<Isabela Gonzalez MD, Resident - Last Filed: 12/22/24 14:56>
Review of Systems
Allergies reviewed?: Yes
Constitutional: Reports no symptoms
EENT: Reports no symptoms
Respiratory: Reports trouble breathing
Cardiac: Reports other (chest tightness)
ABD/GI: Reports no symptoms
: Reports no symptoms
Musculoskeletal: Reports no symptoms
Skin: Reports no symptoms
Neurological: Reports no symptoms
Endocrine: Reports no symptoms
Psychiatric: Reports anxiety
Phy Exam
<Isabela Gonzalez MD, Resident - Last Filed: 12/22/24 14:56>
Physical Exam
Physical Exam:
General: Anxious, sitting up straight
Head: atraumatic
Eyes: PERRLA
Neck:supple
Cardiac: Tachycardic, S1, S2, no murmurs
Respiratory: Clear breath sounds bilaterally, no wheezes or rails
Abdomen: Soft, nontender, nondistended, normal bowel sounds in all 4 quadrants
Extremities: No peripheral edema
Psych: Anxious
Course
<Isabela Gonzalez MD, Resident - Last Filed: 12/22/24 14:56>
Orders/Labs/Results
Orders:
Orders
12/21/24 20:35
EKG [Electrocardiogram (*1)] Urgent
Reason for Study: Shortness of Breath
Urinalysis Reflex To Culture Urgent
Date Specimen was Collected: 12/21/24
Time Specimen was Collected: 20:33
Urine Microscopic Reflex Cult Urgent
12/21/24 20:36
EKG- Treatment ONCE
12/21/24 20:55
Midazolam HCl [Versed] 2 mg IV NOW STA
12/21/24 21:09
Basic Metabolic Panel Urgent
Complete Blood Count/With Diff Urgent
Troponin I Urgent
12/21/24 22:49
Electrocardiogram (*1) Urgent
Reason for Study: Chest Pain
EKG- Treatment ONCE
12/21/24 22:58
Nitroglycerin Sublingual [Nitrostat (Sublingual)] 0.4 mg SL NOW STA
12/21/24 23:32
Metoprolol [Lopressor] 25 mg PO NOW STA
12/22/24 00:02
EKG [Electrocardiogram (*1)] Urgent
Reason for Study: Hypertension, Benign
12/22/24 00:03
EKG- Treatment ONCE
Troponin I Urgent
12/22/24 00:51
CR Chest - 2 Views Urgent
Comment:
Reason For Exam: cp
12/22/24 00:53
Aspirin 325 mg PO NOW STA
12/22/24 01:59
Admit/Transfer Patient As Directed
Co-Sign Provider:
Level of Care: Inpatient admission
Assign to:: Telemetry
Physician / Group: Naveed
Diagnosis: Hypertensive Emergency / Anxiety
Reason for Telemetry: Chest Pain syndromes
Date to Stop Telemetry: 12/24/24
Time to Stop Telemetry: 11:00
Reason for Hospitalization: Hypertensive Emergency
Expected length of stay greater than two midnights?: Yes
ELOS- Estimated Length of Stay in days: 2
I certify the patient meets the requirements for IP care: Yes
PRN Pain Medication Management As Directed
May give lesser potent ordered pain med per pt: Yes
preference::
Protocol:: Medication orders for pain may be administered in a
manner that supports deferring to patient preference
when the pt is:
- Requesting an ordered lesser potent pain medication.
Least to most potent pain medications are defined
as: acetaminophen < NSAID < tramadol < opioids
(morphine, oxycodone, hydromorphone).
- Requesting a lesser dose of the same medication IF
ORDERED.
- Requesting a less intrusive route of administration
if both routes are prescribed by the provider (PO <
IV).
12/22/24 02:00
Code Status As Directed
Resuscitation Status: Full Code
12/22/24 02:13
COVID-19 Antigen Urgent
Source: Nasal Swab
Influenza A+B Rapid Molecular Urgent
NEREYDA Source: Nasal Swab
Specimen Description:
12/22/24 03:32
Acetaminophen [Tylenol] 650 mg PO Q4HPRN PRN
Albuterol Nebs [Ventolin Nebules] 2.5 mg INH R Q4HPRN PRN
Alprazolam [Xanax] 0.25 mg PO Q8HPRN PRN
HydrALAZINE [Apresoline] 5 mg IV Q4HPRN PRN
Melatonin 5 mg PO HS PRN insomnia
12/22/24 03:32
Echo 2D MMode Doppler [Echo 2D MMode Color/Doppler] Routine
Reason for Study: Hypertensive Emergency
Activity As Directed
Activity Level: Ambulate
With Assistance
EKG with chest pain [ECG as needed] As Directed
ECG as needed for:: Chest Pain
I/O [Intake/ Output] As Directed
Frequency: Per unit guidelines
Pneumatic Compression Sleeves As Directed
Type: Knee high
Vital Signs As Directed
Frequency: Per unit guidelines
Oxygen Therapy [O2 Therapy] [RESP] Routine
Titrate/Wean O2 to maintain O2 sat greater than (%): 94
PT Consult [Pt Eval And Treat] Routine
Activity Level: Ambulate
With Assistance
DX Deep Vein Thrombosis Video Routine
12/22/24 05:53
Basic Metabolic Panel IN AM
Complete Blood Count/No Diff IN AM
Troponin I IN AM
12/22/24 06:00
EKG [Electrocardiogram (*1)] IN AM
Reason for Study: Chest Pain
Regular
At Your Request: Limited, Finishing Range Feeder Required
12/22/24 08:00
Aspirin Chewable [Low Strength Aspirin] 81 mg PO DAILY
Budesonide/Formoterol 160/4.5 [Symbicort 160/4.5 Mcg Inhaler] 1 puff INH R BID
Cetirizine HCl [Zyrtec] 10 mg PO DAILY
Levetiracetam [Keppra] 500 mg PO BID
Losartan [Cozaar] 50 mg PO DAILY
Metoprolol Xl [Toprol Xl] 25 mg PO BID
Pantoprazole [Protonix] 40 mg PO DAILY
Quetiapine Fumarate [Seroquel] 25 mg PO BID
Sertraline HCl [Zoloft] 100 mg PO DAILY
12/22/24 22:00
Donepezil [Aricept] 5 mg PO HS
Mirtazapine [Remeron] 30 mg PO HS
12/24/24 11:00
DC Protocol for Telemetry ONCE
Abnormal Lab Results
12/21/24 12/21/24 12/22/24
20:35 21:09 00:03
WBC 10.9 H 10^3/uL
(4.8-10.8)
MCHC 31.6 L g/dL
(33.0-37.0)
Absolute Neuts (auto) 9.0 H 10^3/uL
(1.4-6.5)
Absolute Lymphs (auto) 1.1 L 10^3/uL
(1.2-3.4)
Absolute Monos (auto) 0.7 H 10^3/uL
(0.1-0.6)
Neutrophils % 82.3 H %
(42.2-75.2)
Lymphocytes % 10.3 L %
(20.5-51.1)
Carbon Dioxide 31 H mmol/L
(22-30)
BUN 21 H mg/dl
(7-17)
Troponin I 0.123 H* ng/ml 0.121 H* ng/ml
Urine RBC 3-6 A /HPF
(0-2)
Urine Bacteria (Reflex) Few A
(Negative)
Urine Albumin (Reflex) 2+ A
(Neg - Trace)
12/21/24 21:09
12/21/24 21:09
Vital Signs
Initial and Last Documented VS:
Initial Vital Signs
Pulse Resp BP Pulse Ox
110 20 200/163 94
12/21/24 18:32 12/21/24 18:32 12/21/24 18:32 12/21/24 18:32
Last Documented Vital Signs
Temp Pulse Resp BP Pulse Ox
98.2 F 74 18 146/73 94
12/22/24 11:15 12/22/24 11:15 12/22/24 11:15 12/22/24 11:15 12/22/24 11:15
<Evgeny Hernandez, DO - Last Filed: 12/22/24 00:54>
Orders/Labs/Results
Orders:
Orders
12/21/24 20:35
EKG [Electrocardiogram (*1)] Urgent
Reason for Study: Shortness of Breath
Urinalysis Reflex To Culture Urgent
Date Specimen was Collected: 12/21/24
Time Specimen was Collected: 20:33
Urine Microscopic Reflex Cult Urgent
12/21/24 20:36
EKG- Treatment ONCE
12/21/24 20:55
Midazolam HCl [Versed] 2 mg IV NOW STA
12/21/24 21:09
Basic Metabolic Panel Urgent
Complete Blood Count/With Diff Urgent
Troponin I Urgent
12/21/24 22:49
Electrocardiogram (*1) Urgent
Reason for Study: Chest Pain
EKG- Treatment ONCE
12/21/24 22:58
Nitroglycerin Sublingual [Nitrostat (Sublingual)] 0.4 mg SL NOW STA
12/21/24 23:32
Metoprolol [Lopressor] 25 mg PO NOW STA
12/22/24 00:02
EKG [Electrocardiogram (*1)] Urgent
Reason for Study: Hypertension, Benign
12/22/24 00:03
EKG- Treatment ONCE
Troponin I Urgent
12/22/24 00:51
CR Chest - 2 Views Urgent
Comment:
Reason For Exam: cp
12/22/24 00:53
Aspirin 325 mg PO NOW STA
12/22/24 01:59
Admit/Transfer Patient As Directed
Co-Sign Provider:
Level of Care: Inpatient admission
Assign to:: Telemetry
Physician / Group: Naveed
Diagnosis: Hypertensive Emergency / Anxiety
Reason for Telemetry: Chest Pain syndromes
Date to Stop Telemetry: 12/24/24
Time to Stop Telemetry: 11:00
Reason for Hospitalization: Hypertensive Emergency
Expected length of stay greater than two midnights?: Yes
ELOS- Estimated Length of Stay in days: 2
I certify the patient meets the requirements for IP care: Yes
PRN Pain Medication Management As Directed
May give lesser potent ordered pain med per pt: Yes
preference::
Protocol:: Medication orders for pain may be administered in a
manner that supports deferring to patient preference
when the pt is:
- Requesting an ordered lesser potent pain medication.
Least to most potent pain medications are defined
as: acetaminophen < NSAID < tramadol < opioids
(morphine, oxycodone, hydromorphone).
- Requesting a lesser dose of the same medication IF
ORDERED.
- Requesting a less intrusive route of administration
if both routes are prescribed by the provider (PO <
IV).
12/22/24 02:00
Code Status As Directed
Resuscitation Status: Full Code
12/22/24 02:13
COVID-19 Antigen Urgent
Source: Nasal Swab
Influenza A+B Rapid Molecular Urgent
NEREYDA Source: Nasal Swab
Specimen Description:
12/22/24 03:32
Acetaminophen [Tylenol] 650 mg PO Q4HPRN PRN
Albuterol Nebs [Ventolin Nebules] 2.5 mg INH R Q4HPRN PRN
Alprazolam [Xanax] 0.25 mg PO Q8HPRN PRN
HydrALAZINE [Apresoline] 5 mg IV Q4HPRN PRN
Melatonin 5 mg PO HS PRN insomnia
12/22/24 03:32
Echo 2D MMode Doppler [Echo 2D MMode Color/Doppler] Routine
Reason for Study: Hypertensive Emergency
Activity As Directed
Activity Level: Ambulate
With Assistance
EKG with chest pain [ECG as needed] As Directed
ECG as needed for:: Chest Pain
I/O [Intake/ Output] As Directed
Frequency: Per unit guidelines
Pneumatic Compression Sleeves As Directed
Type: Knee high
Vital Signs As Directed
Frequency: Per unit guidelines
Oxygen Therapy [O2 Therapy] [RESP] Routine
Titrate/Wean O2 to maintain O2 sat greater than (%): 94
PT Consult [Pt Eval And Treat] Routine
Activity Level: Ambulate
With Assistance
DX Deep Vein Thrombosis Video Routine
12/22/24 05:53
Basic Metabolic Panel IN AM
Complete Blood Count/No Diff IN AM
Troponin I IN AM
12/22/24 06:00
EKG [Electrocardiogram (*1)] IN AM
Reason for Study: Chest Pain
Regular
At Your Request: Limited, Finishing Range Feeder Required
12/22/24 08:00
Aspirin Chewable [Low Strength Aspirin] 81 mg PO DAILY
Budesonide/Formoterol 160/4.5 [Symbicort 160/4.5 Mcg Inhaler] 1 puff INH R BID
Cetirizine HCl [Zyrtec] 10 mg PO DAILY
Levetiracetam [Keppra] 500 mg PO BID
Losartan [Cozaar] 50 mg PO DAILY
Metoprolol Xl [Toprol Xl] 25 mg PO BID
Pantoprazole [Protonix] 40 mg PO DAILY
Quetiapine Fumarate [Seroquel] 25 mg PO BID
Sertraline HCl [Zoloft] 100 mg PO DAILY
12/22/24 22:00
Donepezil [Aricept] 5 mg PO HS
Mirtazapine [Remeron] 30 mg PO HS
12/24/24 11:00
DC Protocol for Telemetry ONCE
Abnormal Lab Results
12/21/24 12/21/24 12/22/24
20:35 21:09 00:03
WBC 10.9 H 10^3/uL
(4.8-10.8)
MCHC 31.6 L g/dL
(33.0-37.0)
Absolute Neuts (auto) 9.0 H 10^3/uL
(1.4-6.5)
Absolute Lymphs (auto) 1.1 L 10^3/uL
(1.2-3.4)
Absolute Monos (auto) 0.7 H 10^3/uL
(0.1-0.6)
Neutrophils % 82.3 H %
(42.2-75.2)
Lymphocytes % 10.3 L %
(20.5-51.1)
Carbon Dioxide 31 H mmol/L
(22-30)
BUN 21 H mg/dl
(7-17)
Troponin I 0.123 H* ng/ml 0.121 H* ng/ml
Urine RBC 3-6 A /HPF
(0-2)
Urine Bacteria (Reflex) Few A
(Negative)
Urine Albumin (Reflex) 2+ A
(Neg - Trace)
12/21/24 21:09
12/21/24 21:09
Vital Signs
Initial and Last Documented VS:
Initial Vital Signs
Pulse Resp BP Pulse Ox
110 20 200/163 94
12/21/24 18:32 12/21/24 18:32 12/21/24 18:32 12/21/24 18:32
Last Documented Vital Signs
Temp Pulse Resp BP Pulse Ox
98.2 F 74 18 146/73 94
12/22/24 11:15 12/22/24 11:15 12/22/24 11:15 12/22/24 11:15 12/22/24 11:15
<Isabela Gonzalez MD, Resident - Last Filed: 12/22/24 14:56>
MDM/Problems Addressed
Differential Diagnosis Includes:
Anxiety attack, COPD exacerbation, upper respiratory tract infection, PE, MD, brain mets change, takotsubo's.
MDM/Problems Addressed:
Sister is her POA and she believes this is a panic attack. This happens frequently with her dementia. She did recommend checking a U/A because she can get like this with UTIs. The sister would have preferred her to stay at [facility] and try the
anxiety medication rather than her come here. She is okay if we give her anxiety medication and see how she does without additional work up as she strongly believes this is anxiety related. Her close family friend whom she states is basically her
nephew came to visit and after he came she is doing significantly better. Her SOB has almost disappeared along with her complaints of chest tightness.
Due to chest tightness and HTN, will get EKG, troponin. Check basic blood work CBC, CMP. Troponin noted to be elevated at 0.123. Will get repeat troponin. It was noted her troponin was elevated during prior hospitalizations and suspected to be
non-ischemic troponin elevation. She continues to endorse some tightness in her chest, but improved from prior and no pain. U/A was clean. WBC slightly elevated at 10.9.
BP still elevated. Cuff size originally a small. Switched to normal adult size and still 200/100. She is now complaining of slight headache behind right eye. Will give nitroglycerin with repeat EKG.
Nitroglycerin did not change feelings of chest tightness. BP decreased to 164/92. Repeat troponin is 0.121. Will admit for obs given elevated troponin uncontrolled HTN and other co-morbidities. Will hold off on heparin given EKG non-ischemic and she
has had elevated troponins in the past. Will give ASA. Chest x-ray for completeness unremarkable for acute etiology.. Takotsubos given significant stress may be in the differentials.
Chronic conditions affecting care: COPD and Other (Carcinoid lung tumor with mets to the brain, sacrum, lumbar spine)
Acute Exacerbation and/or Progression of Chronic Illness: HTN and Psychiatric illness
<Isabela Gonzalez MD, Resident - Last Filed: 12/22/24 14:56>
*Pulse Oximetry
SaO2: 92
Oxygen Mode of Delivery: Room air
Data Reviewed
Review of Other/Old Records Reveals: Labs (Prior troponin 01/24/24 0.101) and Radiology Studies (12/09/[address] intraparenchymal metastatic disease noted)
Source: patient, records and family
<Evgeny Hernandez DO - Last Filed: 12/22/24 00:54>
*Pulse Oximetry
SaO2: 97
Patient hypoxic: no
*[employer]ician Interpretation
Rate: normal
Interpretation: normal
Rhythm: sinus
*Critical Care Note
Total Time (30-74mins, 75-104mins- exclusive of procedures): 30 minutes
ED Attending Note
<Isabela Gonzalez MD, Resident - Last Filed: 12/22/24 14:56>
-
Portions of this chart may have been created with voice recognition software.� Occasional wrong word or��sound alike� substitutions may have occurred due to the inherent limitations of voice recognition software.
<Evgeny Hernandez DO - Last Filed: 12/22/24 00:54>
ED Attending Note
Patient seen and examined by attending physician: Yes
I performed a history and physical exam of patient and discussed management with resident, I reviewed resident's note and agree with documented findings and plan of care.: Yes
ED Attending Note:
84-year-old female who presents feeling severely anxious. Patient has a history of that and family at bedside (nephew) states that she has had same reactions in the past. Patient does report chest tightness but states that she feels very anxious
and similar to her prior anxiety attacks. Patient denies shortness of breath. No recent fevers. Patient's sister also states that she has long history of anxiety and supposed to get medications when she feels this way but did not get it today as
she was out. On my evaluation patient does report feeling tightness in her chest and still feeling anxious.
Exam:
Awake alert and oriented, heart regular without murmurs no wheezing noted she is hypertensive on exam. No lower extremity edema. No focal motor deficits. Does appear very anxious.
EKG: Normal sinus rhythm at a rate 88. Normal axis. Normal intervals. No acute ischemic changes
Assessment and plan: EKG nonischemic. She is somewhat anxious on exam and I question whether her symptoms are related to anxiety versus medical condition. Initial troponin elevated but similar to prior troponin elevation. EKG unremarkable. Will
repeat enzyme and trial small dose of midazolam in the meantime. Continue monitor blood pressure. Repeat EKG
0047 patient continues to have an EKG that is nonischemic blood pressure improving. Given her evening dose of metoprolol. Family at bedside awaiting repeat troponin. Repeat troponin now does show a slight decrease in the value and again is
similar to previous measurements. At this point I do not feel that heparinization is warranted as her EKGs remain unchanged. However, given her age, uncontrolled hypertension and symptoms we will monitor overnight. If symptoms worsen in any way
may need repeat EKG. could also consider Takotsubo's.
Discharge Plan
Departure
Patient Disposition: Admit
Date of Disposition: 12/22/24
Time of Disposition: 00:48
Admit to: Telemetry
Presentation/result/management discussed w/ accepting MD/DO: Hospitalist
Discharge Problem:
Hypertensive urgency, Anxiety reaction, Elevated troponin, Hypertensive emergency
Interventions
Interventions:
*Risk Screen - Suicide Last Done: 12/21/24 19:02
*General Assessment Last Done: 12/21/24 18:32
*Neglect/Abuse Screening Last Done: 12/21/24 18:44
*ED- Fall Risk Assessment Last Done: 12/21/24 18:32
*ED COVID-19 Vaccine History Last Done: 12/21/24 18:32
*ED Influenza Vaccine History Last Done: 12/21/24 18:32
*Nursing Disposition Last Done: 12/22/24 03:38
ED-Psychological Assessment Last Done: 12/21/24 18:32
Discharge Date and Time
Discharge Date/Time: 12/22/24 03:39
[2024-12-21 20:42] LABS: Urine Character Clear (Clear)
[2024-12-21 20:56] LABS: Urine Squamous Cell 0-2 /LPF (Few)
[2024-12-21] MEDS: VERSED 2 MG IV (21:02)
[2024-12-21 21:20] LABS: Hematocrit 42.1 % (37.0-47.0); Hemoglobin 13.3 g/dL (12.0-16.0); Mean Corp Hgb Conc. 31.6 g/dL (33.0-37.0); Mean Corpuscular Volume 94.0 fL (81.0-99.0); Nucleated Red Blood Cells % 0 %; Platelet Count 260 10^3/uL (130-400); Red Cell Dist. Width 13.3 % (11.5-14.5)
[2024-12-21 21:39] LABS: Blood Urea Nitrogen 21 mg/dl (7-17); Calcium 9.4 mg/dl (8.4-10.2); Carbon Dioxide 31 mmol/L (22-30); Chloride 106 mmol/L (98-107); Glucose 95 mg/dl (70-99); Potassium 3.6 mmol/L (3.5-5.1); Sodium 143 mmol/L (135-145); eGFR > 60.00
[2024-12-21 21:56] LABS: Troponin I 0.123 ng/ml
[2024-12-21] MEDS: NITROSTAT (SUBLINGUAL) 0.4 MG SL (23:13)
[2024-12-21] MEDS: LOPRESSOR 25 MG PO (23:47)
[2024-12-22] VITALS (11 sets, daily range): BP systolic 146–191; BP diastolic 73–101; BMI 20.6
[2024-12-22 00:45] LABS: Troponin I 0.121 ng/ml
[2024-12-22] MEDS: ASPIRIN 325 MG PO (00:58)
--- NOTE | 2024-12-22 02:03 | HPS.HSE ---
Family Physician
-
Family Physician: LASHANDA Peterson
Chief Complaint
-
Chest Pain / SOB
History of Present Illness
Patient is an 84y F with PMH significant for metastatic carcinoid tumor, hypertension and dementia who presents to ED complaining of chest pain and SOB. History obtained from ED record and family at the bedside. Lesser extent from patient given
baseline dementia. Patient was reportedly at a museum today when she began to feel SOB and chest tightness. She was evaluated by staff and found to be hypertensive and was transported to the ED for further evaluation.
ED spoke with family who noted similar episodes in the past / panic and anxiety attacks.
In the ED, patient received Versed with some improvement in her symptoms.
At the time of my examination, patient denies any chest tightness or dyspnea - though she continues to exhibit tachypnea and appears somewhat anxious.
She denies any recent cough, fevers / chills, N/V/D, etc.
Medical History
Past Medical History
Past Medical History: Reports Other
Additional Past Medical History:
Metastatic Carcinoid Tumor
Hypertension
Senile Dementia
Seizure Disorder
History of Brain Tumor
COPD
Anxiety / Depression
Past Surgical History: Reports Other
Additional Past Surgical History:
Tubal Ligation
T&A
Social History
Unable to obtain full social history at this time due to: Dementia
Family History
Family History: Unable to Obtain
Allergies / Home Medications
Allergies reflects when Allergies were last updated in [employer].
Home Medications with original date entered in [employer]
Allergy/Medication List:
Allergies
Allergy/AdvReac Type Severity Reaction Status Date / Time
lorazepam (From Ativan) Allergy Unknown Verified 11/03/24 17:17
Home Medications
cetirizine 10 mg tablet 10 mg PO DAILY Allergies 07/14/23
fluticasone propionate 50 mcg/actuation nasal spray,suspension 2 spray intranasal DAILY Allergies 07/14/23
metoprolol succinate 25 mg tablet,extended release 24 hr (Toprol XL) 25 mg PO BID Blood Pressure 07/14/23
acetaminophen 500 mg tablet 1,000 mg PO Q6HPRN PRN mild pain 01/14/24
donepezil 5 mg tablet 5 mg PO HS Alzheimer's 01/14/24
pantoprazole 40 mg tablet,delayed release 40 mg PO DAILY Gastrointestinal Issue 01/14/24
albuterol sulfate 90 mcg/actuation aerosol inhaler 2 puff inhalation R Q4HPRN PRN copd 01/24/24
camphor-menthol 0.5 %-0.5 % lotion (Anti-Itch (menthol-camphor)) 1 applic topical BID Pain 01/24/24
losartan 50 mg tablet 50 mg PO DAILY Blood Pressure 01/24/24
levetiracetam 500 mg tablet (Keppra) 500 mg PO BID Seizures #60 tabs 01/26/24
quetiapine 25 mg tablet 25 mg PO BID Mental Health/Anxiety 02/25/24
sertraline 100 mg tablet 100 mg PO DAILY Mental Health/Anxiety 02/25/24
budesonide-formoterol HFA 160 mcg-4.5 mcg/actuation aerosol inhaler 2 inh inhalation BID 12/22/24
melatonin 5 mg tablet 5 mg PO HS PRN insomnia 12/22/24
mirtazapine 30 mg tablet 30 mg PO HS 12/22/24
Review of Systems
-
History Source: Patient
A 12 point ROS was completed and negative except as noted: Yes
Constitutional: Denies Fever or Chills
EENT: Denies Sore Throat
Respiratory: Reports Trouble Breathing; Denies Cough
Cardiac: Reports Chest Pain; Denies Palpitations
Abdomen/GI: Denies Abdominal Pain, Nausea, Vomiting or Diarrhea
Musculoskeletal: Denies Joint Pain or Edema
Neurological: Denies Dizzy or Headache
Psych: Reports Depression and Anxiety
Physical Exam
Vital Signs
Vital Signs
Temp Pulse Resp BP Pulse Ox
97.9 F 73 20 191/96 92
12/22/24 00:45 12/22/24 01:30 12/21/24 18:32 12/22/24 01:29 12/22/24 01:30
Physical Exam
General: Other (Anxious-appearing 84y F in mild distress.)
HEENT: Moist mucous membranes and PERRLA
Respiratory: Other (Tachypneic. Upper airways wheezing, but lower lungs are clear. No rales / rhonchi.)
Cardiac: S1/S2 and Tachycardia; No Murmur
GI: Soft, Non Tender, Non Distended and Normal Bowel Sounds
Musculoskeletal: No Clubbing, No Cyanosis and No Edema
Neuro: Awake, Alert and Nonfocal/grossly intact
Laboratory Results
-
12/21/24 21:09
12/21/24 21:09
Laboratory Results
Troponin I 0.121 ng/ml H* 12/22/24 00:03
Impression/Plan
-
A/P: Patient is an 84y F with PMH significant for carcinoid tumor, hypertension and anxiety / depression who presents to ED complaining of chest pain and hypertension.
Hypertensive Emergency
- Admit for further evaluation and treatment.
- Patient presents with markedly elevated BP (200/162) and evidence of end-organ impairment in the form of elevated troponin (0.123), chest pain, etc.
- Component of anxiety contributing to current symptoms / presentation (see below).
- Received anxiolytics and PO metoprolol in the ED.
- BP somewhat improved from prior. No further chest pain / dyspnea.
- Continue / resume usual antihypertensive med regimen.
- IV hydralazine as needed for higher BP. Add / adjust additional medications as needed.
- Check additional troponin in AM to confirm downward trend.
- Follow for any recurrent chest pain, dyspnea, etc.
- Check Echo.
- Cardiology evaluation if recurrent chest pain, rising troponin, etc.
Anxiety / Depression
- Difficult to determine if anxiety caused symptoms or vice versa.
- Continue usual psychotropic med regimen.
- Alprazolam PRN.
- Monitor for any new / worsening symptoms.
COPD
- Mild wheezing on exam.
- Continue nebs PRN. O2 support if needed.
- Continue usual inhaled medications.
Metastatic Carcinoid Tumor
- No active treatment desired per report / chart. Has been present / known x years.
- Continue Keppra for seizure prophylaxis with known MEDICAL IMAGING SPECIALIST metastases.
DVT Prophylaxis: SCDs
Code Status: No status documented in NH record. Patient indicates she would be in favor of resuscitation efforts if needed.
[2024-12-22 02:52] LABS: COVID-19 Antigen Negative (Negative)
[2024-12-22] MEDS: XANAX 0.25 MG PO (03:56)
[2024-12-22 06:02] LABS: Hematocrit 37.0 % (37.0-47.0); Hemoglobin 11.8 g/dL (12.0-16.0); Mean Corp Hgb Conc. 31.9 g/dL (33.0-37.0); Mean Corpuscular Volume 91.4 fL (81.0-99.0); Platelet Count 237 10^3/uL (130-400); Red Cell Dist. Width 13.3 % (11.5-14.5)
[2024-12-22 06:32] LABS: Blood Urea Nitrogen 16 mg/dl (7-17); Calcium 9.3 mg/dl (8.4-10.2); Carbon Dioxide 30 mmol/L (22-30); Chloride 106 mmol/L (98-107); Glucose 88 mg/dl (70-99); Potassium 3.3 mmol/L (3.5-5.1); Sodium 138 mmol/L (135-145); eGFR > 60.00
[2024-12-22 06:48] LABS: Troponin I 0.056 ng/ml
[2024-12-22] MEDS: SYMBICORT 160/4.5 MCG INHALER 1 PUFF INH ×2 (07:32→18:06)
[2024-12-22] MEDS: PROTONIX 40 MG PO (08:30)
[2024-12-22] MEDS: ZOLOFT 100 MG PO (08:30)
[2024-12-22] MEDS: ZYRTEC 10 MG PO (08:30)
[2024-12-22] MEDS: LOW STRENGTH ASPIRIN 81 MG PO (08:30)
[2024-12-22] MEDS: COZAAR 50 MG PO (08:30)
[2024-12-22] MEDS: TOPROL XL 25 MG PO ×2 (08:30→19:29)
[2024-12-22] MEDS: SEROQUEL 25 MG PO ×2 (08:31→19:30)
[2024-12-22] MEDS: KEPPRA 500 MG PO ×2 (08:31→19:30)
[2024-12-22] MEDS: KCL 40 MEQ PO (08:34)
[2024-12-22 08:51] LABS: Magnesium 2.0 mg/dl (1.6-2.3)
--- NOTE | 2024-12-22 12:56 | W.PN.HOSP.TC ---
Addendum entered and electronically signed by Kody Concepcion MD 12/25/24 11:54:
correction- DNR
Addendum entered and electronically signed by Kody Concepcion MD 12/22/24 15:19:
Sister wants hospice. Consult placed
Addendum entered and electronically signed by Kody Concepcion MD 12/22/24 14:54:
Sister does not want MRI therefore canceled
Addendum entered and electronically signed by Kody Concepcion MD 12/22/24 14:34:
Sister okay with patient getting Xanax for MRI
Addendum entered and electronically signed by Kody Concepcion MD 12/22/24 13:39:
Dr. Gisele Caraballo who is Dr. Rm's partner called me back
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 B/L Pulm nodules and in July 2022
Bronch July 2022 Confirmed [address] Dr.Varsha Quiroz had gamma knife to brain August 2022
November 2022 MRI showed response but MRI April 2024 multiple mets in brain again
She hasn't seen since april
Rad Onc Last seen May 2023
Cognitive issues predated Radiation.
Per sister
Had 3 chemo treatments last one was a year ago
Updated friend listed also again
Spoke to patient's sister who confirmed DNR
She could not answer me why the patient is not on hospice if she is not at candidate for any further treatment for malignancy.
Sister would like to see how the brain looks like now since she has not had an MRI for a while. But at the same time she does not want patient to get any Ativan. Patient could not get MRI last time because she would not stay still for the MRI. I
explained to the sister that if we need to give some thing to relax her has to be a benzo I could use Xanax. Cannot use any antipsychotics with patient's prolonged QTc.
Sister wants to talk to somebody and get back to me whether she would want an MRI with Xanax.
Total time spent more than 1 hour today.
Original Note:
Today's Communication/Plan
-
Continue antihypertensives
PT OT
Discontinue benzos
Await callback from oncology
Routine echo
Assessment / Plan
Assessment / Plan
84-year-old female with shortness of breath and chest tightness patient was found to be hypotensive at assisted living and transported to ED. Blood pressure was elevated to 200/162 mmHg received anxiolytics and metoprolol in the ER
Seen earlier today. Late documentation. Patient's friend was at bedside and her son is patient's POA.
Friend stated that patient was diagnosed with some kind of cancer in the lung and brain she does not know the details. Sees Dr. Kim Quiroz and when [place] friend does not know all the details.
EKG-sinus rhythm, possible left atrial enlargement, QTc 508
On examination patient is mildly confused cardiovascular system S1-S2 appreciated
Chest clear to auscultation
Patient is mildly confused but able to converse. No facial droop. No motor deficits
# Encephalopathy-unclear reason. Discontinue benzos and monitor. May need BRICK SHADER imaging if this does not improve after medicines are discontinued
# Hypertensive emergency blood pressure elevated at 200/162 in the ER
Elevated troponin and chest pain
Troponin now trending down
Better blood pressure control
Check routine echo
Continue metoprolol, losartan
# Prolonged QTc-check magnesium level. Replace potassium. Repeat EKG tomorrow morning . Monitor on telemetry. Avoid any medicines which prolongs QTc
# Hypokalemia-replace potassium
# History of seizures-continue Keppra
# COPD-continue albuterol, budesonide/formoterol, fluticasone inhalers or equivalent
# Metastatic carcinoid tumor with BRICK SHADER metastasis-on Keppra for seizure prophylaxis? Patient was told that she does not have any treatment and this is a slow-growing tumor.
# Anxiety and depression-continue Zoloft, quetiapine and mirtazapine
# Dementia-continue Aricept
# Ex-smoker
# DVT prophylaxis-Lovenox
# Full code
D/W RN
Friend's son is POA
Discussed with friend at bedside
Left a message for Dr Rm's service to call back
Also requested records from [facility]
time spent 35 min
Part of this note was created using voice recognition system. Occasional wrong word or��sound alike� substitutions may have inadvertently occurred due to the inherent limitations of voice recognition software. If noted kindly bring it to my
attention for correction.
Anticipated Discharge: 24 - 48 hours
Subjective/Interval History
-
Date of Service: December 22, 2024
Objective Data
-
Labs:
Laboratory Results
12/22/24
05:53
WBC 7.3
Hgb 11.8 L
Hct 37.0
Plt Count 237
Sodium 138
Potassium 3.3 L
Chloride 106
Carbon Dioxide 30
BUN 16
Creatinine 0.6
Glucose 88
Calcium 9.3
Vital Signs:
Vital Signs
Temp Pulse Resp BP Pulse Ox
98.2 F 74 18 146/73 94
12/22/24 11:15 12/22/24 11:15 12/22/24 11:15 12/22/24 11:15 12/22/24 11:15
--- NOTE | 2024-12-22 15:56 | PTCARENOTE ---
"Patient's sister, Brielle stated she dose not want the patient to undergo an MRI at this time. Per sister, she would like to discuss hospice care options and is requesting information on hospice referrals so she can contact herself. regional loss prevention manager "[place]"notified and has spoken with patients sister. Dr. Concepcion aware and that sister is requesting discharge for the patient tomorrow back to [facility]. "
--- NOTE | 2024-12-22 16:17 | CM ---
I.A: Completed By MICAH Romano. Patient lives at [facility] in the [place] side of the facility, uses a rolling walker, wheelchair, has CW OPERATOR 9-2:30pm then 6-8pm.
PCP: Delores Babcock
Pharmacy :[facility]
was here and halted the MRI stating that it would not be beneficial for the patient and cause emotional harm so opting for Hospice. MICAH Romano is waiting for the agency to make the referral to. Sister will be here tomorrow morning to orange picker machine operator
the patient. MICAH Romano spoke to human resources benefits manager at [facility] who will call MICAH if they need anything, but aware that Hospice is the ultimate plan.
PLAN: Return to [facility] with eventual Hospice.
[2024-12-22] MEDS: LOVENOX 40 MG SC (17:12)
[2024-12-22] MEDS: ARICEPT 5 MG PO (21:15)
[2024-12-22] MEDS: REMERON 30 MG PO (21:15)
[2024-12-23 03:29] VITALS: BP 165/87
[2024-12-23 07:05] VITALS: BP 169/93
[2024-12-23] MEDS: PROTONIX 40 MG PO (08:00)
[2024-12-23] MEDS: TOPROL XL 25 MG PO ×2 (08:00→20:10)
[2024-12-23] MEDS: ZOLOFT 100 MG PO (08:00)
[2024-12-23] MEDS: ZYRTEC 10 MG PO (08:00)
[2024-12-23] MEDS: SEROQUEL 25 MG PO ×2 (08:00→20:10)
[2024-12-23] MEDS: KEPPRA 500 MG PO ×2 (08:00→20:10)
[2024-12-23] MEDS: COZAAR 50 MG PO (08:00)
[2024-12-23] MEDS: LOW STRENGTH ASPIRIN 81 MG PO (08:00)
[2024-12-23] MEDS: SYMBICORT 160/4.5 MCG INHALER 1 PUFF INH ×2 (08:25→18:05)
[2024-12-23 11:00] VITALS: BP 156/88
[2024-12-23 11:59] LABS: Blood Urea Nitrogen 21 mg/dl (7-17); Calcium 9.2 mg/dl (8.4-10.2); Carbon Dioxide 28 mmol/L (22-30); Chloride 107 mmol/L (98-107); Estimated Creatinine Clearance 44 ml/min; Glucose 93 mg/dl (70-99); Potassium 4.2 mmol/L (3.5-5.1); Sodium 138 mmol/L (135-145); eGFR > 60.00
--- NOTE | 2024-12-23 12:17 | CM ---
F/U: MICAH Romano learned that family has changed their mind about discharge/ hospice. MICAH Romano met with the friend's son Matt who has Financial POA and the sister who said she gave Medical POA to [facility] when patient was first admitted
years prior. After MICAH Romano explained both services, Palliative and Hospice, Palliative Care is more in line with what they want right now for the patient. Family still wants hospitalization, patient is not 'symptomatic' needing Hospice
medications, family does not want chemotherapy, but want certain home medications. Thus, this reason for considering Palliative Care. MICAH Romano called Sherita Ojeda to share that patient is staying for MRI and that family has decided on Palliative Care
that they will arranged themselves via [facility]- MICAH Romano sent in referral with indicating this. MICAH Romano informed Hospitalist based on conversation with family that the Next of Kin for decision maker is the sister Brielle. PLAN: Return to [facility] when ready.
--- NOTE | 2024-12-23 12:27 | W.PN.HOSP.TC ---
Addendum entered and electronically signed by Kody Concepcion MD 12/25/24 11:53:
correction- DNR
Original Note:
Today's Communication/Plan
-
MRI of the brain
Echo
Increase losartan to 75 mg daily with a now dose.
Watch BP
Assessment / Plan
Assessment / Plan
84-year-old female with shortness of breath and chest tightness patient was found to be hypotensive at assisted living and transported to ED. Blood pressure was elevated to 200/162 mmHg received anxiolytics and metoprolol in the ER
EKG-sinus rhythm, possible left atrial enlargement, QTc 508
On examination patient is mildly confused
cardiovascular system S1-S2 appreciated
Chest clear to auscultation
Patient is mildly confused but able to converse. No facial droop. No motor deficits
# Encephalopathy-likely secondary to underlying dementia and DIESEL ENGINE PIPE FITTER metastasis and being in the hospital
Patient family agreeable with DIESEL ENGINE PIPE FITTER imaging. I have ordered 1 mg of Versed on-call for MRI as per patient's financial power of insurance defense attorney at bedside stated that Versed worked better in the ER.
# Hypertensive emergency blood pressure elevated at 200/162 in the ER
Elevated troponin and chest pain
Troponin now trending down
Better blood pressure control
Check routine echo
Continue metoprolol, losartan
Increase losartan to 75 mg with a now dose of 25 mg
# Prolonged QTc-EKG is better
# Hypokalemia-replaced potassium
# History of seizures-continue Keppra
# COPD-continue albuterol, budesonide/formoterol, fluticasone inhalers or equivalent
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
Sees Dr. Kim Quiroz Rad Onc and Dr.Hou Tay Onc
I spoke to Dr. Gisele Caraballo yesterday
Patient had a bronchoscopy in July 2022 which confirmed this. She was found to have DIESEL ENGINE PIPE FITTER metastasis and had gamma knife radiation in August 2022. November 2022 MRI showed some response but an MRI in April 2024 showed multiple brain metastasis. She
has not seen Dr. Rm since then.
Patient's cognitive dysfunction predated radiation
Sister also mentioned that patient underwent 3 rounds of chemotherapy and could not undergo anymore.
Currently she is not on any treatment
I encouraged family to get in touch with Dr. Rm tomorrow to see if she would be a candidate for hospice.
# Anxiety and depression-continue Zoloft, quetiapine and mirtazapine
# Dementia-continue Aricept
# Ex-smoker
# DVT prophylaxis-Lovenox
# Full code
D/W RN
Friend's son is financial POA
Reportedly sister has medical POA but cannot find papers however at this point decision maker will be sister.
Discussed with patient's friend's son at bedside and also with the patient's sister at bedside in detail.
They are not ready for hospice yet. Wants palliative care at [facility] when she goes back.
Discussed with case management
Spoke to pharmacy
Total time spent today more than 50 minutes
Part of this note was created using voice recognition system. Occasional wrong word or��sound alike� substitutions may have inadvertently occurred due to the inherent limitations of voice recognition software. If noted kindly bring it to my
attention for correction.
Anticipated Discharge: Within 24 hours
Subjective/Interval History
-
Date of Service: December 23, 2024
Objective Data
-
Labs:
Laboratory Results
12/23/24
11:33
Sodium 138
Potassium 4.2 D
Chloride 107
Carbon Dioxide 28
BUN 21 H
Creatinine 0.7
Glucose 93
Calcium 9.2
Vital Signs:
Vital Signs
Temp Pulse Resp BP Pulse Ox
98.1 F 68 16 169/93 96
12/23/24 07:05 12/23/24 08:29 12/23/24 08:29 12/23/24 08:00 12/23/24 08:29
I&O
12/22/24 12/23/24 12/24/24
06:59 05:59 06:59
Intake Total 900 / 900
Balance 900 / 900
[2024-12-23] MEDS: COZAAR 25 MG PO (12:54)
[2024-12-23 15:00] VITALS: BP 162/76
[2024-12-23] MEDS: LOVENOX SC (18:13)
[2024-12-23 19:20] VITALS: BP 163/76
[2024-12-23] MEDS: REMERON 30 MG PO (22:30)
[2024-12-23] MEDS: ARICEPT 5 MG PO (22:30)
[2024-12-23 23:41] VITALS: BP 142/84
[2024-12-24 03:39] VITALS: BP 154/74
[2024-12-24 07:53] VITALS: BP 181/102
[2024-12-24] MEDS: SEROQUEL 25 MG PO ×2 (08:33→19:53)
[2024-12-24] MEDS: PROTONIX 40 MG PO (08:34)
[2024-12-24] MEDS: KEPPRA 500 MG PO ×2 (08:34→19:52)
[2024-12-24] MEDS: LOW STRENGTH ASPIRIN 81 MG PO (08:34)
[2024-12-24] MEDS: ZYRTEC 10 MG PO (08:34)
[2024-12-24] MEDS: ZOLOFT 100 MG PO (08:34)
[2024-12-24] MEDS: COZAAR 75 MG PO (08:34)
[2024-12-24] MEDS: TOPROL XL 25 MG PO ×2 (08:35→19:55)
[2024-12-24] MEDS: SYMBICORT 160/4.5 MCG INHALER INH (09:04)
[2024-12-24] MEDS: VALIUM INJECTION 2 MG IV (09:40)
--- NOTE | 2024-12-24 11:30 | W.PN.HOSP.TC ---
Today's Communication/Plan
-
MRI
echo
Assessment / Plan
Assessment / Plan
84-year-old female with shortness of breath and chest tightness patient was found to be hypotensive at assisted living and transported to ED. Blood pressure was elevated to 200/162 mmHg received anxiolytics and metoprolol in the ER
EKG-sinus rhythm, possible left atrial enlargement, QTc 508
On examination patient is mildly confused
cardiovascular system S1-S2 appreciated
Chest clear to auscultation
Patient is mildly confused but able to converse. Confusion better.
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
Patient family agreeable with EMERGENCY VEHICLE OPERATIONS INSTRUCTOR imaging. I have ordered 2 mg of Valium on-call for MRI as Versed cant be given on the floor.
# Hypertensive emergency blood pressure elevated at 200/162 in the ER
Elevated troponin and chest pain
Troponin now trending down
Better blood pressure control
Check routine echo
Continue metoprolol, losartan
Increase losartan to 100 mg with a now dose of 25 mg
PRN lopressor.
# Prolonged QTc-EKG is better
# Hypokalemia-replaced potassium
# History of seizures-continue Keppra
# COPD-continue albuterol, budesonide/formoterol, fluticasone inhalers or equivalent
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
Sees Dr. Kim Quiroz Rad Onc and Med Onc
I spoke to Dr. Gisele Caraballo on 12/22/24.
Patient had a bronchoscopy in July 2022 which confirmed this. 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 November 2022 MRI showed some response but an MRI in April 2024 showed multiple brain metastasis. She
has not seen Dr. Rm since then.
Patient's cognitive dysfunction predated radiation
Sister also mentioned that patient underwent 3 rounds of chemotherapy and could not undergo anymore.
Currently she is not on any treatment
I encouraged family to get in touch with Dr. Rm to see if she would be a candidate for hospice.
# Anxiety and depression-continue Zoloft, quetiapine and mirtazapine
# Dementia-continue Aricept
# Ex-smoker
# DVT prophylaxis-Lovenox
# Full code
D/W RN at bed side.
Friend's son is financial POA
Reportedly sister has medical POA but cannot find papers however at this point decision maker will be sister.
12/23/24-Discussed with patient's friend's son at bedside and also with the patient's sister at bedside in detail.
They are not ready for hospice yet. Wants palliative care at [facility] when she goes back.
Part of this note was created using voice recognition system. Occasional wrong word or��sound alike� substitutions may have inadvertently occurred due to the inherent limitations of voice recognition software. If noted kindly bring it to my
attention for correction.
Anticipated Discharge: Within 24 hours
Subjective/Interval History
-
Date of Service: December 24, 2024
Objective Data
-
Vital Signs:
Vital Signs
Temp Pulse Resp BP Pulse Ox
97.5 F 75 18 181/102 94
12/24/24 07:53 12/24/24 08:34 12/24/24 07:53 12/24/24 08:34 12/24/24 10:15
I&O
12/23/24 12/24/24 12/25/24
05:59 06:59 06:59
Intake Total 900 / 900 720 / 720
Balance 900 / 900 720 / 720
[2024-12-24 11:49] VITALS: BP 157/88
[2024-12-24] MEDS: COZAAR 25 MG PO (12:16)
--- NOTE | 2024-12-24 14:07 | CM ---
MRI and Echo today. Discharge POC: Return to [facility] when she arrives. Family no longer wants Hospice.
[2024-12-24 16:10] VITALS: BP 172/89
[2024-12-24] MEDS: LOVENOX SC (17:00)
[2024-12-24 18:09] VITALS: BP 168/93
[2024-12-24] MEDS: SYMBICORT 160/4.5 MCG INHALER 1 PUFF INH (20:16)
[2024-12-24] MEDS: NORVASC 2.5 MG PO (21:31)
[2024-12-24] MEDS: REMERON 30 MG PO (21:31)
[2024-12-24] MEDS: ARICEPT 5 MG PO (21:32)
[2024-12-24 23:38] VITALS: BP 156/79
[2024-12-25 07:00] VITALS: BP 162/87
[2024-12-25 07:02] LABS: Blood Urea Nitrogen 15 mg/dl (7-17); Calcium 9.2 mg/dl (8.4-10.2); Carbon Dioxide 30 mmol/L (22-30); Chloride 106 mmol/L (98-107); Estimated Creatinine Clearance 44 ml/min; Glucose 88 mg/dl (70-99); Potassium 3.7 mmol/L (3.5-5.1); Sodium 140 mmol/L (135-145); eGFR > 60.00
[2024-12-25] MEDS: SYMBICORT 160/4.5 MCG INHALER 1 PUFF INH (07:23)
[2024-12-25] MEDS: LOW STRENGTH ASPIRIN 81 MG PO (08:10)
[2024-12-25] MEDS: KEPPRA 500 MG PO (08:11)
[2024-12-25] MEDS: ZYRTEC 10 MG PO (08:12)
[2024-12-25] MEDS: TOPROL XL 25 MG PO (08:12)
[2024-12-25] MEDS: COZAAR 100 MG PO (08:12)
[2024-12-25] MEDS: ZOLOFT 100 MG PO (08:12)
[2024-12-25] MEDS: SEROQUEL 25 MG PO (08:12)
[2024-12-25] MEDS: PROTONIX 40 MG PO (08:12)
--- NOTE | 2024-12-25 08:28 | PN.CDI ---
CDI
- -
CDI:
Physician Documentation Request
Admit Date: 12/22/24 02:29
Dear Doctor,
Please review the following and provide your response in the progress notes.
Clinical Indicators:
Pt admitted with hypertensive crisis, SOB and chest tightness.
H&P: '
Hypertensive Emergency - Patient presents with markedly elevated BP (200/162) and evidence of end-organ impairment in the form of elevated troponin (0.123), chest pain, etc.'
Based on the above, could you clarify in the progress notes, the appropriate diagnosis, if significant, that supports the above abnormalities and additional evaluation, monitoring and/or treatment rendered:
Non-ischemic myocardial injury
Demand ischemia
Insignificant elevated troponin
Other
Use of terms such as suspected, likely, concern for, or probable (associated with a specific diagnosis that is being evaluated, monitored, or treated as if it exists) are acceptable and can be coded in the inpatient setting, when documented at the
time of discharge.
Thank you,
Inez Mack RN, BSN
CDI Specialist
[place] [facility]
Please use your independent medical judgment in providing your response.
--- NOTE | 2024-12-25 11:31 | W.PN.HOSP.TC ---
Addendum entered and electronically signed by Kody Concepcion MD 12/26/24 11:42:
Elevated troponin-nonischemic myocardial injury secondary to hypertensive emergency
Addendum entered and electronically signed by Kody Concepcion MD 12/25/24 15:54:
Dictation- [id number]
Original Note:
Today's Communication/Plan
-
Will discharge the patient today with palliative care set up at [facility]
blood pressure medicines may need to be adjusted as outpatient also. I reviewed this with patient's sister.
Assessment / Plan
Assessment / Plan
84-year-old female with shortness of breath and chest tightness patient was found to be hypotensive at assisted living and transported to ED. Blood pressure was elevated to 200/162 mmHg received anxiolytics and metoprolol in the ER
EKG-sinus rhythm, possible left atrial enlargement, QTc 508
On examination patient is mildly confused
cardiovascular system S1-S2 appreciated
Chest clear to auscultation
Patient is mildly confused but able to converse. Confusion better. I think at baseline.
MRI Brain-IMPRESSION: Significant interval improvement in right cerebral hemisphere white matter edema and mass effect compared to CT of the head of December 09, 2023. There is encephalomalacia in the right temporal lobe suggesting previous treatment
of neoplasm. Residual enhancement in this region is concerning for residual neoplasia.Numerous enhancing lesions throughout the brain, with most of the enhancing lesions described above. These are compatible with metastatic lesions. No significant
associated mass effect, with no significant midline shift.
ECHO-Small left ventricle with mild left ventricular hypertrophy and preserved systolic function, ejection fraction 60-65%.Thickened anterior mitral leaflet with dense posterior mitral annular calcification and a calcific mass likely representing an
extension of annular calcification and encompassing most of the posterior leaflet with mild mitral regurgitation and borderline dilated left atrium. Mild aortic sclerosis without stenosis or regurgitation.Normal right heart, pulmonary artery
systolic pressure is 33 mmHg.There are no prior studies available for comparison.
# Encephalopathy-likely secondary to underlying dementia and [employer]AN[employer] DEVEL[employer] metastasis and being in the hospital
MRI shows [employer] DEVEL[employer] mets
# Hypertensive emergency blood pressure elevated at 200/162 in the ER
Elevated troponin and chest pain
Troponin now trending down
Better blood pressure control
Continue metoprolol, losartan, amlodipine 2.5 mg added
Increased losartan to 100 mg
Can have as needed hydralazine p.o. for discharge
I will not increase amlodipine further until it takes its full effect.
# Prolonged QTc-EKG is better
# Hypokalemia-replaced potassium
# History of seizures-continue Keppra
# COPD-continue albuterol, budesonide/formoterol, fluticasone inhalers or equivalent
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
Sees Dr. Kim Quiroz Rad Onc and Med Onc
I spoke to Dr. Gisele Caraballo on 12/22/24.
Patient had a bronchoscopy in July 2022 which confirmed this. She was found to have [employer]ANGO DEVELOPER metastasis and had gamma knife radiation in August 2022. November 2022 MRI showed some response but an MRI in April 2024 showed multiple brain metastasis. She
has not seen Dr. Rm since then.
Patient's cognitive dysfunction predated radiation
Patient was on somatostatin analogs for 2 years , and could not even tolerate that therefore it was stopped. Dr. Rm has not seen her since April 2024
Currently she is not on any treatment
Per discussion with Patient is a candidate for hospice.
# Anxiety and depression-continue Zoloft, Quetiapine and Mirtazapine
# Dementia-continue Aricept
# Ex-smoker
# DVT prophylaxis-Lovenox
# DNR
D/W RN at bed side.
Friend's son is financial POA
Reportedly sister has medical POA but cannot find papers however at this point decision maker will be sister.
D/W today
Discussed with patient's sister on the phone in detail. She stated that they are not ready for hospice yet as that would scare the patient. I discussed about palliative care and they want palliative care for the patient. DNR was confirmed.
Part of this note was created using voice recognition system. Occasional wrong word or��sound alike� substitutions may have inadvertently occurred due to the inherent limitations of voice recognition software. If noted kindly bring it to my
attention for correction.
More than 30 minutes spent in discharge including
Final examination of the patient
Summarizing hospital stay
Instructions for continuing care to all relevant caregivers
Preparation of discharge records, prescriptions, and referral forms
Anticipated Discharge: Today
Subjective/Interval History
-
Date of Service: December 25, 2024
Objective Data
-
Labs:
Laboratory Results
12/25/24
05:53
Sodium 140
Potassium 3.7
Chloride 106
Carbon Dioxide 30
BUN 15
Creatinine 0.7
Glucose 88
Calcium 9.2
Vital Signs:
Vital Signs
Temp Pulse Resp BP Pulse Ox
97.4 F 70 14 162/87 96
12/25/24 07:00 12/25/24 08:12 12/25/24 07:27 12/25/24 08:12 12/25/24 08:27
I&O
12/24/24 12/25/24 12/26/24
06:59 06:59 06:59
Intake Total 720 / 720 970 / 970
Balance 720 / 720 970 / 970
--- NOTE | 2024-12-25 13:26 | CM ---
Patient has been medically cleared for discharge back to [facility] with resumption of [facility]. Friend will transport to facility. [facility] notified.
Nurse to Nurse report #: [phone] Dodie guzman
[phone] Dodie SMYTH
FAX #: [phone]
[2024-12-25 13:33] VITALS: BP 151/87
--- NOTE | 2024-12-25 13:34 | PTCARENOTE ---
Pt being DC'd back to facility, DC paperwork given to friend who is picking pt up, sister Brielle made aware. Friend to transport her back on palliative care. IV removed.
--- NOTE | 2024-12-25 15:53 | W.DS.TRANS ---
DC Summary - [employer] In[employer]
-
Discharge Instructions:
Discharge Diagnosis/Procedures Hypertensive emergency
Confusion
Hypokalemia
Anxiety and depression
Dementia
Metastatic neuroendocrine tumor with [employer]
metastasis
Ex-smoker
Diet As tolerated
Activity As tolerated
Driving Restrictions No driving
Other Services VN
Instructions:
Stand-Alone Forms:
Changes to Home Medications: Yes
Discharge Medications:
DC Medications w/original date entered in [employer]
cetirizine 10 mg tablet 10 mg PO DAILY Allergies 07/14/23
fluticasone propionate 50 mcg/actuation nasal spray,suspension 2 spray intranasal DAILY Allergies 07/14/23
metoprolol succinate 25 mg tablet,extended release 24 hr (Toprol XL) 25 mg PO BID Blood Pressure 07/14/23
acetaminophen 500 mg tablet 1,000 mg PO Q6HPRN PRN mild pain 01/14/24
donepezil 5 mg tablet 5 mg PO HS Alzheimer's 01/14/24
pantoprazole 40 mg tablet,delayed release 40 mg PO DAILY Gastrointestinal Issue 01/14/24
albuterol sulfate 90 mcg/actuation aerosol inhaler 2 puff inhalation R Q4HPRN PRN copd 01/24/24
camphor-menthol 0.5 %-0.5 % lotion (Anti-Itch (menthol-camphor)) 1 applic topical BID Pain 01/24/24
levetiracetam 500 mg tablet (Keppra) 500 mg PO BID Seizures #60 tabs 01/26/24
quetiapine 25 mg tablet 25 mg PO BID Mental Health/Anxiety 02/25/24
sertraline 100 mg tablet 100 mg PO DAILY Mental Health/Anxiety 02/25/24
budesonide-formoterol HFA 160 mcg-4.5 mcg/actuation aerosol inhaler 2 inh inhalation BID Lung/Breathing Issues 12/22/24
melatonin 5 mg tablet 5 mg PO HS PRN insomnia 12/22/24
mirtazapine 30 mg tablet 30 mg PO HS Mental Health/Anxiety 12/22/24
amlodipine 2.5 mg tablet 2.5 mg PO HS Blood pressure #30 tabs 12/25/24
aspirin 81 mg chewable tablet 81 mg PO DAILY Blood clot prevention/tx #0 tabs 12/25/24
losartan 100 mg tablet 100 mg PO DAILY Blood pressure #30 tabs 12/25/24
Home Medication Changes
new
Norvasc
Increased dose of Losartan
Pending Results: No
== END 2024-12-25 13:40 | disposition home or self-care (01) | DRG 305 ==
LOC: 2 NORTH 02:29
PROVIDERS: ADMITTING PHYSICIAN Hospitalist; ATTENDING PHYSICIAN Hospitalist; EMERGENCY PHYSICIAN Emergency Medicine; FAMILY PHYSICIAN Nurse Practitioner
DX: I16.1 Hypertensive emergency (principal); G93.40 Encephalopathy, unspecified; C78.00 Secondary malignant neoplasm of unspecified lung; C7A.090 Malignant carcinoid tumor of the bronchus and lung; I5A Non-ischemic myocardial injury (non-traumatic); C79.31 Secondary malignant neoplasm of brain; F41.0 Panic disorder [episodic paroxysmal anxiety]; F41.1 Generalized anxiety disorder; F32.A Depression, unspecified; J44.9 Chronic obstructive pulmonary disease, unspecified; D3A.00 Benign carcinoid tumor of unspecified site; Z66 Do not resuscitate; E87.6 Hypokalemia; Z87.891 Personal history of nicotine dependence; Z11.52 Encounter for screening for COVID-19; Z79.82 Long term (current) use of aspirin; Z79.899 Other long term (current) drug therapy
CPT/HCPCS: 70553; 71046; 80048; 81003; 81015; 83735; 84484; 85025; 85027; 87502; 87811; 93005; 93306; 94640; 96374; 97162; 99291; A9575